=== PATIENT | female | born 1935 | race Caucasian/White ===

== ENCOUNTER 2016-11-09 10:20 | Observation (INO) ==
--- NOTE | 2016-11-09 11:07 | CT Report ---
CT head/brain wo con Indication: Left-sided facial droop, tingling, history of hypertension. Comparison: None. Technique: CT of the brain was performed without administration of intravenous contrast. The CT examination was performed using one or more of the following dose reduction techniques: Automatic exposure control, adjustment of the mA and kV according to patient size, use of acute or iterative reconstruction techniques. Findings: Age-appropriate central and cortical atrophy is present. Periventricular hypoattenuation of white matter is fairly symmetric with exception of right frontal lobe which demonstrates a more focal area of low attenuation extending into the subcortical white matter. The overlying cortex appears somewhat hyperattenuating the significance of this may be artifactual. The basal cisterns are patent. No significant abnormality is demonstrated to involve the posterior fossa or cerebellum. Orbits and globes demonstrate no evidence of significant pathology. The paranasal sinuses are clear. No significant abnormality is demonstrated to involve the mastoid air cells. The calvarium and overlying soft tissues demonstrate no evidence of acute pathology. Impression: 1. Asymmetric frontal hypoattenuation of white matter on the right extending into the subcortical white matter is concerning for early ischemic change. MRI without intravenous contrast administration is recommended for further characterization and exclusion of acute ischemia. Critical test results were called to Dr. Meza, [facility] [place] [facility], at 1103 hours 11/09/2016 . 11/09/2016 10:51 AM PROCEDURE INTERPRETED AT [facility] DEPARTMENT OF RADIOLOGY Final Report Signed by: Dr. Luis Alberto Martinez
[2016-11-09] MEDS ORDERED: BISACODYL 5 MG TABLET PO PRN (13:45)
[2016-11-09] MEDS ORDERED: ACETAMINOPHEN 325 MG TABLET PO PRN (13:45)
[2016-11-09] MEDS ORDERED: ONDANSETRON 4 MG/2 ML VIAL IV PRN (13:45)
[2016-11-09] MEDS ORDERED: DOCUSATE SODIUM 100 MG CAPSULE PO PRN (13:45)
[2016-11-09] MEDS ORDERED: ZALEPLON 5 MG CAPSULE PO PRN (13:45)
--- NOTE | 2016-11-09 13:58 | Cardiology History & Physical ---
History of Present Illness History of present illness: Ms. Oseguera is a 80 year old female Home Medications Medication Instructions Recorded Confirmed Type Allopurinol 100 mg PO DAILY 03/13/15 03/13/15 History Budesonide/Formoterol 80-4.5 2 puff INH BID 03/13/15 03/13/15 History [Symbicort 80-4.5] Carvedilol [Coreg] 25 mg PO BID 03/13/15 03/13/15 History Digoxin Tab [Lanoxin Tab] 0.125 mg PO DAILY@1300 03/13/15 03/13/15 History Diltiazem Cd Cap [Cardizem CD] 1 tablet PO DAILY 03/13/15 03/13/15 History Furosemide Tab [Lasix Tab] 40 mg PO BID DIURETIC 03/13/15 03/13/15 History Glimepiride 4 mg PO BID 03/13/15 03/13/15 History Losartan Potassium 100 mg PO DAILY 03/13/15 03/13/15 History Potassium Chloride [Klor-Con 10] 1 tablet PO BID 03/13/15 03/13/15 History Pregabalin [Lyrica] 50 mg PO BEDTIME 03/13/15 03/13/15 History Warfarin [Coumadin] 0.5 tablet PO DIRECTED 03/13/15 03/13/15 History Warfarin [Coumadin] 7.5 mg PO DAILY@1800 03/13/15 03/13/15 History cloNIDine TAB [Catapres Tab] 0.1 mg PO BID 1 Days 11/07/16 Rx Allergies Allergy/AdvReac Type Severity Reaction Status Date / Time No Known Allergies Allergy Unverified 03/13/15 12:54 Medical,Surgical,& Family Hx - Medical History Cardio: History of: Cardiac Dysrhythmia (AFIB), Hypertension, Cardiovascular Problems (III/ holosystolic murmur) Endocrine: History of: Diabetes Mellitus (IDDM), Dyslipidemia Respiratory: History of: COPD Renal: History of: Renal Failure (CKD) Gastrointestinal: History of: Gastrointestinal Bleed - Surgical History Cardiac Surgeries: Sugical HX of: Cardiac Catheterization Reproductive Surgeries: Surgical HX of;: Hysterectomy - Social History Smoking Status: Former smoker Cardiology Physical Exam - Constitutional Vitals: Intake and Output 11/08/16 11/09/16 11/09/16 23:59 07:59 15:59 Other: Weight 97.976 kg Patient Weight 11/09/16 23:59 Weight 97.976 kg
--- NOTE | 2016-11-09 14:10 | EKG Report ---
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
[2016-11-09 14:15] LABS: Basophils % 0.4 % (0.0-0.8); Eosinophils # 0.2 10*3/uL (0.0-0.87); Eosinophils % 2.2 % (0.00-10.9); Hematocrit 41.5 VOL% (35.7-47.0); Hemoglobin 13.2 GM/DL (12.0-16.0); Immature Granulocytes % 0.4 %; Immature Granulocytes Absolute 0.03 #; Lymphocytes # 1.7 10*3/uL (1.4-4.0); Lymphocytes % 22.7 % (21.3-54.2); Mean Corpuscular HGB Conc 31.8 GM/DL (32-36); Mean Corpuscular Hemoglobin 30 PG (27-34); Mean Corpuscular Volume 93.7 FL (87-102); Mean Platelet Volume 10.6 FL (9.6-12.0); Monocytes # 0.7 10*3/uL (0.11-0.8); Monocytes % 9.3 % (1.7-12.7); Neutrophils # 4.7 10*3/uL (1.4-7.4); Platelet Count 205 T/CUMM (130-400); Red Blood Count 4.43 MC/CUMM (3.8-5.5); Red Cell Distribution Width 15.4 % (9.3-17.3); White Blood Count 7.3 T/CUMM (4-12)
[2016-11-09 14:51] LABS: Albumin 3.6 G/DL (3.4-5.0); Bilirubin,Total 0.4 MG/DL (0.2-1.0); Calcium 8.7 MG/DL (8.5-10.1); Potassium 4.1 MMOL/L (3.5-5.1); Total Protein 7.1 G/DL (6.4-8.3)
--- NOTE | 2016-11-09 16:17 | Event Note ---
Patient was admitted by Dr. Meza from clinic today. Please see the scanned in history and physical in [facility].
--- NOTE | 2016-11-09 16:23 | Event Note ---
Patient gone for MRI
--- NOTE | 2016-11-09 17:07 | Magnetic Resonance Report ---
MR head/brain wo con Indication: Altered mental status. Slurred speech. Facial droop. Comparison: None. Technique: Using 1.5 Anjali magnet, multisequence multiplanar MR imaging of the brain was performed without the administration of intravenous contrast. Findings: There is a central focus of increased signal within the aleksandr measuring 6.5 mm that has corresponding low signal on ADC map and faint increase in T2 as well as FLAIR signal on corresponding axial images. Subacute pontine infarct is suggested. Additionally present, there is a focal area of mixed T1 signal slightly hyperintense to the adjacent cortex within the anterior right frontal cortex as demonstrated on image #15 of the axial sequences. This has increased signal on T2 and increased signal in FLAIR sequences that has heterogeneous appearance. The small focus measures 17 mm in transverse dimension, 10.8 mm in AP dimension, and 16 mm in craniocaudal dimension. No acute intracranial hemorrhage is present. Ventricles appear symmetric with no midline shift. Increased white matter signal is noted within the anterior subcortical white matter of the right frontal lobe extending into the deep white matter. This extends to the margin of the above-described cortical mass. Additional bilateral areas of increased T2/FLAIR signal within the periventricular white matter are present that could reflect microvascular ischemic change. The basal cisterns appear patent. The arterial flow voids appear intact. The posterior fossa as well as cerebellum demonstrate no evidence of acute pathology. The orbits and globes demonstrate no evidence of acute pathology. The paranasal sinuses and mastoid air cells demonstrate no evidence of significant mucoperiosteal thickening. The calvarium as well as the soft tissues overlying the calvarium demonstrate no evidence of acute pathology. Impression: 1. Small focus of restricted diffusion centrally located within the aleksandr is considered compatible with central pontine infarct. Given the corresponding faintly increased T2/FLAIR signal, this likely reflects a subacute infarction. 2. 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 Measurements are as above. Repeat imaging following administration of intravenous contrast is recommended for further characterization. 11/09/2016 4:54 PM PROCEDURE INTERPRETED AT [facility] DEPARTMENT OF RADIOLOGY Final Report Signed by: Dr. Luis Alberto Martinez
--- NOTE | 2016-11-09 18:25 | Event Note ---
Patient's tal[place] afternoon. We will await the patient's evaluation. Neurology is to see the patient. She was going he came by earlier. Await Dr. Hernandez's evaluation. Dr. Moore is seen the patient for history of physical earlier. We' ll monitor the blood pressure make adjustments as needed indicated.
[2016-11-09] MEDS: INSULIN REGULAR 100 UNIT/ML SUBCUT SCH (21:00)
[2016-11-09] MEDS ORDERED: cloNIDine 0.1 MG TABLET PO ONE (22:48)
[2016-11-10] MEDS: INSULIN REGULAR 100 UNIT/ML SUBCUT SCH ×4 (08:31→22:04)
[2016-11-10] MEDS ORDERED: amLODIPine 5 MG TABLET PO SCH (09:00)
[2016-11-10] MEDS ORDERED: amLODIPine 10 MG TABLET PO SCH (09:00)
[2016-11-10] MEDS: PANTOPRAZOLE 40 MG TABLET PO SCH (10:11)
[2016-11-10 13:10] LABS: INR 1.8; PT Patient Result 19.2 SECS
[2016-11-10] MEDS ORDERED: amLODIPine 5 MG TABLET PO ONE (13:10)
--- NOTE | 2016-11-10 14:14 | Cardiology Progress Note ---
Assessment and Plan (1) Labile hypertension Status: Acute Assessment and plan: This is been a recent persistent problem and we need to adjust her medications which we are doing. She has no overt etiology of this. We will check her 24 hour for metanephrines and VMA's. Current Visit: Yes (2) Chronic atrial fibrillation Status: Chronic Assessment and plan: Will monitor heart rates off her rate limiting drugs. This certainly may increase her heart rate may have to adjust these. We'll try to use something different for her heart rates if needed. Current Visit: Yes (3) Type 2 diabetes mellitus Status: Chronic Assessment and plan: Is a chronic issue and we are watching patient with sliding scale. 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 We'll check carotid Dopplers. Current Visit: Yes (5) Carotid artery disease Status: Chronic Assessment and plan: Follow-up on carotid Dopplers. Certainly this may contribute to her stroke event. Current Visit: Yes (6) Tricuspid valve regurgitation Status: Chronic Assessment and plan: Because of her symptomatology will go ahead and check her echocardiogram. Current Visit: Yes (7) Mitral valve regurgitation Status: Chronic Assessment and plan: Plan follow-up with echocardiogram. Current Visit: Yes (8) Pulmonary hypertension Status: Chronic Assessment and plan: Doubt this is contributing to anything but we need to reassess significance of this by echocardiogram. Current Visit: Yes Cardiology - PN: Subj Interval history: The patient feels fairly well today but complains still little tingling numbness left side the face. We await neurology's evaluation and opinion regarding her abnormal CT/MRI. Question is patient's stroke and has so Y best approach is with her present medications. Her blood pressure continues to be an issue. We need to make some adjustments on her medications which were doing. This is been somewhat difficult to control recently. She's been on multiple medications but apparently has some intolerance to some of the medications. We are making some adjustments to see how she responds. We are certainly going to hold medications that cause bradycardia including the beta wilber and clonidine. She has chronic atrial fibrillation we may see that her heart rates increased and so we may have to add back some rate control medications such as digoxin or beta wilber. I discussed our plans for blood pressure with the family. She has normal renal function so do not feel he has some underlying renal process tocolysis. We may need to do a 24 hour urine for metanephrines and VMA. Exam (Progress Note) - Constitutional Vitals: Period Temp Pulse Resp BP Sys/Da Silva Pulse Ox Last 24 Hr 98 F-98.8 F 52-74 14-20 151-197/74-96 93-98 Exam: General appearance: normal weight, no acute distress HEENT exam: normal inspection, atraumatic Neck exam: normal inspection no JVD. No carotid bruit. Trachea is in midline Respiratory/lungs exam: clear to auscultation bilaterally good air movement. Cardiovascular exam: regular rate and rhythm, no murmur or gallop or rub. No precordial lift. Chest wall exam: nontender GI/Abdominal exam: normal bowel sounds, soft, nontender, no abdominal bruits or pulsatile masses. Extremeties/musculoskeletal: normal inspection without edema or cyanosis. Neurological exam: alert, oriented X3, no focal deficits Psychiatric exam: normal affect, normal mood. Cognitive function is grossly normal. Skin exam: normal color, warm Result/EKG - Labs CBC & BMP: 11/09/16 14:04 11/09/16 14:04 Lab Results: I have reviewed the past 24 hour labs Labs: Laboratory Results - last 24 hr 11/09/16 11/09/16 11/09/16 14:04 14:04 20:50 WBC 7.3 RBC 4.43 Hgb 13.2 Hct 41.5 MCV 93.7 MCH 30 MCHC 31.8 L RDW 15.4 Plt Count 205 MPV 10.6 Neut % (Auto) 65.0 Lymph % (Auto) 22.7 [place] % (Auto) 9.3 Eos % (Auto) 2.2 Baso % (Auto) 0.4 Neut # (Auto) 4.7 Lymph # (Auto) 1.7 [place] # (Auto) 0.7 Eos # (Auto) 0.2 Baso # (Auto) 0.0 Immature Gran % 0.4 Nucleated RBC % 0.0 Immature Gran # 0.03 Nucleated RBCs # 0.00 INR PT Patient/Control Mix Sodium 136 Potassium 4.1 Chloride 101 Carbon Dioxide 28 Anion Gap 11.1 BUN 22 H Creatinine 0.80 GFR Calculation 83 BUN/Creatinine Ratio 27.00 H Glucose 207 H POC Glucose 197 H Calculated Osmolality 280.0 Calcium 8.7 Total Bilirubin 0.40 AST 17 ALT 19 Alkaline Phosphatase 103 Total Protein 7.1 Albumin 3.6 Globulin 3.5 Albumin/Globulin Ratio 1.0 L 11/10/16 11/10/16 11/10/16 07:40 12:05 12:56 WBC RBC Hgb Hct MCV MCH MCHC RDW Plt Count MPV Neut % (Auto) Lymph % (Auto) [place] % (Auto) Eos % (Auto) Baso % (Auto) Neut # (Auto) Lymph # (Auto) [place] # (Auto) Eos # (Auto) Baso # (Auto) Immature Gran % Nucleated RBC % Immature Gran # Nucleated RBCs # INR 1.8 PT Patient/Control Mix 19.2 D Sodium Potassium Chloride Carbon Dioxide Anion Gap BUN Creatinine GFR Calculation BUN/Creatinine Ratio Glucose POC Glucose 116 H 185 H Calculated Osmolality Calcium Total Bilirubin AST ALT Alkaline Phosphatase Total Protein Albumin Globulin Albumin/Globulin Ratio - Impressions Impressions: Her telemetry reveals atrial fibrillation with controlled ventricular response at this time. Quality Measures - Stroke Onset of Symptoms Date: 11/07/16 Symptom Onset Unknown: Yes
--- NOTE | 2016-11-10 15:31 | Event Note ---
This is my second visit. Patient gone for ultrasound.
[2016-11-10] MEDS: CHLORTHALIDONE 25 MG TABLET PO SCH (15:35)
--- NOTE | 2016-11-10 15:50 | Ultrasound Report ---
Exam: Carotid ultrasound Date: 11/10/2016 Comparison: 12/25/2009 Technique: Duplex scans of the carotid and vertebral arteries using B-mode/Rmoe scale imaging and Doppler spectral analysis and color flow. Reason: CVA, left facial droop Findings: The right ICA measures 5.5 mm in diameter and the left ICA measures 5.1 mm in diameter. Color-flow documented in the visualized arteries. The peak systolic velocities are as follows: Right CCA: 44.5 cm/s Right ICA: 66.3 cm/s Right ECA: 61.2 cm/s Left CCA: 55.9 cm/s Left ICA: 84.6 cm/s Left ECA: 72.8 cm/s The peak systolic ICA/CCA velocity ratios are as follows: 1.5 on the right and 1.5 on the left. Antegrade flow is present in both vertebral arteries. Impression:[Less than 50% stenosis in both internal carotid arteries with heterogeneous plaque formation. Antegrade flow in both vertebral arteries.] The Society of Radiologists in Ultrasound consensus conference criteria was used. The Ultrasound images were captured and stored. PROCEDURE INTERPRETED AT [facility] DEPARTMENT OF RADIOLOGY Final Report Signed by: Dr. Jeanette Duarte
[2016-11-10 15:54] LABS: Apearance,Urine CLEAR (Clear); Bacteria,Urine Moderate /HPF (Few); Bilirubin,Urine Negative (Negative); Blood, Urine Negative (Negative); Glucose,Urine (UA) 50 mg/dL (Negative); Ketones,Urine Negative (Negative); Nitrite,Urine Negative (Negative); Protein,Urine Negative; RBC,Urine <1 /HPF (0-4); Squamous Epithelial Cell,Urine Occasional /HPF (0-10); Urine Color Straw (Yellow); Urine Specific Gravity 1.003 (1.001-1.035); Urine Urobilinogen < 2.0 EU/DL (0.2-1.0)
[2016-11-10] MEDS: WARFARIN 7.5 MG TABLET PO SCH (18:06)
--- NOTE | 2016-11-10 20:25 | ECHO Report ---
Jeanette Oseguera 11/10/2016 Exam Date: 14:54 Referring Physician: Arabella Dominguez Technologist: JESSY Age: 80 Ht (in): 66 Wt (lb): 215 FExam [facility] Gender: Echo [id number]: pulmonary HTN, TR, MR, CAD, HTN, chIndications:ronic Diabetes, A Fib BP: 186 / 84 HR: 63 sinus/supraventricularRhythm: GoodTechnical Quality: IMPRESSIONS 1. Left ventricle is normal size with concentric left ventricular hypertrophy. Ejection fraction is 55-60%. 2. Right ventricle is mildly increased in size with mild to moderately dilated right atrium. 3. Severely dilated left atrium. 4. Sclerotic mitral valve mitral and calcification and moderate regurgitation. 5. Aortic valve sclerotic structure but tricuspid without Doppler abnormalities. 6. Moderate tricuspid regurgitation. 7. Severely elevated right-sided pressures. MEASUREMENTS (Male / Female) Normal Values 2D ECHO LV Diastolic Diameter PLAX 4.3 cm 4.2 - 5.9 / 3.9 - 5.3 cm LV Systolic Diameter PLAX 2.3 cm LV Fractional Shortening PLAX 46.1 % IVS Diastolic Thickness 1.7 cm 0.6 - 1.0 / 0.6 - 0.9 cm LVPW Diastolic Thickness 1.3 cm 0.6 - 1.0 / 0.6 - 0.9 cm RV Internal Dim ED PLAX 3.3 cm Aortic Root Diameter 2.4 cm LA Systolic Diameter LX 5.4 cm 3.0 - 4.0 / 2.7 - 3.8 cm DOPPLER TR Peak Velocity 406.0 cm/s TR Peak Gradient 65.9 mmHg FINDINGS Left Ventricle Severely increased septal wall thickness. Mildly increased posterior wall thickness. Moderate concentric left ventricular hypertrophy with diastolic dysfunction. Left ventricular ejection fraction is estimated at 55-60 %. Right Ventricle Mildly increased right ventricular size but appears to have normal systolic function Right Atrium Mild to moderately increased right atrial size. Left Atrium Severely increased left atrial diameter. Mitral Valve Mild mitral valve sclerosis with posterior mitral annular calcification. Moderate mitral valve regurgitation. Aortic Valve Mild aortic valve sclerosis. No Doppler abnormalities. Tricuspid Valve Morphologically normal tricuspid valve. Moderate tricuspid valve regurgitation. Tricuspid regurgitation velocities suggest a PAP of 65.9 mmHg + RAP. Pulmonic Valve Morphologically normal pulmonic valve. Trace to mild pulmonary valve regurgitation. Pericardium No pericardial effusion. Aorta Normal size aortic root and proximal ascending aorta. Tello Martinez MD (Electronically Signed) 10 November 2016 Final Date: 20:24
[2016-11-10] MEDS: GLIMEPIRIDE 4 MG TABLET PO SCH (22:05)
[2016-11-10] MEDS: POTASSIUM CHLORIDE 10 MEQ TABLET PO SCH (22:05)
[2016-11-10] MEDS: PREGABALIN 50 MG CAPSULE PO SCH (22:05)
[2016-11-11 04:21] LABS: INR 1.7; PT Patient Result 18.1 SECS
--- NOTE | 2016-11-11 08:49 | Neurology Consult Note ---
History of Present Illness History of present illness: Ms. Oseguera is a 80 year old right-handed white lady who presented to the hospital with steady gait and not feeling well. Patient was found to have high blood pressure. She actually saw Dr. Moore and underwent a CT scan of the head which revealed questionable stroke later on admitted to the hospital for further evaluation. Patient also had some questionable left facial tingling and numbness. MRI read as a questionable pontine infarct. Patient has no lateralizing sign at this point. She reported that when she came to the hospital she has significant high blood pressure. She denies any speech difficulties, swallowing problems, localizing weakness. Patient reported that she had a unsteady gait for a long period of time. This has not changed. MRI of the brain revealed a small vessel disease cortically and subcortically and in the central pontine area. No acute changes seen. Echocardiogram reveals ejection fraction of 55-60%. Carotid Dopplers reveals less than 50% stenosis bilaterally. Home Medications Medication Instructions Recorded Confirmed Type Allopurinol 100 mg PO DAILY 03/13/15 11/09/16 History Budesonide/Formoterol 80-4.5 2 puff INH BID 03/13/15 11/09/16 History [Symbicort 80-4.5] Carvedilol [Coreg] 25 mg PO BID 03/13/15 11/09/16 History Digoxin Tab [Lanoxin Tab] 0.125 mg PO DAILY@1300 03/13/15 11/09/16 History Furosemide Tab [Lasix Tab] 40 mg PO BID DIURETIC 03/13/15 11/09/16 History Glimepiride 4 mg PO BID 03/13/15 11/09/16 History Losartan Potassium 50 mg PO DAILY 03/13/15 11/09/16 History Potassium Chloride [Klor-Con 10] 1 tablet PO BID 03/13/15 11/09/16 History Pregabalin [Lyrica] 50 mg PO BEDTIME 03/13/15 11/09/16 History Warfarin [Coumadin] 0.5 tablet PO SUTUSA 03/13/15 11/09/16 History Warfarin [Coumadin] 7.5 mg PO MOWEFRSA 03/13/15 11/09/16 History cloNIDine TAB [Catapres Tab] 0.1 mg PO BID 1 Days 04/16/17 04/18/17 Rx Albuterol Sulfate [Proair HFA] 2 puffs INH DAILY PRN 11/09/16 11/09/16 History Chlorthalidone 25 mg PO DAILY 11/09/16 11/09/16 History Ergocalciferol [Drisdol] 50,000 unit PO Q7D 11/09/16 11/09/16 History Insulin Glargine,Hum.rec.anlog 16 units SUBCUT BEDTIME 11/09/16 11/09/16 History [Lantus SoloStar] Magnesium Oxide [Magnesium] 1,200 mg PO DAILY 11/09/16 11/09/16 History Multivitamin (Ocuvite) [Ocuvite] 1 tablet PO DAILY 11/09/16 11/09/16 History Potassium Gluconate 500 mg PO DAILY 11/09/16 11/09/16 History amLODIPine [Norvasc] 5 mg PO DAILY 11/09/16 11/09/16 History Allergies Allergy/AdvReac Type Severity Reaction Status Date / Time No Known Allergies Allergy Unverified 03/13/15 12:54 12 point system: reviewed and no additional remarkable complaints except as stated Medical,Surgical,& Family Hx - Medical History Cardio: History of: Cardiac Dysrhythmia (AFIB), Hypertension, Cardiovascular Problems (III/ holosystolic murmur) HEENT: History of: Eye Problem (cataract) Endocrine: History of: Diabetes Mellitus (IDDM), Dyslipidemia Respiratory: History of: COPD Renal: History of: Renal Failure (CKD) Gastrointestinal: History of: Gastrointestinal Bleed Reproductive: History of: Ovarian Cysts - Surgical History Cardiac Surgeries: Sugical HX of: Cardiac Catheterization Abdominal Surgeries: Surgical HX of: Appendectomy, Cholecystectomy Reproductive Surgeries: Surgical HX of;: Hysterectomy Orthopedic Surgeries: Surgical HX of;: Total Knee Replacement (bilateral) - Family History Family History: Reports;: Family Diabetes, Family Heart Disease, Family Hypertension - Social History Smoking Status: Former smoker Frequency of Alcohol Use: None Type of Drug Use: None Exam - Constitutional Vitals: Period Temp Pulse Resp BP Sys/Da Silva Pulse Ox Last 24 Hr 97.6 F-98.8 F 63-89 15-95 136-208/67-106 93-96 Exam: GENERAL: Patient is in no acute distress. NECK: Neck is supple. There is no JVD. No carotid bruits present. No thyroid masses. CVS: First and second heart sounds are normal. There is no S3 present. Regular rate and rhythm. RESPIRATORY: Lungs are clear to auscultation without any rales or rhonchi. ABDOMEN: Soft and non-tender. Bowel sounds are present. There is no hepatosplenomegaly. EXT: There is no palpable edema. Peripheral pulses are present. Skin: No rashes Central Nervous system: General: Alert, awake and Oriented x 3 Speech: Fluent Comprehension: Intact and normal Facial expressions: Normal Cranial Nerves: CN1/Olfactory: Normal CN II/ Optic: Normal, Visual [place] unreliable CN III, and : PRITI & EOMI CN V: Normal & intact CN VII: face is symmetric CNVIII: Normal CN XI/X/XI/XII: Intact and Normal Motor: Bulk and Tone is normal. Strength in the right 4-5/5 Strength in the left 4-5/5 Sensory: Grossly intact for all the modalities of PP, LT and temp sense Reflexes: 1+ and symmetrical Cerebellar function: Normal finger to nose and heel to vides testing. Toes: Equivocal Gait: Able to get up and walk without assistance. Results - Labs CBC & BMP: 11/09/16 14:04 11/09/16 14:04 Assessment and Plan (1) Debility Status: Acute Assessment and plan: No evidence of acute stroke. Symptoms most likely represented accelerated hypertension. Continue Coumadin with target INR between 2 and 3. Add baby aspirin every other day No further recommendations from neuro standpoint Okay to go home when okay with PCP Follow-up with me on as needed basis Thank you for the consult Current Visit: Yes
[2016-11-11] MEDS ORDERED: ASPIRIN EC 81 MG TABLET PO SCH (09:00)
[2016-11-11] MEDS: POTASSIUM CHLORIDE 10 MEQ TABLET PO SCH ×2 (09:41→21:15)
[2016-11-11] MEDS: MAGNESIUM OXIDE 400 MG TABLET PO SCH (09:42)
[2016-11-11] MEDS: CHLORTHALIDONE 25 MG TABLET PO SCH (09:44)
[2016-11-11] MEDS: PANTOPRAZOLE 40 MG TABLET PO SCH (09:45)
[2016-11-11] MEDS: MULTIVITAMIN (OCUVITE) TABLET PO SCH (09:45)
[2016-11-11] MEDS: POTASSIUM GLUCONATE 500 MG TABLET PO SCH (09:45)
[2016-11-11] MEDS: ALLOPURINOL 100 MG TABLET PO SCH (09:46)
[2016-11-11] MEDS: GLIMEPIRIDE 4 MG TABLET PO SCH ×2 (09:48→21:15)
[2016-11-11] MEDS: INSULIN REGULAR 100 UNIT/ML SUBCUT SCH ×4 (09:49→21:15)
--- NOTE | 2016-11-11 10:04 | XRay Report ---
XR chest 2V Indication: Pulmonary hypertension Comparison: 07 November 2016 Findings: The heart and mediastinum are normal in size and configuration. The pulmonary vascularity is increased centrally, similar to previous study. Lung volumes are increased with prominent bronchial markings. No lung infiltrates, effusions, pneumothorax or other abnormality is demonstrated. Impression: Chronic lung changes. No acute process or significant change. PROCEDURE INTERPRETED AT [facility] DEPARTMENT OF RADIOLOGY Final Report Signed by: Dr. Ameya Irene
--- NOTE | 2016-11-11 11:45 | Discharge Summary ---
<Candida Braun - Last Filed: 11/12/16 15:28> Hospital Course - Hospital Course Hospital Course: Investment Analyst: Dr. Luke Martinez PCP: Dr. Coker Ms. Oseguera is a 80 year old female with a past medical history of COPD, pulmonary hypertension, diabetes, restless leg syndrome, TR, MR and chronic A. fib (on chronic anticoagulation with Coumadin, followed by Dr. Coker) . She was directly admitted to [facility] from cardiovascular [place] of the [facility] after seeing Dr. Meza November 09, 2016. At that time, she was complaining of facial numbness and tingling. She reportedly was seen in the ER on Tuesday and was noted to have uncontrolled blood pressure. Medications were then adjusted and patient was discharged home. Head CT was ordered and was noted to be abnormal, concerning for questionable stroke. At that time, patient was directly admitted to [facility] for further evaluation. She then underwent MRI which revealed a revealed a small vessel disease cortically and subcortically and in the central pontine area. It also revealed a probable intra-axial cortical- based neoplasm involving the anterior cortex of the right frontal lobe. Neurology was consulted. Dr. Thompson examined the patient. He felt that there was no evidence of acute stroke and that her symptoms were most likely secondary to accelerated hypertension. He recommends to continue Coumadin with target INR between 2-3 and 81 mg of aspirin every other day. Radiology then recommended a repeat MRI with contrast in order to better evaluate possible brain mass. MRI with contrast revealed 20 x 19 x 18 mm meningioma in the frontal lobe with adjacent cerebral edema. It also revealed an additional 7 x 6 x 5 mm meningioma in the right frontal convexity and moderate microvascular disease. Dr. Martinez discussed this with Dr. Thompson. Dr. Thompson feels that the meningiomas are benign. He recommends follow-up in approximately 1 month. Carotid ultrasound revealed less than 50% stenosis in both internal carotid arteries. Due to patient's history of severe TR, mitral regurgitation and pulmonary hypertension she underwent echocardiogram this admission. This revealed normal sized left ventricle with concentric left ventricular hypertrophy. Ejection fraction estimated at 55-60%. Sclerotic mitral valve with calcification and moderate regurgitation. Moderate tricuspid regurgitation and severely elevated right-sided pressures were noted. Aortic valve sclerosis. 24 hour urine was ordered to check for pheochromocytoma. Results pending. Blood pressure has better controlled after medications were adjusted. Patient was started on Procardia 30 mg p.o. daily and chlorthalidone. She was noted to be bradycardic when she was seen by Dr. Meza. At that time, he discontinued her clonidine. While in the hospital, all medications causing bradycardia, including beta-wilber and digoxin were held. Heart rates today are between 80 and 90 today. At this time, I think it is best that we restart her beta-wilber due to the fact that she has history of chronic atrial fibrillation. We will continue to hold her digoxin and clonidine. She will follow-up with Dr. Martinez in 1 week. At that time, he may consider reinitiating digoxin. She will also be given a follow-up appointment with Dr. Coker on Tuesday for INR check and Coumadin adjustments and with Dr. Thompson in one month. Patient was seen and examined on the telemetry floor. She is doing well today and is without complaints. She tells me that her facial numbness and tingling has not resolved and is without any neuro deficits. INR today is 2.0. She will continue with current Coumadin dosage and follow up with Dr. Coker on Tuesday with INR check and further Coumadin adjustments. Having felt that patient has met maximal medical therapy, she will be discharged home in stable condition. Patient verbalizes understanding of discharge instructions and discharge medications. - Time spent with patient Time with patient DS: Greater than 30 minutes Diagnosis - Discharge Diagnosis (1) Chronic atrial fibrillation Status: Chronic (2) Mitral valve regurgitation Status: Chronic (3) Pulmonary hypertension Status: Chronic (4) Tricuspid valve regurgitation Status: Chronic (5) Hypertension Status: Chronic Specialty Discharge - Follow Up or Referrals Follow up with: Cristino Thompson MD [Physician] - (Patient will follow Dr. Thompson in approximately 1 month for follow-up of brain neoplasm.) Tello Martinez MD [Physician] - 1 Week (Appointment with Dr. Martinez in 1 week with BMP and magnesium. Also to review results of 24-hour urine. Be there at 2:30 p.m. for lab work.) Steven Coker MD [Physician] - (Follow-up appointment with Dr. Coker with INR on Tuesday, November 15, 2016.) Discharge Plan - Discharge Data Disposition: Disch To Home/Self Care Condition at Discharge: Stable Discharge Diet: heart healthy Activity: resume usual activities as tolerated Hygiene: may shower Weight Bearing at Discharge: weight bear as tolerated Driving: not until seen by doctor Contact your physician if you experience:: fever over 101, Difficulty voiding, Redness or swelling, Nausea/Vomiting, Shortness of breath, Bleeding, pain uncontrolled by pain medications - Discharge Medications New NIFEdipine XL TAB [Procardia Xl] 30 mg PO DAILY #30 tablet Carvedilol [Coreg] 25 mg PO BID #60 tablet Continue Glimepiride 4 mg PO BID Pregabalin [Lyrica] 50 mg PO BEDTIME Allopurinol 100 mg PO DAILY Warfarin [Coumadin] 0.5 tablet PO SUTUSA Warfarin [Coumadin] 7.5 mg PO MOWEFRSA Potassium Chloride [Klor-Con 10] 1 tablet PO BID Budesonide/Formoterol 80-4.5 [Symbicort 80-4.5] 2 puff INH BID Ergocalciferol [Drisdol] 50,000 unit PO Q7D Insulin Glargine,Hum.rec.anlog [Lantus SoloStar] 16 units SUBCUT BEDTIME Multivitamin (Ocuvite) [Ocuvite] 1 tablet PO DAILY Albuterol Sulfate [Proair HFA] 2 puffs INH DAILY PRN PRN Reason: Shortness Of Breath Aspirin EC Tab 81 mg PO Q48H #15 tablet Potassium Gluconate 500 mg PO DAILY Chlorthalidone 25 mg PO DAILY #0 Changed Magnesium Oxide [Magnesium] 400 mg PO DAILY #0 Discontinued Losartan Potassium 50 mg PO DAILY Furosemide Tab [Lasix Tab] 40 mg PO BID DIURETIC Digoxin Tab [Lanoxin Tab] 0.125 mg PO DAILY@1300 Carvedilol [Coreg] 25 mg PO BID cloNIDine TAB [Catapres Tab] 0.1 mg PO BID 1 Days amLODIPine [Norvasc] 5 mg PO DAILY - Follow Up or Referral Follow Up: Cristino Thompson MD [Physician] - (Patient will follow Dr. Thompson in approximately 1 month for follow-up of brain neoplasm.) Steven Coker MD [Physician] - (Follow-up appointment with Dr. Coker with INR on Tuesday, November 15, 2016.) Tello Martinez MD [Physician] - 1 Week (Appointment with Dr. Martinez in 1 week with BMP and magnesium. Also to review results of 24-hour urine. Be there at 2:30 p.m. for lab work.) - Forms/Instructions Instructions: Ischemic Stroke (GEN), Hypertension (DC) Exam - Constitutional Vitals: Period Temp Pulse Resp BP Sys/Da Silva Pulse Ox Last 24 Hr 97.4 F-99.2 F 81-109 16-20 138-169/68-95 92-96 Exam: General appearance: normal weight, no acute distress HEENT exam: normal inspection, atraumatic Neck exam: normal inspection no JVD. No carotid bruit. Trachea is in midline Respiratory/lungs exam: clear to auscultation bilaterally good air movement. Cardiovascular exam: regular rate and rhythm, no murmur or gallop or rub. No precordial lift. Chest wall exam: nontender GI/Abdominal exam: normal bowel sounds, soft, nontender, no abdominal bruits or pulsatile masses. Extremeties/musculoskeletal: normal inspection without edema or cyanosis. Neurological exam: alert, oriented X3, no focal deficits Psychiatric exam: normal affect, normal mood. Cognitive function is grossly normal. Skin exam: normal color, warm Discharge Results Procedures and tests throughout hospitalization: Pending Orders 11/10/16 19:20 Metanephrines, Fractionated,24 Routine Vanillylmandelic Acid 24 Hour Routine Labs on day of discharge: Labs from last 24 hours 11/12/16 11/12/16 11/12/16 11:35 07:16 05:27 WBC RBC Hgb Hct MCV MCH MCHC RDW Plt Count MPV Neut % (Auto) Lymph % (Auto) [place] % (Auto) Eos % (Auto) Baso % (Auto) Neut # (Auto) Lymph # (Auto) [place] # (Auto) Eos # (Auto) Baso # (Auto) Immature Gran % Nucleated RBC % Immature Gran # Nucleated RBCs # INR PT Patient/Control Mix Sodium 140 Potassium 3.7 Chloride 101 Carbon Dioxide 31 Anion Gap 11.7 BUN 16 Creatinine 0.80 GFR Calculation 82 BUN/Creatinine Ratio 20.00 Glucose 78 POC Glucose 176 H 106 Calculated Osmolality 278.4 Calcium 8.4 L Magnesium 2.2 11/12/16 11/12/16 11/11/16 05:27 05:27 20:35 WBC 6.7 RBC 4.59 Hgb 13.4 Hct 41.3 MCV 90.0 MCH 29 MCHC 32.4 RDW 15.2 Plt Count 206 MPV 10.8 Neut % (Auto) 55.4 Lymph % (Auto) 29.6 [place] % (Auto) 10.4 Eos % (Auto) 3.2 Baso % (Auto) 0.6 Neut # (Auto) 3.7 Lymph # (Auto) 2.0 [place] # (Auto) 0.7 Eos # (Auto) 0.2 Baso # (Auto) 0.0 Immature Gran % 0.8 Nucleated RBC % 0.0 Immature Gran # 0.05 Nucleated RBCs # 0.00 INR 2.0 PT Patient/Control Mix 22.1 D Sodium Potassium Chloride Carbon Dioxide Anion Gap BUN Creatinine GFR Calculation BUN/Creatinine Ratio Glucose POC Glucose 275 H Calculated Osmolality Calcium Magnesium - Imaging and Cardiology Procedure: Chest x-ray: report reviewed by me, CT: report reviewed by me, MRI: report reviewed by me, Ultrasound: report reviewed by me DS: Provider Date of admission: 11/09/16 13:45 Primary care physician: Dr. Coker Attending physician on admission: Anai Meza DO Consults: 11/09/16 13:56 Consult to Physician [CONS] Routine Comment: cva Consulting Provider: Cristino Thompson Consult to Specialist Group: Neurology Consult Notification Comment: LEFT MESSAGE AT 1425 OF CONSULT 11/09/16 14:09 Consult to Dietitian [CONS] Routine Reason for Dietitian: Other 11/12/16 11:45 Consult to Physician [CONS] Routine Comment: Meningioma with cerebral edema per MRI Consulting Provider: Cristino Thompson Discharging clinician: Candida Braun NP Expected date of discharge: 11/11/16 <Tello Martinez - Last Filed: 11/12/16 16:17> Hospital Course - Hospital Course Hospital Course: I have personally interviewed and examined the patient and chart reviewed. I discussed the case with Candida Braun NP. Agree with the assessment and plan. The patient is really doing well. Her blood pressures are up and down but stable. Her heart rate in course is chronic atrial fibrillation. Her heart rates up a little bit disoriented go back to her home dose of Coreg. We'll continue her chlorthalidone and Procardia for blood pressures. Her MRI with contrast reveals meningioma this is benign. Discussed this with the patient. She will be going home and follow with me in one week. Medications plans follow -up with all been explained to the patient. We will need to follow-up on her 24 urine for metanephrines and VMA. Diagnosis - Discharge Diagnosis (1) Labile hypertension Status: Chronic (2) Chronic atrial fibrillation Status: Chronic (3) Type 2 diabetes mellitus Status: Chronic (4) CVA (cerebral vascular accident) Status: Acute (5) Carotid artery disease Status: Chronic (6) Tricuspid valve regurgitation Status: Chronic (7) Mitral valve regurgitation Status: Chronic (8) Pulmonary hypertension Status: Chronic
--- NOTE | 2016-11-11 15:59 | Cardiology Progress Note ---
<Candida Braun - Last Filed: 11/11/16 15:50> Assessment and Plan (1) Chronic atrial fibrillation Status: Chronic Assessment and plan: She remains in atrial fibrillation with a controlled ventricular response. Heart rates at this time are in the 80s. I think it is best at this time to restart her beta-wilber. We will continue to hold her clonidine and digoxin due to previous episodes of bradycardia. We will monitor her heart rate closely overnight. Current Visit: Yes (2) Mitral valve regurgitation Status: Chronic Assessment and plan: Patient underwent echocardiogram. This revealed moderate mitral valve regurgitation. I will restart patient's beta wilber today. Current Visit: Yes (3) Pulmonary hypertension Status: Chronic Assessment and plan: Echocardiogram revealed severely elevated right-sided pressures. Will continue current plan of care. Further recommendations to follow per Dr. Martinez. Current Visit: Yes (4) Tricuspid valve regurgitation Status: Chronic Assessment and plan: Echocardiogram revealed moderate TR. Will continue current plan of care. Current Visit: Yes (5) Hypertension Status: Chronic Assessment and plan: This is much better controlled after initiation of Procardia and chlorthalidone. I will go ahead and restart patient's beta wilber at this time. We will monitor her overnight. Hopefully, she will be stable for discharge in the morning. 24 hour urine in progress to rule out pheochromocytoma. Current Visit: No Cardiology - PN: Subj Interval history: Pizza Chef: Dr. Luke Martinez PCP: Dr. Coker Ms. Oseguera is a 80 year old female with a past medical history of COPD, pulmonary hypertension, diabetes, restless leg syndrome, TR, MR and chronic A. fib (on chronic anticoagulation with Coumadin, followed by Dr. Coker) . She was directly admitted to [facility] from cardiovascular [place] of the [facility] after seeing Dr. Meza November 09, 2016. At that time, she was complaining of facial numbness and tingling. She reportedly was seen in the ER on Tuesday and was noted to have uncontrolled blood pressure. Medications were then adjusted and patient was discharged home. Head CT was ordered and was noted to be abnormal, concerning for questionable stroke. At that time, patient was directly admitted to [facility] for further evaluation. She then underwent MRI which revealed a revealed a small vessel disease cortically and subcortically and in the central pontine area, without any acute changes seen. Neurology was consulted. Dr. Thompson examined the patient. He felt that there was no evidence of acute stroke and that her symptoms were most likely secondary to accelerated hypertension. He recommends to continue Coumadin with target INR between 2-3 and 81 mg of aspirin every other day. Carotid ultrasound revealed less than 50% stenosis in both internal carotid arteries. Due to patient's history of severe TR, mitral regurgitation and pulmonary hypertension she underwent echocardiogram this admission. This revealed normal sized left ventricle with concentric left ventricular hypertrophy. Ejection fraction estimated at 55-60%. Sclerotic mitral valve with calcification and moderate regurgitation. Moderate tricuspid regurgitation and severely elevated right- sided pressures were noted. Aortic valve sclerosis. 24 hour urine was ordered to check for pheochromocytoma. This will be completed around 7 PM tonight. Results pending. Blood pressure is better controlled after medications were adjusted. Patient was started on Procardia 30 mg p.o. daily and chlorthalidone. Patient is no longer bradycardic. Her current heart rates are ranging 80s. She is doing well today and is without complaints. She tells me that her facial numbness and tingling has not resolved and is without any neuro deficits. INR today is 1.7. We will recheck this in the morning. We will monitor patient for 1 more night to confirm that her heart rate and blood pressure remained controlled. At this time, I think it is best that we restart her beta-wilber due to the fact that she has history of chronic atrial fibrillation. We will continue to hold her digoxin and clonidine. Hopefully, she will be stable for discharge in the morning after her 24 hour urine has been collected. Exam (Progress Note) - Constitutional Vitals: Period Temp Pulse Resp BP Sys/Da Silva Pulse Ox Last 24 Hr 97.6 F-98.8 F 70-89 15-95 136-208/65-106 93-96 Exam: General appearance: normal weight, no acute distress HEENT exam: normal inspection, atraumatic Neck exam: normal inspection no JVD. No carotid bruit. Trachea is in midline Respiratory/lungs exam: clear to auscultation bilaterally good air movement. Cardiovascular exam: regular rate and rhythm, no murmur or gallop or rub. No precordial lift. Chest wall exam: nontender GI/Abdominal exam: normal bowel sounds, soft, nontender, no abdominal bruits or pulsatile masses. Extremeties/musculoskeletal: normal inspection without edema or cyanosis. Neurological exam: alert, oriented X3, no focal deficits Psychiatric exam: normal affect, normal mood. Cognitive function is grossly normal. Skin exam: normal color, warm Result/EKG - Labs CBC & BMP: 11/09/16 14:04 11/09/16 14:04 Lab Results: I have reviewed the past 24 hour labs Labs: Laboratory Results - last 24 hr 11/10/16 11/10/16 11/11/16 19:38 Unknown 03:19 INR 1.7 PT Patient/Control Mix 18.1 POC Glucose 212 H Urine Color Straw Urine Appearance Clear Urine pH 6.0 Ur Specific [place] 1.003 Urine Protein Negative Urine Glucose (UA) 50 Urine Ketones Negative Urine Blood Negative Urine Nitrate Negative Urine Bilirubin Negative Urine Urobilinogen < 2.0 H Urine Leukocytes Negative Urine RBC <1 Ur Squamous Epith Cells Occasional Urine Bacteria Moderate Ur Culture Indicated? Not indicated 11/11/16 11/11/16 11/11/16 03:21 07:52 11:55 INR PT Patient/Control Mix POC Glucose 70 L 163 H 161 H Urine Color Urine Appearance Urine pH Ur Specific [place] Urine Protein Urine Glucose (UA) Urine Ketones Urine Blood Urine Nitrate Urine Bilirubin Urine Urobilinogen Urine Leukocytes Urine RBC Ur Squamous Epith Cells Urine Bacteria Ur Culture Indicated? Quality Measures - Stroke Onset of Symptoms Date: 11/07/16 Symptom Onset Unknown: Yes Specialty Discharge - Follow Up or Referrals Follow up with: Tello Martinez MD [Physician] - 11/24/16 2:50 pm (Appointment with Dr. Martinez in 1-2 weeks with BMP and magnesium. Also to review results of 24-hour urine. Be there at 2:30 p.m. for lab work.) Steven Coker MD [Physician] - (Follow-up appointment with Dr. Coker with INR on Tuesday, November 15, 2016.) <Tello Martinez - Last Filed: 11/11/16 18:36> Assessment and Plan (1) Labile hypertension Status: Chronic Current Visit: Yes (2) Chronic atrial fibrillation Status: Chronic Current Visit: Yes (3) Type 2 diabetes mellitus Status: Chronic Current Visit: Yes Qualifiers: Diabetes mellitus complication status: with neurologic complications Diabetes mellitus complication detail: with autonomic neuropathy Diabetes mellitus fdc insulin use: with fdc use Qualified Code(s): E11.43 - Type 2 diabetes mellitus with diabetic autonomic (poly)neuropathy; Z79.4 - group home (current) use of insulin (4) CVA (cerebral vascular accident) Status: Acute Current Visit: Yes (5) Carotid artery disease Status: Chronic Current Visit: Yes (6) Tricuspid valve regurgitation Status: Chronic Current Visit: Yes (7) Mitral valve regurgitation Status: Chronic Current Visit: Yes (8) Pulmonary hypertension Status: Chronic Current Visit: Yes Cardiology - PN: Subj Interval history: Patient personally examined and interviewed and chart reviewed. Discussed case with Candida Braun DIET CLERK. I agree with her assessment. The patient's blood pressures been stable but will monitor her another night especially off and with medication changes. Also her MRI had a questionable area in the frontal lobe of a mass. Dr. Hernandez did not address this. We will do a MRI of the brain tomorrow with contrast as recommended by radiology. After this is done in 24 hour urine is complete we will discharge the patient is stable. I discussed this with the patient's family. Exam (Progress Note) - Constitutional Vitals: Period Temp Pulse Resp BP Sys/Da Silva Pulse Ox Last 24 Hr 97.6 F-98.8 F 76-89 15-95 136-151/65-81 93-94 Result/EKG - Labs CBC & BMP: 11/09/16 14:04 11/09/16 14:04 Labs: Laboratory Results - last 24 hr 11/10/16 11/11/16 11/11/16 19:38 03:19 03:21 INR 1.7 PT Patient/Control Mix 18.1 POC Glucose 212 H 70 L 11/11/16 11/11/16 11/11/16 07:52 11:55 15:56 INR PT Patient/Control Mix POC Glucose 163 H 161 H 173 H
[2016-11-11] MEDS: WARFARIN 7.5 MG TABLET PO SCH (17:02)
[2016-11-11] MEDS ORDERED: CARVEDILOL 25 MG TABLET PO SCH (21:00)
[2016-11-11] MEDS: CARVEDILOL 12.5 MG TABLET PO SCH (21:15)
[2016-11-11] MEDS: PREGABALIN 50 MG CAPSULE PO SCH (21:15)
[2016-11-12 06:14] LABS: Basophils % 0.6 % (0.0-0.8); Eosinophils # 0.2 10*3/uL (0.0-0.87); Eosinophils % 3.2 % (0.00-10.9); Hematocrit 41.3 VOL% (35.7-47.0); Hemoglobin 13.4 GM/DL (12.0-16.0); Immature Granulocytes % 0.8 %; Immature Granulocytes Absolute 0.05 #; Lymphocytes % 29.6 % (21.3-54.2); Mean Corpuscular HGB Conc 32.4 GM/DL (32-36); Mean Corpuscular Hemoglobin 29 PG (27-34); Mean Platelet Volume 10.8 FL (9.6-12.0); Monocytes # 0.7 10*3/uL (0.11-0.8); Monocytes % 10.4 % (1.7-12.7); Neutrophils # 3.7 10*3/uL (1.4-7.4); Neutrophils % 55.4 % (38.7-73.9); Platelet Count 206 T/CUMM (130-400); Red Blood Count 4.59 MC/CUMM (3.8-5.5); Red Cell Distribution Width 15.2 % (9.3-17.3); White Blood Count 6.7 T/CUMM (4-12)
[2016-11-12 06:24] LABS: PT Patient Result 22.1 SECS
[2016-11-12 07:14] LABS: Calcium 8.4 MG/DL (8.5-10.1); Magnesium 2.2 MG/DL (1.8-2.4); Osmolality,Calculated 278.4 MOS/KG (273-304); Potassium 3.7 MMOL/L (3.5-5.1)
[2016-11-12] MEDS: INSULIN REGULAR 100 UNIT/ML SUBCUT SCH ×2 (09:11→12:25)
--- NOTE | 2016-11-12 11:13 | Magnetic Resonance Report ---
Exam: MR head/brain w and wo con Date: 11/12/2016 4:00 AM Comparison: 11/09/2016 Indication: Alteration of consciousness, slurred speech, facial droop, abnormal MRI Technique:[Multiple acquisitions were obtained including sagittal T1 before and after the injection of 20 cc of Dotarem, coronal T1 with contrast, and axial ADC, diffusion, FLAIR, T2, GRE, and T1 scans before and after injection of contrast. Scans were obtained on an open 1.2 Anjali magnet.] Findings: The ventricle remain normal in size with no midline displacement. The pituitary has a normal appearance and the cerebellar tonsils are normal in their location. Previous exam demonstrated small central pontine infarction with no abnormal enhancement in this location. Homogeneously enhancing extra-axial mass in the right frontal lobe measuring 20 x 19 x 18 mm. Evidence of a dural tail with surrounding edema. Additional 7 x 6 x 5 mm homogeneously enhancing extra axial mass in the right frontal convexity. Persistent atrophy and FLAIR/T2 hyperintensities. No acute findings in the paranasal sinuses, orbits, Robinson of [place], or venous sinuses. Progressive fluid in the mastoid air cells bilaterally. Impression: 20 x 19 x 18 mm meningioma in the right frontal lobe with adjacent cerebral edema. Additional 7 x 6 x 5 mm meningioma in the right frontal convexity. Previous exam demonstrated small central pontine infarction with no abnormal enhancement in this location. Persistent atrophy and moderate microvascular disease. T2 hyperintensities can also be associated with demyelinating disease, vasculitis, migraines, etc. Progressive minimal fluid in the mastoid air cells bilaterally. PROCEDURE INTERPRETED AT [facility] DEPARTMENT OF RADIOLOGY Final Report Signed by: Dr. Jeanette Duarte
[2016-11-12] MEDS: MAGNESIUM OXIDE 400 MG TABLET PO SCH (11:21)
[2016-11-12] MEDS: GLIMEPIRIDE 4 MG TABLET PO SCH (11:21)
[2016-11-12] MEDS: ALLOPURINOL 100 MG TABLET PO SCH (11:21)
[2016-11-12] MEDS: CHLORTHALIDONE 25 MG TABLET PO SCH (11:21)
[2016-11-12] MEDS: POTASSIUM CHLORIDE 10 MEQ TABLET PO SCH (11:21)
[2016-11-12] MEDS: PANTOPRAZOLE 40 MG TABLET PO SCH (11:21)
[2016-11-12] MEDS: POTASSIUM GLUCONATE 500 MG TABLET PO SCH (11:21)
[2016-11-12] MEDS: MULTIVITAMIN (OCUVITE) TABLET PO SCH (11:22)
[2016-11-12] MEDS: CARVEDILOL 12.5 MG TABLET PO SCH (11:22)
[2016-11-12 15:19] VITALS: BP 140/69
[2016-11-15] MEDS ORDERED: WARFARIN 7.5 MG TABLET PO SCH (18:00)
[2016-11-16 08:16] LABS: Urine Volume 3450 mL
[2016-11-16] MEDS ORDERED: ERGOCALCIFEROL 50,000 UNIT CAPSULE PO SCH (09:00)
[2016-11-16 15:46] LABS: Normetanephrine, U 252 mcg/24 h; Total Metanephrines, U 349 mcg/24 h; Urine Volume 3450 mL
== END 2016-11-12 16:48 | disposition home or self-care (01) ==
LOC: N.TELES 10:20 → N.CT 10:20 → N.TELES 13:08
PROVIDERS: ADMIT Internal Medicine Cardiovascular Disease; ATTEND Internal Medicine Cardiovascular Disease

== ENCOUNTER 2017-02-28 12:27 | Inpatient (IN) ==
[2017-02-28] MEDS ORDERED: PANTOPRAZOLE 40 MG VIAL IV STA (14:19)
[2017-02-28] MEDS ORDERED: ONDANSETRON 4 MG/2 ML VIAL IV STA (14:19)
[2017-02-28] MEDS ORDERED: SODIUM CHLORIDE 0.9% 500 ML IV STA (14:19)
--- NOTE | 2017-02-28 14:24 | Emergency Department Note ---
Arrival - Arrival Chief Complaint: Non-Specific Stated Complaint: dehydrated/sent by Dr Coker ED Nursing Triage Note: C/O Having nausea since february 21, states she feels like she is dehydrated, denies having increase temp at home., denies having pain., Mode of Arrival: Wheelchair Time Seen by Provider: 02/28/17 13:51 - History of Present Illness HPI Narrative: 81-year-old female sent from clinic for further evaluation of weakness dehydration and dizziness. She describes nausea without vomiting and decreased appetite for at least 2 weeks. She describes 3 or 4 months of issues with fluid retention, fluctuating 30 pounds or more depending upon what diuretics she is taking and how much. She also notes that her primary care was referring her to Dr. Aburto for a scope for positive occult blood test in her stool. She denies taking any kind of antacids her stomach medicines. She denies any significant pain at this time including abdominal pain. She denies any trouble breathing today, she says she does get short of breath when the fluid retention is worse but not recently. She notes a history of COPD and CHF and sees Dr. Martinez for her heart. Dr. Coker is her primary care. Allergies/Adverse Reactions: Allergies Allergy/AdvReac Type Severity Reaction Status Date / Time diphenhydramine Allergy HIVES Verified 02/28/17 12:46 [From Benjustinol] Home Medications: Home Medications Medication Instructions Recorded Confirmed Type Allopurinol 100 mg PO DAILY 03/13/15 11/09/16 History Budesonide/Formoterol 80-4.5 2 puff INH BID 03/13/15 11/09/16 History [Symbicort 80-4.5] Glimepiride 4 mg PO BID 03/13/15 11/09/16 History Potassium Chloride [Klor-Con 10] 1 tablet PO BID 03/13/15 11/09/16 History Pregabalin [Lyrica] 50 mg PO BEDTIME 03/13/15 11/09/16 History Warfarin [Coumadin] 0.5 tablet PO SUTUSA 03/13/15 11/09/16 History Warfarin [Coumadin] 7.5 mg PO MOWEFRSA 03/13/15 11/09/16 History Albuterol Sulfate [Proair HFA] 2 puffs INH DAILY PRN 11/09/16 11/09/16 History Ergocalciferol [Drisdol] 50,000 unit PO Q7D 11/09/16 11/09/16 History Insulin Glargine,Hum.rec.anlog 16 units SUBCUT BEDTIME 11/09/16 11/09/16 History [Lantus SoloStar] Multivitamin (Ocuvite) [Ocuvite] 1 tablet PO DAILY 11/09/16 11/09/16 History Potassium Gluconate 500 mg PO DAILY 11/09/16 11/09/16 History Aspirin EC Tab 81 mg PO Q48H #15 tablet 11/11/16 Rx NIFEdipine XL TAB [Procardia Xl] 30 mg PO DAILY #30 tablet 11/11/16 Rx Carvedilol [Coreg] 25 mg PO BID #60 tablet 11/12/16 Rx Chlorthalidone 25 mg PO DAILY #0 11/12/16 11/09/16 Rx Magnesium Oxide [Magnesium] 400 mg PO DAILY #0 11/12/16 11/09/16 Rx Review of System - Review of System 12 point system: reviewed and no additional remarkable complaints except as stated Medical,Surgical,& Family Hx - Medical History Cardio: History of: Cardiac Dysrhythmia (AFIB), Hypertension, Cardiovascular Problems (III/ holosystolic murmur) HEENT: History of: Eye Problem (cataract) Endocrine: History of: Diabetes Mellitus (IDDM), Dyslipidemia Respiratory: History of: COPD Renal: History of: Renal Failure (CKD) Gastrointestinal: History of: Gastrointestinal Bleed Reproductive: History of: Ovarian Cysts - Surgical History Cardiac Surgeries: Sugical HX of: Cardiac Catheterization Abdominal Surgeries: Surgical HX of: Appendectomy, Cholecystectomy Reproductive Surgeries: Surgical HX of;: Hysterectomy Orthopedic Surgeries: Surgical HX of;: Total Knee Replacement (bilateral) - Family History Family History: Reports;: Family Diabetes, Family Heart Disease, Family Hypertension - Social History Smoking Status: Former smoker Frequency of Alcohol Use: None Type of Drug Use: None Exam Physical Examination: Elderly female, awake and alert and oriented 3, good historian, no acute distress. Vital signs as documented. Lungs are clear bilaterally. Cardiovascular regular rate and rhythm. Abdomen soft nontender nondistended without rigidity or rebound. Skin exam unremarkable. Trace bilateral lower extremity edema noted. Vital Signs: Vital Signs Temperature 98.0 F 08/07/17 12:42 Pulse Rate 74 02/28/17 14:40 Respiratory Rate 18 02/28/17 14:40 Blood Pressure 170/98 02/28/17 14:40 O2 Sat by Pulse Oximetry 97 02/28/17 12:42 Course Course Narrative: Medical decision making: Discussed patient's situation with Dr. Coker and her primary care provider who would agree to admit her for rehydration and to recheck electrolytes. Results - Labs CBC & BMP: 02/28/17 14:26 02/28/17 14:26 Lab Results: I have reviewed the patients labs Labs: UA NEG Disposition Clinical Impression: Hyponatremia, Dehydration Case discussed with: patient Disposition: Still a Patient Condition: Stable Time of Disposition: 15:29
[2017-02-28] MEDS ORDERED: PANTOPRAZOLE 40 MG VIAL IV ONE (14:35)
[2017-02-28] MEDS ORDERED: ONDANSETRON 4 MG/2 ML VIAL ONE (14:35)
[2017-02-28 14:42] LABS: Basophils % 0.5 % (0.0-0.8); Eosinophils # 0.1 10*3/uL (0.0-0.87); Eosinophils % 1.3 % (0.00-10.9); Hematocrit 40.5 VOL% (35.7-47.0); Hemoglobin 14.2 GM/DL (12.0-16.0); Immature Granulocytes % 0.9 %; Immature Granulocytes Absolute 0.07 #; Lymphocytes # 1.6 10*3/uL (1.4-4.0); Lymphocytes % 20.1 % (21.3-54.2); Mean Corpuscular HGB Conc 35.1 GM/DL (32-36); Mean Corpuscular Hemoglobin 30 PG (27-34); Mean Corpuscular Volume 84.2 FL (87-102); Mean Platelet Volume 10.1 FL (9.6-12.0); Monocytes # 0.8 10*3/uL (0.11-0.8); Monocytes % 9.6 % (1.7-12.7); Neutrophils # 5.3 10*3/uL (1.4-7.4); Neutrophils % 67.6 % (38.7-73.9); Platelet Count 215 T/CUMM (130-400); Red Blood Count 4.81 MC/CUMM (3.8-5.5); Red Cell Distribution Width 13.5 % (9.3-17.3); White Blood Count 7.8 T/CUMM (4-12)
[2017-02-28 14:49] LABS: Apearance,Urine CLEAR (Clear); Bacteria,Urine Moderate /HPF (Few); Bilirubin,Urine Negative (Negative); Blood, Urine Negative (Negative); Glucose,Urine (UA) Negative (Negative); Ketones,Urine Negative (Negative); Mucus,Urine Occasional /LPF (Occasional); Nitrite,Urine Negative (Negative); Protein,Urine Negative; RBC,Urine <1 /HPF (0-4); Squamous Epithelial Cell,Urine Occasional /HPF (0-10); Urine Color Yellow (Yellow); Urine Specific Gravity 1.006 (1.001-1.035); Urine Urobilinogen < 2.0 EU/DL (0.2-1.0); WBC,Urine <1 /HPF (0-6)
[2017-02-28 15:04] LABS: Calcium 9.3 MG/DL (8.5-10.1); Magnesium 2.5 MG/DL (1.8-2.4); Osmolality,Calculated 249.1 MOS/KG (273-304); Potassium 3.4 MMOL/L (3.5-5.1)
[2017-02-28] MEDS ORDERED: ONDANSETRON 4 MG/2 ML VIAL IV PRN (15:30)
[2017-02-28] MEDS ORDERED: ACETAMINOPHEN 325 MG TABLET PO PRN (15:30)
[2017-02-28] MEDS ORDERED: ORPHENADRINE 60 MG/2 ML VIAL IV STA (15:33)
--- NOTE | 2017-02-28 16:02 | Internal Med History&Physical ---
Assessment and Plan (1) Dehydration Status: Acute Assessment and plan: 81-year-old female admitted to acute care * Dehydration. Patient has been on diuretics because of recurrent episodes of fluid overload. She appears to be slightly dry. Will hold her diuretics and hydrate her gently. * Hyponatremia. She has been drinking a lot of fluids and has been taking diuretics. Will hold diuretics and hopefully sodium will come up slowly. Her nausea is probably related to hyponatremia. * Diabetes. Will start her on sliding scale. She will continue her medication * Congestive heart failure. She had echo done earlier this year. Her ejection fraction was normal. * Hypertension. Blood pressure is stable. * Discussed with patient and her Current Visit: Yes (2) Hyponatremia Status: Acute Current Visit: Yes (3) Chronic atrial fibrillation Status: Chronic Current Visit: No (4) Labile hypertension Status: Chronic Current Visit: No (5) Pulmonary hypertension Status: Chronic Current Visit: No (6) Type 2 diabetes mellitus Status: Chronic Current Visit: No Qualifiers: Diabetes mellitus complication status: with neurologic complications Diabetes mellitus complication detail: with autonomic neuropathy Diabetes mellitus longterm insulin use: with longterm use Qualified Code(s): E11.43 - Type 2 diabetes mellitus with diabetic autonomic (poly)neuropathy; 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 Oseguera is a 81 year old female with history of multiple medical problems including COPD, pulmonary hypertension, diabetes, congestive heart failure, restless leg syndrome, chronic A. fib on chronic anticoagulation, recurrent episodes of congestive heart failure recently went to the emergency room this morning with weakness and dizziness. She has not been feeling well. She gets quite lightheaded when she gets up. She has not fallen but feels like she may lose her balance. She has lost 5 pounds since 21 February. She has been having a lot of problems with fluid overload recently. She responds quite dramatically to Zaroxolyn. She also had positive Hemoccult stool. She has been in process of evaluation. Denies any chest pain or shortness of breath. She has been extremely nauseated over last few days and has no appetite. She denies any vomiting. Patient lives at home with her . She is a former smoker. Home Medications Medication Instructions Recorded Confirmed Type Allopurinol 100 mg PO DAILY 03/13/15 11/09/16 History Budesonide/Formoterol 80-4.5 2 puff INH BID 03/13/15 11/09/16 History [Symbicort 80-4.5] Glimepiride 4 mg PO BID 03/13/15 11/09/16 History Potassium Chloride [Klor-Con 10] 1 tablet PO BID 03/13/15 11/09/16 History Pregabalin [Lyrica] 50 mg PO BEDTIME 03/13/15 11/09/16 History Warfarin [Coumadin] 0.5 tablet PO SUTUSA 03/13/15 11/09/16 History Warfarin [Coumadin] 7.5 mg PO MOWEFRSA 03/13/15 11/09/16 History Albuterol Sulfate [Proair HFA] 2 puffs INH DAILY PRN 11/09/16 11/09/16 History Ergocalciferol [Drisdol] 50,000 unit PO Q7D 11/09/16 11/09/16 History Insulin Glargine,Hum.rec.anlog 16 units SUBCUT BEDTIME 11/09/16 11/09/16 History [Lantus SoloStar] Multivitamin (Ocuvite) [Ocuvite] 1 tablet PO DAILY 11/09/16 11/09/16 History Potassium Gluconate 500 mg PO DAILY 11/09/16 11/09/16 History Aspirin EC Tab 81 mg PO Q48H #15 tablet 11/11/16 Rx NIFEdipine XL TAB [Procardia Xl] 30 mg PO DAILY #30 tablet 11/11/16 Rx Carvedilol [Coreg] 25 mg PO BID #60 tablet 11/12/16 Rx Chlorthalidone 25 mg PO DAILY #0 11/12/16 11/09/16 Rx Magnesium Oxide [Magnesium] 400 mg PO DAILY #0 11/12/16 11/09/16 Rx Allergies Allergy/AdvReac Type Severity Reaction Status Date / Time diphenhydramine Allergy HIVES Verified 02/28/17 12:46 [From Jonatan] Medical,Surgical,& Family Hx - Medical History Cardio: History of: Cardiac Dysrhythmia (AFIB), CHF (Congestive heart failure with preserved ejection fraction), Hypertension, Cardiovascular Problems (III/ holosystolic murmur) HEENT: History of: Eye Problem (cataract) Endocrine: History of: Diabetes Mellitus (IDDM), Dyslipidemia Respiratory: History of: COPD Renal: History of: Renal Failure (CKD) Gastrointestinal: History of: Gastrointestinal Bleed Reproductive: History of: Ovarian Cysts - Surgical History Cardiac Surgeries: Sugical HX of: Cardiac Catheterization Abdominal Surgeries: Surgical HX of: Appendectomy, Cholecystectomy Reproductive Surgeries: Surgical HX of;: Hysterectomy Orthopedic Surgeries: Surgical HX of;: Total Knee Replacement (bilateral) - Family History Family History: Reports;: Family Diabetes, Family Heart Disease, Family Hypertension - Social History Smoking Status: Former smoker Frequency of Alcohol Use: None Type of Drug Use: None Marital Status: Lives With:: Spouse Functional capacity: uses cane/walker 12 point system: reviewed and no additional remarkable complaints except as stated (As mentioned in HPI) Exam - Constitutional Vitals: Period Temp Pulse Resp BP Sys/Da Silva Pulse Ox Last 24 Hr 98.0 F 74-100 16-18 129-170/74-99 97 Exam: Examination: GENERAL: NAD. HEENT: PERRLA. EOMI. Mucous membranes are moist. NECK: Neck is supple. No JVD. No carotid bruit. No thyromegaly. CVS: Regular rate and rhythm. S1 and S2 are normal. RESPIRATORY: Lungs are clear. No rales or rhonchi. ABDOMEN: Soft and nontender. Bowel sounds are present. No hepatosplenomegaly. EXT: No edema. Peripheral pulses are present. 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 Cranial nerves II through XII are grossly intact. Motor strength is 3-4/5 SKIN: Warm and dry. MSK: No obvious deformity. Results - Labs CBC & BMP: 02/28/17 14:26 02/28/17 14:26 Lab Results: I have reviewed the past 24 hour labs
[2017-02-28] MEDS ORDERED: ORPHENADRINE 60 MG/2 ML VIAL ONE (16:34)
[2017-02-28 17:31] LABS: INR 1.8
[2017-02-28] MEDS: SODIUM CHLORIDE 0.9% 1,000 ML IV SCH (18:01)
[2017-02-28] MEDS ORDERED: ALBUTEROL 2.5 MG/3 ML NEB RESP TX PRN (20:39)
[2017-02-28] MEDS ORDERED: WARFARIN 7.5 MG TABLET PO SCH (21:00)
[2017-02-28] MEDS: FAMOTIDINE 20 MG TABLET PO SCH (22:32)
[2017-02-28] MEDS: CARVEDILOL 25 MG TABLET PO SCH (22:32)
[2017-02-28] MEDS: DOCUSATE SODIUM 100 MG CAPSULE PO SCH (22:33)
[2017-02-28] MEDS: GLIMEPIRIDE 4 MG TABLET PO SCH (22:34)
[2017-02-28] MEDS: POTASSIUM CHLORIDE 10 MEQ TABLET PO SCH (22:34)
[2017-03-01] MEDS: SODIUM CHLORIDE 0.9% 1,000 ML IV SCH ×3 (02:01→23:52)
[2017-03-01 06:44] LABS: INR 1.7; PT Patient Result 18.8 SECS
[2017-03-01 07:06] LABS: Albumin 2.9 G/DL (3.4-5.0); Bilirubin,Total 0.9 MG/DL (0.2-1.0); Calcium 8.1 MG/DL (8.5-10.1); Osmolality,Calculated 262.8 MOS/KG (273-304); Potassium 3.4 MMOL/L (3.5-5.1); Total Protein 6.2 G/DL (6.4-8.3)
--- NOTE | 2017-03-01 08:20 | Internal Med Progress Note ---
Assessment and Plan (1) Dehydration Status: Acute Assessment and plan: 81-year-old female admitted to acute care * Dehydration. Much better. Will decrease IV fluids to 75 cc an hour * Hyponatremia. Sodium is up to 130 and much better. Her weakness has improved. Will get PT and OT to evaluate * Atrial fibrillation. Continue Coumadin. Ventricular rate is controlled * Diabetes. Will start her on sliding scale. She will continue her medication * Congestive heart failure. Compensated. Will watch her weight * Hypertension. Blood pressure is stable. 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 Oseguera is feeling much better this morning. Her weakness has improved. She denies any shortness of breath. She is still dizzy on getting up but much better than yesterday. She denies any nausea or vomiting. Exam (Progress Note) - Constitutional Vitals: Period Temp Pulse Resp BP Sys/Da Silva Pulse Ox Last 24 Hr 96.7 F-98.0 F 67-102 16-20 129-170/74-99 95-98 Exam: Examination: GENERAL: NAD. HEENT: Mucous membranes are moist. NECK: Neck is supple. CVS: Regular rate and rhythm. S1 and S2 are normal. RESPIRATORY: Lungs are clear. ABDOMEN: Soft and nontender. EXT: No edema. Peripheral pulses are present. 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 Motor strength is 3-4/5 SKIN: Warm and dry. MSK: No obvious deformity. Results - Labs CBC & BMP: 02/28/17 14:26 03/01/17 05:28 Lab Results: I have reviewed the past 24 hour labs
[2017-03-01] MEDS: BUDESONIDE/FORMOTEROL 80-4.5 INHALER 6.9 GM INH SCH ×2 (10:31→20:52)
[2017-03-01] MEDS: MULTIVITAMIN (OCUVITE) TABLET PO SCH (10:32)
[2017-03-01] MEDS: DOCUSATE SODIUM 100 MG CAPSULE PO SCH ×2 (10:32→20:51)
[2017-03-01] MEDS: FAMOTIDINE 20 MG TABLET PO SCH ×2 (10:32→20:51)
[2017-03-01] MEDS: POTASSIUM CHLORIDE 10 MEQ TABLET PO SCH ×2 (10:32→20:51)
[2017-03-01] MEDS: ALLOPURINOL 100 MG TABLET PO SCH (10:32)
[2017-03-01] MEDS: GLIMEPIRIDE 4 MG TABLET PO SCH ×2 (10:32→20:51)
[2017-03-01] MEDS: MAGNESIUM OXIDE 400 MG TABLET PO SCH (10:32)
[2017-03-01] MEDS: OMEGA 3 ACID ETHYL ESTERS 1 GM CAPSULE PO SCH (10:32)
[2017-03-01] MEDS: GABAPENTIN 100 MG CAPSULE PO SCH (10:32)
[2017-03-01] MEDS: CARVEDILOL 25 MG TABLET PO SCH ×2 (10:32→20:52)
--- NOTE | 2017-03-01 11:52 | Physician Query Form ---
CLICK EDIT DOCUMENT TO SELECT QUERY ANSWER --> OK --> SIGN Juani Stevens RN Clinical Hvac Installation Technician W) [phone] (f) [phone] [email or web address] PROVIDERS: Make your selection(s) from the choices in EACH section by typing an "x" and enter comments in the comment section. Please use your independent medical judgment in providing your response. This request does not imply that any particular answer is desired or expected. CLINICAL INDICATORS: (Providers should not edit this section) Based on documentation of "CHF", Echo done 11/10/16 showed EF 55-60% with diastolic dysfunction. Pt. treated with Lasix as home medication. Please provide further specificity regarding CHF. TYPE: ( x) Systolic (HFrEF - heart failure with reduced systolic function/EF) ( ) Diastolic (HFpEF - heart failure with preserved systolic function/EF) ( ) Combined Systolic/Diastolic ( ) Other, please specify: ( ) Clinically unable to determine ( ) Past Medical History of Systolic CHF ( ) Past Medical History of Diastolic CHF ( ) Clinically unable to determine COMMENTS: PLEASE ALSO DOCUMENT RESPONSE IN PROGRESS NOTES AND/OR DISCHARGE SUMMARY Use of terms such as suspected, likely, or probable (associated with a specific diagnosis that is being evaluated, monitored, or treated as if it exists) are acceptable and can be restated in the discharge summary if not ruled out. MTDD
[2017-03-02 06:21] LABS: Basophils % 0.5 % (0.0-0.8); Eosinophils # 0.2 10*3/uL (0.0-0.87); Eosinophils % 2.9 % (0.00-10.9); Hematocrit 36.7 VOL% (35.7-47.0); Hemoglobin 12.7 GM/DL (12.0-16.0); Immature Granulocytes % 0.8 %; Immature Granulocytes Absolute 0.05 #; Lymphocytes # 1.7 10*3/uL (1.4-4.0); Lymphocytes % 29.3 % (21.3-54.2); Mean Corpuscular HGB Conc 34.6 GM/DL (32-36); Mean Corpuscular Hemoglobin 30 PG (27-34); Mean Corpuscular Volume 86.6 FL (87-102); Mean Platelet Volume 10.2 FL (9.6-12.0); Monocytes # 0.7 10*3/uL (0.11-0.8); Monocytes % 11.4 % (1.7-12.7); Neutrophils # 3.3 10*3/uL (1.4-7.4); Neutrophils % 55.1 % (38.7-73.9); Platelet Count 211 T/CUMM (130-400); Red Blood Count 4.24 MC/CUMM (3.8-5.5); Red Cell Distribution Width 14.2 % (9.3-17.3); White Blood Count 5.9 T/CUMM (4-12)
[2017-03-02 06:32] LABS: INR 1.7; PT Patient Result 18.7 SECS
[2017-03-02 06:50] LABS: Calcium 8.5 MG/DL (8.5-10.1); Osmolality,Calculated 271.8 MOS/KG (273-304); Potassium 3.9 MMOL/L (3.5-5.1)
[2017-03-02 07:59] VITALS: BP 153/84
[2017-03-02] MEDS: GABAPENTIN 100 MG CAPSULE PO SCH (08:22)
[2017-03-02] MEDS: MAGNESIUM OXIDE 400 MG TABLET PO SCH (08:22)
[2017-03-02] MEDS: MULTIVITAMIN (OCUVITE) TABLET PO SCH (08:22)
[2017-03-02] MEDS: CARVEDILOL 25 MG TABLET PO SCH (08:22)
[2017-03-02] MEDS: DOCUSATE SODIUM 100 MG CAPSULE PO SCH (08:22)
[2017-03-02] MEDS: ALLOPURINOL 100 MG TABLET PO SCH (08:22)
[2017-03-02] MEDS: POTASSIUM CHLORIDE 10 MEQ TABLET PO SCH (08:22)
[2017-03-02] MEDS: GLIMEPIRIDE 4 MG TABLET PO SCH (08:22)
[2017-03-02] MEDS: FAMOTIDINE 20 MG TABLET PO SCH (08:22)
[2017-03-02] MEDS: OMEGA 3 ACID ETHYL ESTERS 1 GM CAPSULE PO SCH (08:25)
[2017-03-02] MEDS: BUDESONIDE/FORMOTEROL 80-4.5 INHALER 6.9 GM INH SCH (08:27)
--- NOTE | 2017-03-02 08:49 | Discharge Summary ---
Hospital Course - Hospital Course Hospital Course: Patient is 81-year-old female with history of multiple medical problems including COPD, pulmonary hypertension, diabetes, congestive heart failure, restless leg syndrome, chronic A. fib on chronic anticoagulation and recurrent episodes of congestive heart failure who was admitted with an increased weakness and dizziness. She was found to be severely hyponatremic and dehydrated. Patient was started on IV fluids and gradually improved over last 48 hours. Her sodium has increased to 137. She is feeling much better and is ambulating without any problems. She has gained about 6 pounds since she has come to the hospital. Will restart her Lasix at 40 mg twice daily but decrease Zaroxolyn to 2.5 mg half tablet every other day. Her nifedipine has been stopped. Her blood sugars are slightly low at this morning. She will be continued on insulin and glimepiride. She will be seen in the office within the next 10 days. Will reevaluate her fluid status at that time. Diagnosis - Discharge Diagnosis (1) Dehydration Status: Acute (2) Hyponatremia Status: Acute (3) Chronic atrial fibrillation Status: Chronic (4) Labile hypertension Status: Chronic (5) Pulmonary hypertension Status: Chronic (6) Type 2 diabetes mellitus Status: Chronic Discharge Plan - Discharge Data Disposition: Disch To Home/Self Care Condition at Discharge: Stable Discharge Diet: diabetic diet Activity: resume usual activities as tolerated - Discharge Medications Continue Glimepiride 4 mg PO BID Allopurinol 100 mg PO DAILY Warfarin [Coumadin] 7.5 mg PO MOWEFRSA Potassium Chloride [Klor-Con 10] 1 tablet PO BID Budesonide/Formoterol 80-4.5 [Symbicort 80-4.5] 2 puff INH BID Multivitamin (Ocuvite) [Ocuvite] 1 tablet PO DAILY Albuterol Sulfate [Proair HFA] 2 puffs INH DAILY PRN PRN Reason: Shortness Of Breath Aspirin EC Tab 81 mg PO Q48H #15 tablet Magnesium Oxide [Magnesium] 400 mg PO DAILY #0 Carvedilol [Coreg] 25 mg PO BID #60 tablet Furosemide 40 mg PO BID [place]-3S/Dha/Epa/Fish Oil [Fish Oil 1,200 mg Softgel] 1 each PO DAILY Insulin Glargine [Lantus] 16 units SUBCUT BEDTIME Changed metOLazone [Metolazone] 2.5 mg PO Q48H #0 Discontinued Gabapentin Cap/Tab [Neurontin Cap/Tab] 100 mg PO DAILY - Follow Up or Referral - Forms/Instructions Additional Discharge Instructions: Appointment on 10 March with TCM. Check CBC and a BMP and a PT/INR. Zaroxolyn dose has been decreased to 2.5 mg half tablet every other day half an hour before Lasix in the morning. Bring all medicines to the office visit Exam - Constitutional Vitals: Period Temp Pulse Resp BP Sys/Da Silva Pulse Ox Last 24 Hr 96.9 F-98.8 F 72-88 17-20 130-190/65-98 95-98 Exam: Examination: GENERAL: NAD. HEENT: PERRLA. EOMI. NECK: Neck is supple. CVS: Regular rate and rhythm. S1 and S2 are normal. RESPIRATORY: Lungs are clear. ABDOMEN: Soft and nontender. EXT: No edema. 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 Discharge Results Procedures and tests throughout hospitalization: Pending Orders 03/03/17 04:00 Basic Metabolic Panel IN AM Prothrombin Time INR IN AM 03/04/17 04:00 Prothrombin Time INR IN AM 03/05/17 04:00 Prothrombin Time INR IN AM Labs on day of discharge: Labs from last 24 hours 03/02/17 03/02/17 03/02/17 06:55 05:45 05:45 WBC 5.9 RBC 4.24 Hgb 12.7 Hct 36.7 MCV 86.6 L MCH 30 MCHC 34.6 RDW 14.2 Plt Count 211 MPV 10.2 Neut % (Auto) 55.1 Lymph % (Auto) 29.3 [place] % (Auto) 11.4 Eos % (Auto) 2.9 Baso % (Auto) 0.5 Neut # (Auto) 3.3 Lymph # (Auto) 1.7 [place] # (Auto) 0.7 Eos # (Auto) 0.2 Baso # (Auto) 0.0 Immature Gran % 0.8 Nucleated RBC % 0.0 Immature Gran # 0.05 Nucleated RBCs # 0.00 Immature Plt Fraction 0.0 INR PT Patient/Control Mix Sodium 137 Potassium 3.9 Chloride 99 Carbon Dioxide 33 H Anion Gap 8.9 BUN 15 Creatinine 0.80 GFR Calculation 81 BUN/Creatinine Ratio 18.00 Glucose 63 L POC Glucose 68 L Calculated Osmolality 271.8 L Calcium 8.5 03/02/17 03/01/17 03/01/17 05:45 20:20 15:02 WBC RBC Hgb Hct MCV MCH MCHC RDW Plt Count MPV Neut % (Auto) Lymph % (Auto) [place] % (Auto) Eos % (Auto) Baso % (Auto) Neut # (Auto) Lymph # (Auto) [place] # (Auto) Eos # (Auto) Baso # (Auto) Immature Gran % Nucleated RBC % Immature Gran # Nucleated RBCs # Immature Plt Fraction INR 1.7 PT Patient/Control Mix 18.7 Sodium Potassium Chloride Carbon Dioxide Anion Gap BUN Creatinine GFR Calculation BUN/Creatinine Ratio Glucose POC Glucose 252 H 253 H Calculated Osmolality Calcium 03/01/17 11:48 WBC RBC Hgb Hct MCV MCH MCHC RDW Plt Count MPV Neut % (Auto) Lymph % (Auto) [place] % (Auto) Eos % (Auto) Baso % (Auto) Neut # (Auto) Lymph # (Auto) [place] # (Auto) Eos # (Auto) Baso # (Auto) Immature Gran % Nucleated RBC % Immature Gran # Nucleated RBCs # Immature Plt Fraction INR PT Patient/Control Mix Sodium Potassium Chloride Carbon Dioxide Anion Gap BUN Creatinine GFR Calculation BUN/Creatinine Ratio Glucose POC Glucose 131 H Calculated Osmolality Calcium DS: Provider Date of admission: 02/28/17 17:49 Primary care physician: . No PCP Attending physician on admission: Steven Coker MD Consults: 02/28/17 15:30 Consult to Case Mgmt/Social Srvs [CONS] Routine Reason for Case Mgmt/Social Srvs: Discharge Planning 02/28/17 18:16 Consult to Dietitian [CONS] Routine Reason for Dietitian: Dietary Consult Consult to Pastoral Services [CONS] Routine Comment: Pastoral Screen: Request Field Examiner Visit 03/01/17 08:16 Consult to Occupational Therapy [CONS] Routine Reason for Occupational Therapy: Evaluate and Treat Consult to Physical Therapy [CONS] Routine Reason for Physical Therapy: Evaluate and Treat Discharging clinician: Steven Coker MD
== END 2017-03-02 10:38 | disposition home or self-care (01) | DRG 641 ==
LOC: N.ED 12:27 → N.2E 17:20
PROVIDERS: ADMIT Internal Medicine; ATTEND Internal Medicine

== ENCOUNTER 2017-06-26 21:02 | Inpatient (IN) ==
[2017-06-26] MEDS ORDERED: FUROSEMIDE 40 MG/4 ML VIAL IV STA (22:44)
[2017-06-26] MEDS ORDERED: ALBUTEROL/IPRATROPIUM 3 ML NEB RESP TX STA (22:44)
[2017-06-26] MEDS ORDERED: VANCOMYCIN INJ 1,000 MG in SODIUM CHLORIDE 0.9% 250 ML IV STA (22:44)
[2017-06-26 23:02] LABS: Basophils % 0.2 % (0.0-0.8); Eosinophils % 0.2 % (0.00-10.9); Hematocrit 25.3 VOL% (35.7-47.0); Hemoglobin 8.3 GM/DL (12.0-16.0); Immature Granulocytes % 0.6 %; Immature Granulocytes Absolute 0.03 #; Lymphocytes # 0.7 10*3/uL (1.4-4.0); Lymphocytes % 15.4 % (21.3-54.2); Mean Corpuscular HGB Conc 32.8 GM/DL (32-36); Mean Corpuscular Hemoglobin 28 PG (27-34); Mean Corpuscular Volume 86.3 FL (87-102); Mean Platelet Volume 10.5 FL (9.6-12.0); Monocytes # 0.7 10*3/uL (0.11-0.8); Monocytes % 15.4 % (1.7-12.7); Neutrophils # 3.2 10*3/uL (1.4-7.4); Neutrophils % 68.2 % (38.7-73.9); Platelet Count 208 T/CUMM (130-400); Red Blood Count 2.93 MC/CUMM (3.8-5.5); Red Cell Distribution Width 14.7 % (9.3-17.3); White Blood Count 4.6 T/CUMM (4-12)
[2017-06-26 23:39] LABS: INR 3.2
[2017-06-26] MEDS ORDERED: VANCOMYCIN 1,000 MG VIAL ONE (23:39)
[2017-06-26] MEDS ORDERED: FUROSEMIDE 40 MG/4 ML VIAL ONE (23:39)
[2017-06-26 23:40] LABS: PT Patient Result 32.5 SECS; Partial Thromboplastin Time 48.3 SECS (0-40)
[2017-06-26 23:49] LABS: Alanine Aminotransferase 18 U/L (13-56); Alkaline Phosphatase 70 U/L (45-117); Aspartate Amino Transferase 26 U/L (0-37); Blood Urea Nitrogen 35 MG/DL (7-18); Calcium 7.8 MG/DL (8.5-10.1); Glucose 186 MG/DL (74-106); Osmolality,Calculated 280.2 MOS/KG (273-304); Potassium 3.2 MMOL/L (3.5-5.1); Sodium 134 MMOL/L (136-145); Total Protein 6.5 G/DL (6.4-8.3); Troponin I Only < 0.015 NG/ML (0.00-0.045)
[2017-06-26] MEDS ORDERED: POTASSIUM BICARB EFFERVESCENT 25 MEQ TABLET PO ONE (23:58)
[2017-06-27] MEDS ORDERED: ONDANSETRON 4 MG/2 ML VIAL IV PRN (00:38)
[2017-06-27] MEDS ORDERED: DEXTROSE 50% 25 GM/50 ML VIAL IV PRN (00:38)
[2017-06-27] MEDS ORDERED: GLUCAGON 1 MG VIAL IM PRN (00:38)
[2017-06-27] MEDS ORDERED: VANCOMYCIN INJ 1,250 MG in SODIUM CHLORIDE 0.45% 250 ML IV SCH (02:30)
[2017-06-27] MEDS: INSULIN REGULAR 100 UNIT/ML SUBCUT SCH ×4 (08:33→21:13)
[2017-06-27] MEDS ORDERED: ALBUTEROL 2.5 MG/3 ML NEB RESP TX PRN (08:34)
[2017-06-27] MEDS ORDERED: metOLazone 2.5 MG TABLET PO SCH (09:00)
[2017-06-27] MEDS ORDERED: LEVOFLOXACIN 500 MG TABLET PO SCH (09:00)
[2017-06-27 09:31] LABS: Basophils % 0.2 % (0.0-0.8); Eosinophils % 0.2 % (0.00-10.9); Hematocrit 24.8 VOL% (35.7-47.0); Immature Granulocytes % 0.7 %; Immature Granulocytes Absolute 0.03 #; Lymphocytes # 0.9 10*3/uL (1.4-4.0); Lymphocytes % 21.3 % (21.3-54.2); Mean Corpuscular HGB Conc 32.3 GM/DL (32-36); Mean Corpuscular Hemoglobin 28 PG (27-34); Mean Platelet Volume 10.5 FL (9.6-12.0); Monocytes # 0.6 10*3/uL (0.11-0.8); Monocytes % 13.8 % (1.7-12.7); Neutrophils # 2.7 10*3/uL (1.4-7.4); Neutrophils % 63.8 % (38.7-73.9); Platelet Count 198 T/CUMM (130-400); Red Blood Count 2.85 MC/CUMM (3.8-5.5); Red Cell Distribution Width 14.8 % (9.3-17.3); White Blood Count 4.3 T/CUMM (4-12)
[2017-06-27 09:41] LABS: PT Patient Result 30.5 SECS
[2017-06-27] MEDS: CARVEDILOL 25 MG TABLET PO SCH ×2 (09:49→21:11)
[2017-06-27] MEDS: MAGNESIUM OXIDE 400 MG TABLET PO SCH (09:49)
[2017-06-27] MEDS: GLIMEPIRIDE 4 MG TABLET PO SCH ×2 (09:49→17:31)
[2017-06-27] MEDS: OMEGA 3 ACID ETHYL ESTERS 1 GM CAPSULE PO SCH (09:49)
[2017-06-27] MEDS: ASPIRIN EC 81 MG TABLET PO SCH (09:49)
[2017-06-27] MEDS: MULTIVITAMIN (OCUVITE) TABLET PO SCH (09:49)
[2017-06-27] MEDS: POTASSIUM CHLORIDE 10 MEQ TABLET PO SCH ×4 (09:50→21:12)
[2017-06-27] MEDS: FUROSEMIDE 40 MG/4 ML VIAL IV SCH ×2 (09:50→17:30)
[2017-06-27] MEDS: LEVOFLOXACIN INJ 500 MG in PREMIX 1 EACH IV SCH (09:54)
[2017-06-27] MEDS: BUDESONIDE/FORMOTEROL 80-4.5 INHALER 6.9 GM INH SCH ×2 (10:01→21:13)
[2017-06-27 10:27] LABS: Calcium 7.5 MG/DL (8.5-10.1); Osmolality,Calculated 283.8 MOS/KG (273-304); Potassium 3.2 MMOL/L (3.5-5.1)
[2017-06-27] MEDS: ALBUTEROL/IPRATROPIUM 3 ML NEB RESP TX PRN (11:17)
[2017-06-27] MEDS ORDERED: SKIN HEALING OINT (AQUAPHOR) 50 GM TUBE TOP PRN (13:04)
[2017-06-27] MEDS ORDERED: CHLORHEXIDINE 4% SOLN 118 ML BOTTLE TOP ONE (13:04)
[2017-06-27] MEDS ORDERED: WARFARIN 5 MG TABLET PO SCH (18:00)
[2017-06-27] MEDS ORDERED: INSULIN GLARGINE 100 UNIT/ML SUBCUT SCH (21:00)
[2017-06-27] MEDS: ALLOPURINOL 100 MG TABLET PO SCH (21:12)
[2017-06-27] MEDS: GABAPENTIN 300 MG CAPSULE PO SCH (21:12)
[2017-06-27] MEDS: INSULIN GLARGINE 100 UNIT/ML SUBCUT SCH (21:13)
[2017-06-27] MEDS: VANCOMYCIN INJ 1,250 MG in SODIUM CHLORIDE 0.45% 250 ML IV SCH (22:27)
[2017-06-28 04:53] LABS: Basophils % 0.2 % (0.0-0.8); Eosinophils % 0.7 % (0.00-10.9); Hematocrit 23.5 VOL% (35.7-47.0); Hemoglobin 7.5 GM/DL (12.0-16.0); Immature Granulocytes % 0.2 %; Immature Granulocytes Absolute 0.01 #; Lymphocytes % 25.1 % (21.3-54.2); Mean Corpuscular HGB Conc 31.9 GM/DL (32-36); Mean Corpuscular Hemoglobin 28 PG (27-34); Mean Corpuscular Volume 86.1 FL (87-102); Mean Platelet Volume 10.5 FL (9.6-12.0); Monocytes # 0.7 10*3/uL (0.11-0.8); Monocytes % 17.2 % (1.7-12.7); Neutrophils # 2.3 10*3/uL (1.4-7.4); Neutrophils % 56.6 % (38.7-73.9); Platelet Count 177 T/CUMM (130-400); Red Blood Count 2.73 MC/CUMM (3.8-5.5); Red Cell Distribution Width 14.9 % (9.3-17.3); White Blood Count 4.1 T/CUMM (4-12)
[2017-06-28 05:18] LABS: Giant Platelets Few; Hypochromasia 1+; Lymphocytes 28 % (20-55); Ovalocytes Slight; Platelet Estimate Normal; Segmented Neutrophils 62 % (50-85); Total Cells Counted 100
[2017-06-28 05:24] LABS: INR 2.9
[2017-06-28 05:26] LABS: PT Patient Result 29.2 SECS
[2017-06-28 05:43] LABS: Calcium 7.9 MG/DL (8.5-10.1); Osmolality,Calculated 279.7 MOS/KG (273-304); Potassium 3.1 MMOL/L (3.5-5.1)
[2017-06-28] MEDS: ALBUTEROL/IPRATROPIUM 3 ML NEB RESP TX PRN (07:59)
[2017-06-28] MEDS ORDERED: SODIUM CHLORIDE 0.9% 1,000 ML IV PRN (08:52)
[2017-06-28] MEDS: GLIMEPIRIDE 4 MG TABLET PO SCH ×2 (09:42→16:27)
[2017-06-28] MEDS: INSULIN REGULAR 100 UNIT/ML SUBCUT SCH ×4 (09:42→21:14)
[2017-06-28] MEDS: MAGNESIUM OXIDE 400 MG TABLET PO SCH (09:43)
[2017-06-28] MEDS: MULTIVITAMIN (OCUVITE) TABLET PO SCH (09:43)
[2017-06-28] MEDS: POTASSIUM CHLORIDE 20 MEQ TABLET PO SCH ×2 (09:43→21:04)
[2017-06-28] MEDS: CARVEDILOL 25 MG TABLET PO SCH ×2 (09:43→21:04)
[2017-06-28] MEDS: metOLazone 2.5 MG TABLET PO SCH (09:43)
[2017-06-28] MEDS: BACITRACIN OINT 0.9 GM PACK TOP SCH (09:43)
[2017-06-28] MEDS: FUROSEMIDE 40 MG/4 ML VIAL IV SCH ×3 (09:44→18:06)
[2017-06-28] MEDS: BUDESONIDE/FORMOTEROL 80-4.5 INHALER 6.9 GM INH SCH ×2 (09:47→21:04)
[2017-06-28] MEDS: BENZONATATE 100 MG CAPSULE PO PRN (09:47)
[2017-06-28] MEDS: LEVOFLOXACIN INJ 500 MG in PREMIX 1 EACH IV SCH (09:49)
[2017-06-28] MEDS: OMEGA 3 ACID ETHYL ESTERS 1 GM CAPSULE PO SCH (09:54)
[2017-06-28] MEDS ORDERED: PHYTONADIONE 10 MG/1 ML AMP SUBCUT ONE (13:40)
[2017-06-28 20:06] LABS: Hemoglobin 10.1 GM/DL (12.0-16.0)
[2017-06-28] MEDS: ALLOPURINOL 100 MG TABLET PO SCH (21:04)
[2017-06-28] MEDS: GABAPENTIN 300 MG CAPSULE PO SCH (21:04)
[2017-06-28] MEDS: ACETAMINOPHEN 325 MG TABLET PO PRN (21:08)
[2017-06-28] MEDS: INSULIN GLARGINE 100 UNIT/ML SUBCUT SCH (21:14)
[2017-06-28] MEDS: VANCOMYCIN INJ 1,250 MG in SODIUM CHLORIDE 0.45% 250 ML IV SCH (22:52)
[2017-06-29 06:18] LABS: Basophils % 0.4 % (0.0-0.8); Eosinophils # 0.1 10*3/uL (0.0-0.87); Eosinophils % 1.9 % (0.00-10.9); Hematocrit 31.3 VOL% (35.7-47.0); Hemoglobin 10.1 GM/DL (12.0-16.0); Immature Granulocytes % 0.6 %; Immature Granulocytes Absolute 0.03 #; Lymphocytes # 1.4 10*3/uL (1.4-4.0); Lymphocytes % 28.5 % (21.3-54.2); Mean Corpuscular HGB Conc 32.3 GM/DL (32-36); Mean Corpuscular Hemoglobin 28 PG (27-34); Mean Corpuscular Volume 85.8 FL (87-102); Mean Platelet Volume 10.6 FL (9.6-12.0); Monocytes # 0.7 10*3/uL (0.11-0.8); Monocytes % 14.7 % (1.7-12.7); Neutrophils # 2.6 10*3/uL (1.4-7.4); Neutrophils % 53.9 % (38.7-73.9); Platelet Count 197 T/CUMM (130-400); Red Blood Count 3.65 MC/CUMM (3.8-5.5); Red Cell Distribution Width 14.6 % (9.3-17.3); White Blood Count 4.8 T/CUMM (4-12)
[2017-06-29 06:30] LABS: PT Patient Result 20.8 SECS
[2017-06-29 06:37] LABS: Calcium 7.9 MG/DL (8.5-10.1); Osmolality,Calculated 273.2 MOS/KG (273-304); Potassium 3.3 MMOL/L (3.5-5.1)
[2017-06-29 06:47] LABS: Band Neutrophils 1 % (0-10); Eosinophils 1 % (0-10); Lymphocytes 28 % (20-55); Nucleated Red Blood Cells 1 (0-5); Segmented Neutrophils 59 % (50-85); Total Cells Counted 100
[2017-06-29 06:48] LABS: Hypochromasia 2+; Microcytosis Slight; Ovalocytes Slight; Platelet Estimate Adequate
[2017-06-29] MEDS ORDERED: ceFAZolin 2,000 MG in PREMIX 1 EACH IV ONE (07:19)
[2017-06-29] MEDS: OMEGA 3 ACID ETHYL ESTERS 1 GM CAPSULE PO SCH (10:22)
[2017-06-29] MEDS: GLIMEPIRIDE 4 MG TABLET PO SCH ×2 (10:22→16:23)
[2017-06-29] MEDS: POTASSIUM CHLORIDE 20 MEQ TABLET PO SCH ×2 (10:23→22:26)
[2017-06-29] MEDS: CARVEDILOL 25 MG TABLET PO SCH ×2 (10:23→22:27)
[2017-06-29] MEDS: MULTIVITAMIN (OCUVITE) TABLET PO SCH (10:23)
[2017-06-29] MEDS: metOLazone 2.5 MG TABLET PO SCH (10:23)
[2017-06-29] MEDS: BACITRACIN OINT 0.9 GM PACK TOP SCH (10:23)
[2017-06-29] MEDS: MAGNESIUM OXIDE 400 MG TABLET PO SCH (10:23)
[2017-06-29] MEDS: ASPIRIN EC 81 MG TABLET PO SCH (10:23)
[2017-06-29] MEDS: FUROSEMIDE 40 MG/4 ML VIAL IV SCH ×2 (10:24→16:42)
[2017-06-29] MEDS: INSULIN REGULAR 100 UNIT/ML SUBCUT SCH ×4 (10:25→22:30)
[2017-06-29] MEDS: BUDESONIDE/FORMOTEROL 80-4.5 INHALER 6.9 GM INH SCH ×2 (10:25→22:26)
[2017-06-29] MEDS: LEVOFLOXACIN INJ 500 MG in PREMIX 1 EACH IV SCH (11:20)
[2017-06-29] MEDS: ALLOPURINOL 100 MG TABLET PO SCH (22:26)
[2017-06-29] MEDS: GABAPENTIN 300 MG CAPSULE PO SCH (22:27)
[2017-06-29] MEDS: INSULIN GLARGINE 100 UNIT/ML SUBCUT SCH (22:31)
[2017-06-29] MEDS: VANCOMYCIN INJ 1,250 MG in SODIUM CHLORIDE 0.45% 250 ML IV SCH (22:48)
[2017-06-30 07:02] LABS: Basophils % 0.2 % (0.0-0.8); Eosinophils # 0.1 10*3/uL (0.0-0.87); Eosinophils % 2.5 % (0.00-10.9); Hematocrit 31.7 VOL% (35.7-47.0); Hemoglobin 10.4 GM/DL (12.0-16.0); Immature Granulocytes % 0.7 %; Immature Granulocytes Absolute 0.03 #; Lymphocytes # 1.1 10*3/uL (1.4-4.0); Lymphocytes % 25.2 % (21.3-54.2); Mean Corpuscular HGB Conc 32.8 GM/DL (32-36); Mean Corpuscular Hemoglobin 28 PG (27-34); Mean Corpuscular Volume 85.2 FL (87-102); Mean Platelet Volume 10.2 FL (9.6-12.0); Monocytes # 0.5 10*3/uL (0.11-0.8); Monocytes % 12.1 % (1.7-12.7); Neutrophils # 2.6 10*3/uL (1.4-7.4); Neutrophils % 59.3 % (38.7-73.9); Platelet Count 195 T/CUMM (130-400); Red Blood Count 3.72 MC/CUMM (3.8-5.5); Red Cell Distribution Width 14.5 % (9.3-17.3); White Blood Count 4.4 T/CUMM (4-12)
[2017-06-30 07:03] LABS: INR 1.4; PT Patient Result 14.4 SECS
[2017-06-30] MEDS ORDERED: ceFAZolin 2,000 MG in PREMIX 1 EACH IV ONE (07:17)
[2017-06-30 07:31] LABS: Calcium 8.2 MG/DL (8.5-10.1); Osmolality,Calculated 270.4 MOS/KG (273-304); Potassium 3.1 MMOL/L (3.5-5.1)
[2017-06-30] MEDS: ALBUTEROL/IPRATROPIUM 3 ML NEB RESP TX PRN ×2 (07:53→14:02)
[2017-06-30] MEDS ORDERED: POTASSIUM CHLORIDE RIDER 10 MEQ in PREMIX 1 EACH IV PRN (08:07)
[2017-06-30] MEDS ORDERED: LACTATED RINGERS 1,000 ML IV SCH (08:30)
[2017-06-30] MEDS ORDERED: GLUCAGON 1 MG VIAL IM PRN (11:22)
[2017-06-30] MEDS ORDERED: DEXTROSE 50% 25 GM/50 ML VIAL IV PRN (11:22)
[2017-06-30] MEDS ORDERED: fentaNYL 100 MCG/2 ML VIAL ONE (11:52)
[2017-06-30] MEDS ORDERED: SEVOFLURANE 1 UNIT/15 MINUTE INH ONE (11:52)
[2017-06-30] MEDS ORDERED: PROPOFOL 200 MG/20 ML VIAL IV ONE (11:52)
[2017-06-30] MEDS ORDERED: ACETAMINOPHEN 1,000 MG/100 ML VIAL IV ONE (11:53)
[2017-06-30] MEDS ORDERED: MIDAZOLAM 2 MG/2 ML VIAL ONE (11:53)
[2017-06-30] MEDS ORDERED: ONDANSETRON 4 MG/2 ML VIAL ONE (11:53)
[2017-06-30] MEDS: CARVEDILOL 25 MG TABLET PO SCH ×2 (14:09→21:24)
[2017-06-30] MEDS: GLIMEPIRIDE 4 MG TABLET PO SCH ×2 (14:09→17:52)
[2017-06-30] MEDS: POTASSIUM CHLORIDE 20 MEQ TABLET PO SCH ×2 (14:09→21:24)
[2017-06-30] MEDS: OMEGA 3 ACID ETHYL ESTERS 1 GM CAPSULE PO SCH (14:09)
[2017-06-30] MEDS: INSULIN REGULAR 100 UNIT/ML SUBCUT SCH ×3 (14:09→21:23)
[2017-06-30] MEDS: MULTIVITAMIN (OCUVITE) TABLET PO SCH (14:10)
[2017-06-30] MEDS: BUDESONIDE/FORMOTEROL 80-4.5 INHALER 6.9 GM INH SCH ×2 (14:10→21:25)
[2017-06-30] MEDS: MAGNESIUM OXIDE 400 MG TABLET PO SCH (14:10)
[2017-06-30] MEDS: metOLazone 2.5 MG TABLET PO SCH (14:45)
[2017-06-30] MEDS: FUROSEMIDE 40 MG/4 ML VIAL IV SCH ×2 (15:15→21:26)
[2017-06-30] MEDS: LEVOFLOXACIN INJ 500 MG in PREMIX 1 EACH IV SCH (17:31)
[2017-06-30] MEDS: BACITRACIN OINT 0.9 GM PACK TOP SCH (17:49)
[2017-06-30] MEDS: POTASSIUM CHLORIDE 20 MEQ TABLET PO PRN ×2 (19:15→23:43)
[2017-06-30] MEDS: GABAPENTIN 300 MG CAPSULE PO SCH (21:24)
[2017-06-30] MEDS: INSULIN GLARGINE 100 UNIT/ML SUBCUT SCH (21:25)
[2017-06-30] MEDS: ALLOPURINOL 100 MG TABLET PO SCH (21:25)
[2017-06-30] MEDS: VANCOMYCIN INJ 1,250 MG in SODIUM CHLORIDE 0.45% 250 ML IV SCH (21:34)
[2017-06-30] MEDS: ACETAMINOPHEN 325 MG TABLET PO PRN (23:43)
[2017-07-01] MEDS: POTASSIUM CHLORIDE 20 MEQ TABLET PO PRN ×2 (02:57→07:05)
[2017-07-01 06:02] LABS: Basophils % 0.3 % (0.0-0.8); Eosinophils # 0.2 10*3/uL (0.0-0.87); Eosinophils % 2.6 % (0.00-10.9); Hematocrit 28.8 VOL% (35.7-47.0); Hemoglobin 9.4 GM/DL (12.0-16.0); Immature Granulocytes % 0.7 %; Immature Granulocytes Absolute 0.04 #; Lymphocytes % 16.9 % (21.3-54.2); Mean Corpuscular HGB Conc 32.6 GM/DL (32-36); Mean Corpuscular Hemoglobin 28 PG (27-34); Mean Corpuscular Volume 85.7 FL (87-102); Mean Platelet Volume 10.4 FL (9.6-12.0); Monocytes # 0.6 10*3/uL (0.11-0.8); Monocytes % 9.7 % (1.7-12.7); Neutrophils # 4.1 10*3/uL (1.4-7.4); Neutrophils % 69.8 % (38.7-73.9); Platelet Count 200 T/CUMM (130-400); Red Blood Count 3.36 MC/CUMM (3.8-5.5); Red Cell Distribution Width 14.5 % (9.3-17.3); White Blood Count 5.9 T/CUMM (4-12)
[2017-07-01 06:14] LABS: INR 1.2; PT Patient Result 12.8 SECS
[2017-07-01 06:32] LABS: Albumin 2.4 G/DL (3.4-5.0); Bilirubin,Total 0.6 MG/DL (0.2-1.0); Calcium 7.6 MG/DL (8.5-10.1); Osmolality,Calculated 267.9 MOS/KG (273-304); Potassium 3.9 MMOL/L (3.5-5.1); Total Protein 5.8 G/DL (6.4-8.3)
[2017-07-01] MEDS: INSULIN REGULAR 100 UNIT/ML SUBCUT SCH ×4 (09:55→21:36)
[2017-07-01] MEDS: FUROSEMIDE 40 MG/4 ML VIAL IV SCH ×2 (09:58→16:06)
[2017-07-01] MEDS: LEVOFLOXACIN INJ 500 MG in PREMIX 1 EACH IV SCH (10:02)
[2017-07-01] MEDS: MULTIVITAMIN (OCUVITE) TABLET PO SCH (10:03)
[2017-07-01] MEDS: metOLazone 2.5 MG TABLET PO SCH (10:03)
[2017-07-01] MEDS: MAGNESIUM OXIDE 400 MG TABLET PO SCH (10:03)
[2017-07-01] MEDS: OMEGA 3 ACID ETHYL ESTERS 1 GM CAPSULE PO SCH (10:04)
[2017-07-01] MEDS: POTASSIUM CHLORIDE 20 MEQ TABLET PO SCH ×2 (10:04→21:39)
[2017-07-01] MEDS: GLIMEPIRIDE 4 MG TABLET PO SCH ×2 (10:04→16:55)
[2017-07-01] MEDS: CARVEDILOL 25 MG TABLET PO SCH ×2 (10:04→21:40)
[2017-07-01] MEDS: ASPIRIN EC 81 MG TABLET PO SCH (10:04)
[2017-07-01] MEDS: BUDESONIDE/FORMOTEROL 80-4.5 INHALER 6.9 GM INH SCH ×2 (10:05→21:42)
[2017-07-01] MEDS: BACITRACIN OINT 0.9 GM PACK TOP SCH (10:05)
[2017-07-01] MEDS: traMADol 50 MG TABLET PO PRN ×2 (13:27→21:40)
[2017-07-01] MEDS: FUROSEMIDE 40 MG TABLET PO SCH (16:55)
[2017-07-01] MEDS: INSULIN GLARGINE 100 UNIT/ML SUBCUT SCH (21:39)
[2017-07-01] MEDS: GABAPENTIN 300 MG CAPSULE PO SCH (21:40)
[2017-07-01] MEDS: ALLOPURINOL 100 MG TABLET PO SCH (21:40)
[2017-07-01] MEDS: VANCOMYCIN INJ 1,250 MG in SODIUM CHLORIDE 0.45% 250 ML IV SCH (21:41)
[2017-07-02 04:33] LABS: Basophils % 0.3 % (0.0-0.8); Eosinophils # 0.3 10*3/uL (0.0-0.87); Eosinophils % 4.6 % (0.00-10.9); Hematocrit 31.2 VOL% (35.7-47.0); Hemoglobin 10.1 GM/DL (12.0-16.0); Immature Granulocytes % 1.3 %; Immature Granulocytes Absolute 0.08 #; Lymphocytes # 1.7 10*3/uL (1.4-4.0); Mean Corpuscular HGB Conc 32.4 GM/DL (32-36); Mean Corpuscular Hemoglobin 28 PG (27-34); Mean Platelet Volume 10.1 FL (9.6-12.0); Monocytes # 0.6 10*3/uL (0.11-0.8); Monocytes % 9.1 % (1.7-12.7); Neutrophils # 3.4 10*3/uL (1.4-7.4); Neutrophils % 56.7 % (38.7-73.9); Platelet Count 218 T/CUMM (130-400); Red Blood Count 3.67 MC/CUMM (3.8-5.5); Red Cell Distribution Width 14.4 % (9.3-17.3); White Blood Count 6.1 T/CUMM (4-12)
[2017-07-02 04:52] LABS: INR 1.1
[2017-07-02 05:19] LABS: Osmolality,Calculated 269.5 MOS/KG (273-304); Potassium 3.4 MMOL/L (3.5-5.1)
[2017-07-02] MEDS: POTASSIUM CHLORIDE 20 MEQ TABLET PO PRN ×3 (06:23→15:22)
[2017-07-02 07:38] LABS: Hypochromasia 1+; Lymphocytes 13 % (20-55); Segmented Neutrophils 77 % (50-85); Total Cells Counted 100
[2017-07-02 07:39] LABS: Platelet Estimate Adequate
[2017-07-02] MEDS: INSULIN REGULAR 100 UNIT/ML SUBCUT SCH ×4 (07:56→21:40)
[2017-07-02] MEDS: MULTIVITAMIN (OCUVITE) TABLET PO SCH (08:42)
[2017-07-02] MEDS: GLIMEPIRIDE 4 MG TABLET PO SCH ×2 (08:43→17:03)
[2017-07-02] MEDS: CARVEDILOL 25 MG TABLET PO SCH ×2 (08:43→21:22)
[2017-07-02] MEDS: OMEGA 3 ACID ETHYL ESTERS 1 GM CAPSULE PO SCH (08:43)
[2017-07-02] MEDS: MAGNESIUM OXIDE 400 MG TABLET PO SCH (08:43)
[2017-07-02] MEDS: POTASSIUM CHLORIDE 20 MEQ TABLET PO SCH ×2 (08:43→21:22)
[2017-07-02] MEDS: FUROSEMIDE 40 MG TABLET PO SCH ×2 (08:43→15:21)
[2017-07-02] MEDS: metOLazone 2.5 MG TABLET PO SCH (08:43)
[2017-07-02] MEDS: LEVOFLOXACIN INJ 500 MG in PREMIX 1 EACH IV SCH (08:46)
[2017-07-02] MEDS: BUDESONIDE/FORMOTEROL 80-4.5 INHALER 6.9 GM INH SCH ×2 (08:46→21:23)
[2017-07-02] MEDS: MAGNESIUM HYDROXIDE SUSP 30 ML UDCUP PO PRN ×2 (11:57→18:36)
[2017-07-02] MEDS: BACITRACIN OINT 0.9 GM PACK TOP SCH (14:29)
[2017-07-02] MEDS: BENZONATATE 100 MG CAPSULE PO PRN (15:22)
[2017-07-02] MEDS: WARFARIN 5 MG TABLET PO SCH (17:03)
[2017-07-02] MEDS: ALLOPURINOL 100 MG TABLET PO SCH (21:22)
[2017-07-02] MEDS: INSULIN GLARGINE 100 UNIT/ML SUBCUT SCH (21:22)
[2017-07-02] MEDS: GABAPENTIN 300 MG CAPSULE PO SCH (21:22)
[2017-07-02] MEDS: traMADol 50 MG TABLET PO PRN (21:23)
[2017-07-02] MEDS: VANCOMYCIN INJ 1,250 MG in SODIUM CHLORIDE 0.45% 250 ML IV SCH (21:24)
[2017-07-03] MEDS: BENZONATATE 100 MG CAPSULE PO PRN ×3 (01:53→21:25)
[2017-07-03 06:05] LABS: INR 1.1; PT Patient Result 11.5 SECS
[2017-07-03 06:18] LABS: Basophils % 0.5 % (0.0-0.8); Eosinophils # 0.3 10*3/uL (0.0-0.87); Eosinophils % 4.4 % (0.00-10.9); Hematocrit 29.9 VOL% (35.7-47.0); Hemoglobin 9.7 GM/DL (12.0-16.0); Immature Granulocytes % 1.3 %; Immature Granulocytes Absolute 0.08 #; Lymphocytes # 1.5 10*3/uL (1.4-4.0); Lymphocytes % 24.7 % (21.3-54.2); Mean Corpuscular HGB Conc 32.4 GM/DL (32-36); Mean Corpuscular Hemoglobin 28 PG (27-34); Mean Corpuscular Volume 84.7 FL (87-102); Mean Platelet Volume 10.2 FL (9.6-12.0); Monocytes # 0.6 10*3/uL (0.11-0.8); Monocytes % 9.7 % (1.7-12.7); Neutrophils # 3.7 10*3/uL (1.4-7.4); Neutrophils % 59.4 % (38.7-73.9); Platelet Count 249 T/CUMM (130-400); Red Blood Count 3.53 MC/CUMM (3.8-5.5); Red Cell Distribution Width 14.5 % (9.3-17.3); White Blood Count 6.2 T/CUMM (4-12)
[2017-07-03 06:19] LABS: Calcium 8.4 MG/DL (8.5-10.1); Osmolality,Calculated 263.7 MOS/KG (273-304); Potassium 3.7 MMOL/L (3.5-5.1)
[2017-07-03] MEDS: INSULIN REGULAR 100 UNIT/ML SUBCUT SCH ×4 (08:10→21:26)
[2017-07-03] MEDS: MULTIVITAMIN (OCUVITE) TABLET PO SCH (09:03)
[2017-07-03] MEDS: FUROSEMIDE 40 MG TABLET PO SCH ×2 (09:03→15:21)
[2017-07-03] MEDS: ASPIRIN EC 81 MG TABLET PO SCH (09:04)
[2017-07-03] MEDS: CARVEDILOL 25 MG TABLET PO SCH ×2 (09:04→21:25)
[2017-07-03] MEDS: MAGNESIUM OXIDE 400 MG TABLET PO SCH (09:04)
[2017-07-03] MEDS: OMEGA 3 ACID ETHYL ESTERS 1 GM CAPSULE PO SCH (09:04)
[2017-07-03] MEDS: metOLazone 2.5 MG TABLET PO SCH (09:04)
[2017-07-03] MEDS: POTASSIUM CHLORIDE 20 MEQ TABLET PO SCH ×2 (09:06→21:25)
[2017-07-03] MEDS: BUDESONIDE/FORMOTEROL 80-4.5 INHALER 6.9 GM INH SCH ×2 (09:07→21:26)
[2017-07-03] MEDS: LEVOFLOXACIN INJ 500 MG in PREMIX 1 EACH IV SCH (09:08)
[2017-07-03] MEDS: GLIMEPIRIDE 4 MG TABLET PO SCH ×2 (09:09→17:14)
[2017-07-03] MEDS: BACITRACIN OINT 0.9 GM PACK TOP SCH (13:05)
[2017-07-03] MEDS: traMADol 50 MG TABLET PO PRN (15:20)
[2017-07-03] MEDS: WARFARIN 5 MG TABLET PO SCH (17:14)
[2017-07-03] MEDS: WARFARIN 5 MG TABLET PO ONE ×2 (17:16→17:23)
[2017-07-03] MEDS: GABAPENTIN 300 MG CAPSULE PO SCH (21:24)
[2017-07-03] MEDS: INSULIN GLARGINE 100 UNIT/ML SUBCUT SCH (21:24)
[2017-07-03] MEDS: ALLOPURINOL 100 MG TABLET PO SCH (21:25)
[2017-07-04 05:38] LABS: Basophils % 0.4 % (0.0-0.8); Eosinophils # 0.3 10*3/uL (0.0-0.87); Eosinophils % 3.9 % (0.00-10.9); Hematocrit 30.6 VOL% (35.7-47.0); Immature Granulocytes Absolute 0.14 #; Lymphocytes # 1.5 10*3/uL (1.4-4.0); Lymphocytes % 22.3 % (21.3-54.2); Mean Corpuscular HGB Conc 32.7 GM/DL (32-36); Mean Corpuscular Hemoglobin 28 PG (27-34); Mean Corpuscular Volume 85.2 FL (87-102); Mean Platelet Volume 10.2 FL (9.6-12.0); Monocytes # 0.7 10*3/uL (0.11-0.8); Monocytes % 10.5 % (1.7-12.7); Neutrophils # 4.2 10*3/uL (1.4-7.4); Neutrophils % 60.9 % (38.7-73.9); Platelet Count 250 T/CUMM (130-400); Red Blood Count 3.59 MC/CUMM (3.8-5.5); Red Cell Distribution Width 14.6 % (9.3-17.3); White Blood Count 6.9 T/CUMM (4-12)
[2017-07-04 05:47] LABS: INR 1.1; PT Patient Result 11.4 SECS
[2017-07-04 06:13] LABS: Calcium 8.3 MG/DL (8.5-10.1); Magnesium 2.6 MG/DL (1.8-2.4); Osmolality,Calculated 275.2 MOS/KG (273-304); Potassium 3.2 MMOL/L (3.5-5.1)
[2017-07-04] MEDS: POTASSIUM CHLORIDE 20 MEQ TABLET PO PRN (06:18)
[2017-07-04 07:00] LABS: Calcium 8.5 MG/DL (8.5-10.1); Osmolality,Calculated 273.4 MOS/KG (273-304); Potassium 3.2 MMOL/L (3.5-5.1)
[2017-07-04] MEDS: methylPREDNISolone SOD SUC 40 MG/1 ML VIAL IV SCH ×2 (10:20→18:07)
[2017-07-04] MEDS: OMEGA 3 ACID ETHYL ESTERS 1 GM CAPSULE PO SCH (10:20)
[2017-07-04] MEDS: MULTIVITAMIN (OCUVITE) TABLET PO SCH (10:21)
[2017-07-04] MEDS: MAGNESIUM OXIDE 400 MG TABLET PO SCH (10:21)
[2017-07-04] MEDS: FUROSEMIDE 40 MG TABLET PO SCH ×2 (10:21→18:08)
[2017-07-04] MEDS: BACITRACIN OINT 0.9 GM PACK TOP SCH (10:21)
[2017-07-04] MEDS: metOLazone 2.5 MG TABLET PO SCH (10:21)
[2017-07-04] MEDS: POTASSIUM CHLORIDE 20 MEQ TABLET PO SCH ×4 (10:21→21:56)
[2017-07-04] MEDS: INSULIN REGULAR 100 UNIT/ML SUBCUT SCH ×4 (10:22→21:56)
[2017-07-04] MEDS: CARVEDILOL 25 MG TABLET PO SCH ×2 (10:22→21:55)
[2017-07-04] MEDS: GLIMEPIRIDE 4 MG TABLET PO SCH ×2 (10:22→18:08)
[2017-07-04] MEDS: LEVOFLOXACIN INJ 500 MG in PREMIX 1 EACH IV SCH (10:22)
[2017-07-04] MEDS: BUDESONIDE/FORMOTEROL 80-4.5 INHALER 6.9 GM INH SCH ×2 (10:22→21:56)
[2017-07-04] MEDS: ALBUTEROL/IPRATROPIUM 3 ML NEB RESP TX SCH ×2 (13:24→21:18)
[2017-07-04] MEDS ORDERED: WARFARIN 7.5 MG TABLET PO SCH (18:00)
[2017-07-04] MEDS: GABAPENTIN 300 MG CAPSULE PO SCH (21:55)
[2017-07-04] MEDS: INSULIN GLARGINE 100 UNIT/ML SUBCUT SCH (21:55)
[2017-07-04] MEDS: ALLOPURINOL 100 MG TABLET PO SCH (21:55)
[2017-07-04] MEDS: ACETAMINOPHEN 325 MG TABLET PO PRN (22:06)
[2017-07-05] MEDS: ALBUTEROL/IPRATROPIUM 3 ML NEB RESP TX SCH ×2 (02:23→08:57)
[2017-07-05] MEDS: methylPREDNISolone SOD SUC 40 MG/1 ML VIAL IV SCH (02:45)
[2017-07-05 04:47] LABS: Basophils % 0.2 % (0.0-0.8); Hematocrit 30.2 VOL% (35.7-47.0); Hemoglobin 10.1 GM/DL (12.0-16.0); Immature Granulocytes % 1.1 %; Immature Granulocytes Absolute 0.07 #; Lymphocytes # 0.9 10*3/uL (1.4-4.0); Lymphocytes % 14.8 % (21.3-54.2); Mean Corpuscular HGB Conc 33.4 GM/DL (32-36); Mean Corpuscular Hemoglobin 28 PG (27-34); Mean Corpuscular Volume 83.9 FL (87-102); Mean Platelet Volume 10.1 FL (9.6-12.0); Monocytes # 0.2 10*3/uL (0.11-0.8); Neutrophils % 80.9 % (38.7-73.9); Platelet Count 273 T/CUMM (130-400); Red Cell Distribution Width 14.5 % (9.3-17.3); White Blood Count 6.2 T/CUMM (4-12)
[2017-07-05 04:50] LABS: INR 1.2; PT Patient Result 12.3 SECS
[2017-07-05 05:15] LABS: Calcium 8.4 MG/DL (8.5-10.1); Osmolality,Calculated 279.5 MOS/KG (273-304); Potassium 3.7 MMOL/L (3.5-5.1)
[2017-07-05] MEDS: LEVOFLOXACIN INJ 500 MG in PREMIX 1 EACH IV SCH (10:05)
[2017-07-05] MEDS: GLIMEPIRIDE 4 MG TABLET PO SCH (10:06)
[2017-07-05] MEDS: FUROSEMIDE 40 MG TABLET PO SCH (10:06)
[2017-07-05] MEDS: BACITRACIN OINT 0.9 GM PACK TOP SCH (10:06)
[2017-07-05] MEDS: CARVEDILOL 25 MG TABLET PO SCH (10:06)
[2017-07-05] MEDS: metOLazone 2.5 MG TABLET PO SCH (10:07)
[2017-07-05] MEDS: MAGNESIUM OXIDE 400 MG TABLET PO SCH (10:07)
[2017-07-05] MEDS: OMEGA 3 ACID ETHYL ESTERS 1 GM CAPSULE PO SCH (10:07)
[2017-07-05] MEDS: POTASSIUM CHLORIDE 20 MEQ TABLET PO SCH (10:07)
[2017-07-05] MEDS: ASPIRIN EC 81 MG TABLET PO SCH (10:07)
[2017-07-05] MEDS: MULTIVITAMIN (OCUVITE) TABLET PO SCH (10:07)
[2017-07-05] MEDS: INSULIN REGULAR 100 UNIT/ML SUBCUT SCH (10:07)
[2017-07-05] MEDS: BUDESONIDE/FORMOTEROL 80-4.5 INHALER 6.9 GM INH SCH (10:08)
[2017-07-05 11:59] VITALS: BP 129/65
== END 2017-07-05 13:12 | disposition home health service (06) | DRG 602 ==
LOC: N.ED 21:02 → N.EDINP 06-27 00:37 → N.TELES 06-27 00:52
PROVIDERS: ADMIT Internal Medicine; ATTEND Internal Medicine

== ENCOUNTER 2017-10-17 13:08 | Inpatient (IN) ==
[2017-10-17] MEDS ORDERED: DEXTROSE 50% 25 GM/50 ML VIAL IV PRN (13:15)
[2017-10-17] MEDS ORDERED: ACETAMINOPHEN 325 MG TABLET PO PRN (13:15)
[2017-10-17] MEDS ORDERED: ONDANSETRON 4 MG/2 ML VIAL IV PRN (13:15)
[2017-10-17] MEDS ORDERED: GLUCAGON 1 MG VIAL IM PRN (13:15)
[2017-10-17] MEDS ORDERED: ALBUTEROL/IPRATROPIUM 3 ML NEB RESP TX PRN (13:18)
[2017-10-17] MEDS: BENZONATATE 100 MG CAPSULE PO SCH ×2 (15:34→20:11)
[2017-10-17] MEDS: methylPREDNISolone SOD SUC 40 MG/1 ML VIAL IV SCH ×3 (15:34→21:07)
[2017-10-17] MEDS: LEVOFLOXACIN INJ 500 MG in PREMIX 1 EACH IV SCH (15:35)
[2017-10-17] MEDS: ALBUTEROL/IPRATROPIUM 3 ML NEB RESP TX SCH (19:14)
[2017-10-17] MEDS ORDERED: SKIN HEALING OINT (AQUAPHOR) 50 GM TUBE TOP PRN (19:18)
[2017-10-17] MEDS ORDERED: ALBUTEROL 2.5 MG/3 ML NEB RESP TX PRN (19:18)
[2017-10-17] MEDS ORDERED: metOLazone 2.5 MG TABLET PO SCH (19:30)
[2017-10-17] MEDS: DOCUSATE SODIUM 100 MG CAPSULE PO SCH (20:10)
[2017-10-17] MEDS: POTASSIUM CHLORIDE 20 MEQ TABLET PO SCH (20:10)
[2017-10-17] MEDS: FUROSEMIDE 40 MG TABLET PO SCH (20:11)
[2017-10-17] MEDS: CARVEDILOL 12.5 MG TABLET PO SCH (20:11)
[2017-10-17] MEDS: GLIMEPIRIDE 4 MG TABLET PO SCH (20:17)
[2017-10-17] MEDS: BUDESONIDE/FORMOTEROL 80-4.5 INHALER 6.9 GM INH SCH (20:17)
[2017-10-17] MEDS: GABAPENTIN 300 MG CAPSULE PO SCH (20:17)
[2017-10-17 20:44] LABS: Apearance,Urine CLEAR (Clear); Bilirubin,Urine Negative (Negative); Blood, Urine Negative (Negative); Glucose,Urine (UA) Negative (Negative); Hyaline Casts,Urine 4 /LPF (0-3); Ketones,Urine Negative (Negative); Nitrite,Urine Negative (Negative); Protein,Urine 100 MG/DL; Squamous Epithelial Cell,Urine Occasional /HPF (0-10); Urine Color Yellow (Yellow); Urine Specific Gravity 1.012 (1.001-1.035); Urine Urobilinogen < 2.0 EU/DL (0.2-1.0)
[2017-10-17] MEDS: traMADol 50 MG TABLET PO SCH (23:00)
[2017-10-18] MEDS: ALBUTEROL/IPRATROPIUM 3 ML NEB RESP TX SCH ×4 (00:38→19:56)
[2017-10-18] MEDS: cloNIDine 0.1 MG TABLET PO PRN ×3 (03:52→22:43)
[2017-10-18] MEDS: traMADol 50 MG TABLET PO SCH ×4 (05:06→23:44)
[2017-10-18] MEDS: methylPREDNISolone SOD SUC 40 MG/1 ML VIAL IV SCH ×3 (05:06→21:40)
[2017-10-18 05:47] LABS: Basophils % 0.6 % (0.0-0.8); Hemoglobin 11.5 GM/DL (12.0-16.0); Immature Granulocytes % 0.6 %; Immature Granulocytes Absolute 0.01 #; Lymphocytes # 0.5 10*3/uL (1.4-4.0); Lymphocytes % 25.7 % (21.3-54.2); Mean Corpuscular HGB Conc 32.9 GM/DL (32-36); Mean Corpuscular Hemoglobin 29 PG (27-34); Mean Corpuscular Volume 88.6 FL (87-102); Mean Platelet Volume 10.4 FL (9.6-12.0); Monocytes # 0.1 10*3/uL (0.11-0.8); Monocytes % 5.1 % (1.7-12.7); Neutrophils # 1.2 10*3/uL (1.4-7.4); Platelet Count 118 T/CUMM (130-400); Red Blood Count 3.95 MC/CUMM (3.8-5.5); Red Cell Distribution Width 16.6 % (9.3-17.3); White Blood Count 1.8 T/CUMM (4-12)
[2017-10-18 06:10] LABS: INR 2.9
[2017-10-18 06:12] LABS: PT Patient Result 29.3 SECS
[2017-10-18 06:15] LABS: Calcium 8.3 MG/DL (8.5-10.1); Osmolality,Calculated 284.8 MOS/KG (273-304); Potassium 3.6 MMOL/L (3.5-5.1)
[2017-10-18 06:18] LABS: Hypochromasia 2+; Microcytosis 2+
[2017-10-18] MEDS: POTASSIUM CHLORIDE 20 MEQ TABLET PO SCH ×2 (08:50→20:36)
[2017-10-18] MEDS: DOCUSATE SODIUM 100 MG CAPSULE PO SCH ×2 (08:51→20:37)
[2017-10-18] MEDS: BENZONATATE 100 MG CAPSULE PO SCH ×3 (08:51→20:37)
[2017-10-18] MEDS: PANTOPRAZOLE 40 MG TABLET PO SCH (08:51)
[2017-10-18] MEDS: ALLOPURINOL 100 MG TABLET PO SCH (08:51)
[2017-10-18] MEDS: MULTIVITAMIN (OCUVITE) TABLET PO SCH (08:51)
[2017-10-18] MEDS: OMEGA 3 ACID ETHYL ESTERS 1 GM CAPSULE PO SCH (08:51)
[2017-10-18] MEDS: FUROSEMIDE 40 MG TABLET PO SCH ×2 (08:51→20:36)
[2017-10-18] MEDS: CARVEDILOL 12.5 MG TABLET PO SCH ×2 (08:51→16:29)
[2017-10-18] MEDS: GLIMEPIRIDE 4 MG TABLET PO SCH ×2 (08:51→20:36)
[2017-10-18] MEDS: BUDESONIDE/FORMOTEROL 80-4.5 INHALER 6.9 GM INH SCH ×2 (08:53→20:45)
[2017-10-18] MEDS ORDERED: INSULIN GLARGINE 100 UNIT/ML SUBCUT SCH (09:00)
[2017-10-18] MEDS ORDERED: metOLazone 2.5 MG TABLET PO ONE (10:00)
[2017-10-18] MEDS: LEVOFLOXACIN INJ 500 MG in PREMIX 1 EACH IV SCH (15:02)
[2017-10-18] MEDS ORDERED: WARFARIN 2.5 MG TABLET PO ONE (18:00)
[2017-10-18] MEDS: GABAPENTIN 300 MG CAPSULE PO SCH (20:36)
[2017-10-18] MEDS: INSULIN GLARGINE 100 UNIT/ML SUBCUT SCH (20:37)
[2017-10-19] MEDS: ALBUTEROL/IPRATROPIUM 3 ML NEB RESP TX SCH ×4 (00:20→19:21)
[2017-10-19] MEDS: cloNIDine 0.1 MG TABLET PO PRN ×2 (04:58→17:03)
[2017-10-19] MEDS: methylPREDNISolone SOD SUC 40 MG/1 ML VIAL IV SCH ×3 (05:58→22:10)
[2017-10-19] MEDS: traMADol 50 MG TABLET PO SCH ×3 (05:58→17:04)
[2017-10-19 06:34] LABS: INR 2.5
[2017-10-19 06:40] LABS: PT Patient Result 25.7 SECS
[2017-10-19] MEDS ORDERED: hydroCHLOROthiazide 25 MG TABLET PO PRN (08:26)
[2017-10-19] MEDS: OMEGA 3 ACID ETHYL ESTERS 1 GM CAPSULE PO SCH (08:49)
[2017-10-19] MEDS: ALLOPURINOL 100 MG TABLET PO SCH (08:49)
[2017-10-19] MEDS: MULTIVITAMIN (OCUVITE) TABLET PO SCH (08:49)
[2017-10-19] MEDS: POTASSIUM CHLORIDE 20 MEQ TABLET PO SCH ×2 (08:49→22:09)
[2017-10-19] MEDS: FUROSEMIDE 40 MG TABLET PO SCH ×2 (08:49→22:10)
[2017-10-19] MEDS: CARVEDILOL 12.5 MG TABLET PO SCH ×2 (08:50→17:03)
[2017-10-19] MEDS: GLIMEPIRIDE 4 MG TABLET PO SCH ×2 (08:50→22:09)
[2017-10-19] MEDS: BENZONATATE 100 MG CAPSULE PO SCH ×4 (08:50→22:10)
[2017-10-19] MEDS: PANTOPRAZOLE 40 MG TABLET PO SCH (08:50)
[2017-10-19] MEDS: BUDESONIDE/FORMOTEROL 80-4.5 INHALER 6.9 GM INH SCH ×2 (08:50→22:10)
[2017-10-19] MEDS: DOCUSATE SODIUM 100 MG CAPSULE PO SCH ×2 (08:50→22:09)
[2017-10-19 08:58] LABS: Calcium 8.8 MG/DL (8.5-10.1); Osmolality,Calculated 276.7 MOS/KG (273-304); Potassium 4.1 MMOL/L (3.5-5.1)
[2017-10-19] MEDS: LEVOFLOXACIN INJ 500 MG in PREMIX 1 EACH IV SCH (13:35)
[2017-10-19] MEDS: INSULIN GLARGINE 100 UNIT/ML SUBCUT SCH (22:09)
[2017-10-19] MEDS: GABAPENTIN 300 MG CAPSULE PO SCH (22:10)
[2017-10-20] MEDS: ALBUTEROL/IPRATROPIUM 3 ML NEB RESP TX SCH ×4 (00:41→18:58)
[2017-10-20] MEDS: traMADol 50 MG TABLET PO SCH ×5 (00:56→22:52)
[2017-10-20 06:05] LABS: Hematocrit 34.9 VOL% (35.7-47.0); Hemoglobin 11.7 GM/DL (12.0-16.0); Immature Granulocytes % 0.6 %; Immature Granulocytes Absolute 0.03 #; Lymphocytes # 0.5 10*3/uL (1.4-4.0); Lymphocytes % 11.2 % (21.3-54.2); Mean Corpuscular HGB Conc 33.5 GM/DL (32-36); Mean Corpuscular Hemoglobin 29 PG (27-34); Mean Corpuscular Volume 85.3 FL (87-102); Mean Platelet Volume 11.8 FL (9.6-12.0); Monocytes # 0.2 10*3/uL (0.11-0.8); Monocytes % 3.5 % (1.7-12.7); Neutrophils # 4.1 10*3/uL (1.4-7.4); Neutrophils % 84.7 % (38.7-73.9); Platelet Count 154 T/CUMM (130-400); Red Blood Count 4.09 MC/CUMM (3.8-5.5); Red Cell Distribution Width 15.9 % (9.3-17.3); White Blood Count 4.8 T/CUMM (4-12)
[2017-10-20 06:15] LABS: INR 2.5
[2017-10-20 06:24] LABS: Hypochromasia 1+
[2017-10-20 06:25] LABS: Microcytosis 1+
[2017-10-20 06:26] LABS: Ovalocytes Few; Platelet Estimate Adequate
[2017-10-20 06:37] LABS: Calcium 8.6 MG/DL (8.5-10.1); Osmolality,Calculated 267.9 MOS/KG (273-304); Potassium 3.1 MMOL/L (3.5-5.1)
[2017-10-20] MEDS: PANTOPRAZOLE 40 MG TABLET PO SCH (08:20)
[2017-10-20] MEDS: CARVEDILOL 12.5 MG TABLET PO SCH ×2 (08:20→17:12)
[2017-10-20] MEDS: methylPREDNISolone SOD SUC 40 MG/1 ML VIAL IV SCH ×3 (08:20→22:52)
[2017-10-20] MEDS: DOCUSATE SODIUM 100 MG CAPSULE PO SCH ×2 (08:21→21:52)
[2017-10-20] MEDS: GLIMEPIRIDE 4 MG TABLET PO SCH ×2 (08:21→21:52)
[2017-10-20] MEDS: MULTIVITAMIN (OCUVITE) TABLET PO SCH (08:21)
[2017-10-20] MEDS: BENZONATATE 100 MG CAPSULE PO SCH ×3 (08:21→21:51)
[2017-10-20] MEDS: SPIRONOLACTONE 25 MG TABLET PO SCH (08:21)
[2017-10-20] MEDS: POTASSIUM CHLORIDE 20 MEQ TABLET PO SCH ×3 (08:21→21:52)
[2017-10-20] MEDS: BUDESONIDE/FORMOTEROL 80-4.5 INHALER 6.9 GM INH SCH ×2 (08:22→21:53)
[2017-10-20] MEDS: ALLOPURINOL 100 MG TABLET PO SCH (08:22)
[2017-10-20] MEDS: OMEGA 3 ACID ETHYL ESTERS 1 GM CAPSULE PO SCH (08:22)
[2017-10-20] MEDS: cloNIDine 0.1 MG TABLET PO PRN ×2 (12:48→21:52)
[2017-10-20] MEDS: FUROSEMIDE 40 MG TABLET PO SCH (13:35)
[2017-10-20] MEDS: LEVOFLOXACIN INJ 500 MG in PREMIX 1 EACH IV SCH (13:35)
[2017-10-20] MEDS ORDERED: WARFARIN 7.5 MG TABLET PO SCH (18:00)
[2017-10-20] MEDS: INSULIN GLARGINE 100 UNIT/ML SUBCUT SCH (21:52)
[2017-10-20] MEDS: GABAPENTIN 300 MG CAPSULE PO SCH (21:52)
[2017-10-21] MEDS: ALBUTEROL/IPRATROPIUM 3 ML NEB RESP TX SCH ×2 (00:54→08:00)
[2017-10-21] MEDS: traMADol 50 MG TABLET PO SCH ×3 (01:41→11:19)
[2017-10-21] MEDS: FUROSEMIDE 40 MG TABLET PO SCH (06:01)
[2017-10-21 06:43] LABS: Hematocrit 34.5 VOL% (35.7-47.0); Hemoglobin 11.5 GM/DL (12.0-16.0); Immature Granulocytes % 0.7 %; Immature Granulocytes Absolute 0.03 #; Lymphocytes # 0.6 10*3/uL (1.4-4.0); Mean Corpuscular HGB Conc 33.3 GM/DL (32-36); Mean Corpuscular Hemoglobin 29 PG (27-34); Mean Corpuscular Volume 86.9 FL (87-102); Mean Platelet Volume 10.7 FL (9.6-12.0); Monocytes # 0.2 10*3/uL (0.11-0.8); Monocytes % 4.2 % (1.7-12.7); Neutrophils # 3.7 10*3/uL (1.4-7.4); Neutrophils % 81.1 % (38.7-73.9); Platelet Count 136 T/CUMM (130-400); Red Blood Count 3.97 MC/CUMM (3.8-5.5); Red Cell Distribution Width 15.7 % (9.3-17.3); White Blood Count 4.5 T/CUMM (4-12)
[2017-10-21 06:56] LABS: INR 2.2
[2017-10-21 06:58] LABS: PT Patient Result 22.9 SECS
[2017-10-21 07:07] LABS: Calcium 8.4 MG/DL (8.5-10.1); Osmolality,Calculated 269.7 MOS/KG (273-304); Potassium 3.4 MMOL/L (3.5-5.1)
[2017-10-21 07:09] LABS: Giant Platelets Few; Hypochromasia 1+; Lymphocytes 13 % (20-55); Microcytosis 1+; Ovalocytes Slight; Platelet Estimate Normal; Segmented Neutrophils 83 % (50-85); Total Cells Counted 100
[2017-10-21] MEDS: SPIRONOLACTONE 25 MG TABLET PO SCH (11:08)
[2017-10-21] MEDS: POTASSIUM CHLORIDE 20 MEQ TABLET PO SCH ×2 (11:08→11:10)
[2017-10-21] MEDS: BENZONATATE 100 MG CAPSULE PO SCH (11:09)
[2017-10-21] MEDS: MULTIVITAMIN (OCUVITE) TABLET PO SCH (11:09)
[2017-10-21] MEDS: ALLOPURINOL 100 MG TABLET PO SCH (11:09)
[2017-10-21] MEDS: GLIMEPIRIDE 4 MG TABLET PO SCH (11:09)
[2017-10-21] MEDS: DOCUSATE SODIUM 100 MG CAPSULE PO SCH (11:09)
[2017-10-21] MEDS: CARVEDILOL 12.5 MG TABLET PO SCH (11:09)
[2017-10-21] MEDS: OMEGA 3 ACID ETHYL ESTERS 1 GM CAPSULE PO SCH (11:10)
[2017-10-21] MEDS: PANTOPRAZOLE 40 MG TABLET PO SCH (11:10)
[2017-10-21] MEDS: BUDESONIDE/FORMOTEROL 80-4.5 INHALER 6.9 GM INH SCH (11:12)
[2017-10-21 12:53] VITALS: BP 149/118
[2017-10-22] MEDS ORDERED: predniSONE 10 MG TABLET PO SCH (09:00)
[2017-10-25 09:16] LABS: INR 1.3; PT Patient Result 13.9 SECS
== END 2017-10-21 13:28 | disposition home health service (06) | DRG 191 ==
LOC: N.5E 13:27
PROVIDERS: ADMIT Internal Medicine; ATTEND Internal Medicine

== ENCOUNTER 2017-11-23 05:31 | Inpatient (IN) ==
[2017-11-22 11:37] LABS: Basophils % 0.5 % (0.0-0.8); Eosinophils # 0.1 10*3/uL (0.0-0.87); Eosinophils % 2.4 % (0.00-10.9); Hematocrit 39.1 VOL% (35.7-47.0); Hemoglobin 12.8 GM/DL (12.0-16.0); Immature Granulocytes % 0.7 %; Immature Granulocytes Absolute 0.04 #; Lymphocytes # 1.4 10*3/uL (1.4-4.0); Lymphocytes % 23.6 % (21.3-54.2); Mean Corpuscular HGB Conc 32.7 GM/DL (32-36); Mean Corpuscular Hemoglobin 29 PG (27-34); Mean Corpuscular Volume 88.3 FL (87-102); Mean Platelet Volume 10.2 FL (9.6-12.0); Monocytes # 0.6 10*3/uL (0.11-0.8); Monocytes % 9.7 % (1.7-12.7); Neutrophils # 3.7 10*3/uL (1.4-7.4); Neutrophils % 63.1 % (38.7-73.9); Platelet Count 205 T/CUMM (130-400); Red Blood Count 4.43 MC/CUMM (3.8-5.5); Red Cell Distribution Width 16.9 % (9.3-17.3); White Blood Count 5.9 T/CUMM (4-12)
[2017-11-22 11:47] LABS: INR 1.5; PT Patient Result 15.8 SECS; Partial Thromboplastin Time 34.2 SECS (0-40)
[2017-11-22 11:48] LABS: Albumin 3.4 G/DL (3.4-5.0); Bilirubin,Total 0.6 MG/DL (0.2-1.0); Osmolality,Calculated 275.4 MOS/KG (273-304); Potassium 4.3 MMOL/L (3.5-5.1); Total Protein 7.1 G/DL (6.4-8.3)
[2017-11-23] MEDS ORDERED: ceFAZolin 2,000 MG in PREMIX 1 EACH IV ONE (06:00)
[2017-11-23] MEDS ORDERED: LACTATED RINGERS 1,000 ML IV SCH (06:00)
[2017-11-23 06:39] LABS: INR 1.2; PT Patient Result 12.9 SECS; Partial Thromboplastin Time 31.9 SECS (0-40)
[2017-11-23] MEDS ORDERED: FAMOTIDINE 20 MG TABLET PO ONE (07:56)
[2017-11-23] MEDS ORDERED: ALBUTEROL 2.5 MG/3 ML NEB RESP TX ONE (07:56)
[2017-11-23] MEDS ORDERED: DIAZEPAM 2 MG TABLET PO ONE (07:56)
[2017-11-23] MEDS ORDERED: BUPIVACAINE 0.5% /EPI 10 ML VIAL ONE (09:48)
[2017-11-23] MEDS ORDERED: LIDOCAINE 1% 50 ML VIAL ONE (09:48)
[2017-11-23] MEDS ORDERED: LIDOCAINE 1%/EPI INJ 20 ML VIAL ONE (09:48)
[2017-11-23] MEDS ORDERED: ISOSULFAN BLUE 5 ML VIAL SUBCUT ONE (09:48)
[2017-11-23] MEDS ORDERED: BUPIVACAINE 0.5% 50 ML VIAL ONE (09:48)
[2017-11-23] MEDS ORDERED: TISSUE ADHESIVE 1 EACH APPLICATOR TOP ONE (11:47)
[2017-11-23] MEDS ORDERED: HYDROmorphone 2 MG/1 ML VIAL IV PRN (12:23)
[2017-11-23] MEDS ORDERED: ACETAMINOPHEN 325 MG TABLET PO PRN (12:23)
[2017-11-23] MEDS ORDERED: ONDANSETRON 4 MG/2 ML VIAL IV PRN (12:23)
[2017-11-23] MEDS ORDERED: fentaNYL 100 MCG/2 ML VIAL ONE (13:05)
[2017-11-23] MEDS ORDERED: ALBUTEROL 2.5 MG/3 ML NEB RESP TX PRN (13:24)
[2017-11-23] MEDS: FERROUS SULFATE 325 MG TABLET PO SCH ×2 (15:01→20:48)
[2017-11-23] MEDS: DEXTROSE 5% NACL 0.45% 1,000 ML IV SCH (15:12)
[2017-11-23 16:56] LABS: Hemoglobin 11.6 GM/DL (12.0-16.0)
[2017-11-23] MEDS: ceFAZolin 2,000 MG in PREMIX 1 EACH IV SCH (18:38)
[2017-11-23] MEDS: BUDESONIDE/FORMOTEROL 80-4.5 INHALER 6.9 GM INH SCH (20:46)
[2017-11-23] MEDS: FUROSEMIDE 40 MG TABLET PO SCH (20:48)
[2017-11-23] MEDS: CARVEDILOL 12.5 MG TABLET PO SCH (20:48)
[2017-11-23] MEDS: DOCUSATE SODIUM 100 MG CAPSULE PO SCH (20:48)
[2017-11-23] MEDS: GLIMEPIRIDE 4 MG TABLET PO SCH (20:48)
[2017-11-23] MEDS ORDERED: GABAPENTIN 300 MG CAPSULE PO SCH (21:00)
[2017-11-24] MEDS: ceFAZolin 2,000 MG in PREMIX 1 EACH IV SCH (02:29)
[2017-11-24 06:08] LABS: Basophils % 0.4 % (0.0-0.8); Eosinophils # 0.1 10*3/uL (0.0-0.87); Eosinophils % 2.2 % (0.00-10.9); Hemoglobin 11.7 GM/DL (12.0-16.0); Immature Granulocytes % 0.6 %; Immature Granulocytes Absolute 0.03 #; Lymphocytes # 1.5 10*3/uL (1.4-4.0); Lymphocytes % 31.6 % (21.3-54.2); Mean Corpuscular HGB Conc 33.4 GM/DL (32-36); Mean Corpuscular Hemoglobin 30 PG (27-34); Mean Corpuscular Volume 88.4 FL (87-102); Monocytes # 0.6 10*3/uL (0.11-0.8); Monocytes % 12.7 % (1.7-12.7); Neutrophils # 2.4 10*3/uL (1.4-7.4); Neutrophils % 52.5 % (38.7-73.9); Platelet Count 170 T/CUMM (130-400); Red Blood Count 3.96 MC/CUMM (3.8-5.5); Red Cell Distribution Width 16.8 % (9.3-17.3); White Blood Count 4.7 T/CUMM (4-12)
[2017-11-24 06:31] LABS: Osmolality,Calculated 279.7 MOS/KG (273-304); Potassium 3.7 MMOL/L (3.5-5.1)
[2017-11-24] MEDS: GLIMEPIRIDE 4 MG TABLET PO SCH (08:27)
[2017-11-24] MEDS: DOCUSATE SODIUM 100 MG CAPSULE PO SCH (08:27)
[2017-11-24] MEDS: CARVEDILOL 12.5 MG TABLET PO SCH (08:27)
[2017-11-24] MEDS: FERROUS SULFATE 325 MG TABLET PO SCH (08:27)
[2017-11-24] MEDS: FUROSEMIDE 40 MG TABLET PO SCH (08:27)
[2017-11-24] MEDS ORDERED: OMEGA 3 ACID ETHYL ESTERS 1 GM CAPSULE PO SCH (09:00)
[2017-11-24] MEDS ORDERED: MULTIVITAMIN (OCUVITE) TABLET PO SCH (09:00)
[2017-11-24] MEDS ORDERED: INSULIN GLARGINE 100 UNIT/ML SUBCUT SCH (09:00)
[2017-11-24] MEDS ORDERED: ALLOPURINOL 100 MG TABLET PO SCH (09:00)
[2017-11-24] MEDS ORDERED: PANTOPRAZOLE 40 MG TABLET PO SCH (09:00)
[2017-11-24] MEDS ORDERED: SPIRONOLACTONE 25 MG TABLET PO SCH (09:00)
[2017-11-24] MEDS ORDERED: MAGNESIUM OXIDE 400 MG TABLET PO SCH (09:00)
[2017-11-24] MEDS: DEXTROSE 5% NACL 0.45% 1,000 ML IV SCH (09:41)
[2017-11-24] MEDS: BUDESONIDE/FORMOTEROL 80-4.5 INHALER 6.9 GM INH SCH (09:43)
[2017-11-24 12:01] VITALS: BP 119/59
[2017-11-25] MEDS ORDERED: metOLazone 2.5 MG TABLET PO SCH (09:00)
== END 2017-11-24 12:58 | disposition home health service (06) | DRG 581 ==
LOC: N.OR 05:31 → N.SDSINP 05:32 → N.4E 12:23
PROVIDERS: ADMIT Specialist; ATTEND Specialist

== ENCOUNTER 2018-01-04 20:45 | Inpatient (IN) ==
[2018-01-04] MEDS ORDERED: ALBUTEROL/IPRATROPIUM 3 ML NEB RESP TX STA (21:47)
[2018-01-04] MEDS ORDERED: ONDANSETRON 4 MG/2 ML VIAL IV STA (21:47)
[2018-01-04] MEDS ORDERED: FUROSEMIDE 100 MG/10 ML VIAL IV STA (21:47)
[2018-01-04] MEDS ORDERED: MORPHINE 4 MG/1 ML VIAL IV STA (21:47)
[2018-01-04] MEDS ORDERED: DILTIAZEM 50 MG/10 ML VIAL IV STA (21:53)
[2018-01-04] MEDS ORDERED: VANCOMYCIN INJ 1,000 MG in SODIUM CHLORIDE 0.9% 250 ML IV STA (21:55)
[2018-01-04] MEDS ORDERED: DILTIAZEM 25 MG/5 ML VIAL IV STA (22:38)
[2018-01-04 22:44] LABS: Basophils % 0.2 % (0.0-0.8); Eosinophils # 0.2 10*3/uL (0.0-0.87); Eosinophils % 1.2 % (0.00-10.9); Hematocrit 22.6 VOL% (35.7-47.0); Hemoglobin 7.2 GM/DL (12.0-16.0); Immature Granulocytes % 0.8 %; Immature Granulocytes Absolute 0.11 #; Lymphocytes # 1.4 10*3/uL (1.4-4.0); Lymphocytes % 10.6 % (21.3-54.2); Mean Corpuscular HGB Conc 31.9 GM/DL (32-36); Mean Corpuscular Hemoglobin 30 PG (27-34); Mean Corpuscular Volume 93.4 FL (87-102); Mean Platelet Volume 10.6 FL (9.6-12.0); Monocytes % 7.6 % (1.7-12.7); Neutrophils # 10.6 10*3/uL (1.4-7.4); Neutrophils % 79.6 % (38.7-73.9); Platelet Count 285 T/CUMM (130-400); Red Blood Count 2.42 MC/CUMM (3.8-5.5); Red Cell Distribution Width 16.3 % (9.3-17.3); White Blood Count 13.3 T/CUMM (4-12)
[2018-01-04 23:01] LABS: INR 3.4
[2018-01-04 23:15] LABS: Alanine Aminotransferase 17 U/L (13-56); Albumin 2.7 G/DL (3.4-5.0); Alkaline Phosphatase 79 U/L (45-117); Aspartate Amino Transferase 18 U/L (0-37); Blood Urea Nitrogen 39 MG/DL (7-18); Calcium 8.6 MG/DL (8.5-10.1); Glucose 136 MG/DL (74-106); Osmolality,Calculated 283.8 MOS/KG (273-304); Potassium 3.6 MMOL/L (3.5-5.1); Sodium 137 MMOL/L (136-145); Total Protein 8.1 G/DL (6.4-8.3); Troponin I Only < 0.015 NG/ML (0.00-0.045)
[2018-01-05] MEDS ORDERED: GLUCAGON 1 MG VIAL IM PRN (01:23)
[2018-01-05] MEDS ORDERED: DEXTROSE 50% 25 GM/50 ML VIAL IV PRN (01:23)
[2018-01-05] MEDS ORDERED: CEFTAROLINE 600 MG in SODIUM CHLORIDE 0.9% 100 ML IV SCH (01:23)
[2018-01-05] MEDS ORDERED: ACETAMINOPHEN 325 MG TABLET PO PRN ×2 (01:23)
[2018-01-05] MEDS ORDERED: ALBUTEROL 2.5 MG/3 ML NEB RESP TX PRN (01:23)
[2018-01-05] MEDS ORDERED: ONDANSETRON 4 MG/2 ML VIAL IV PRN (01:23)
[2018-01-05] MEDS ORDERED: ALBUTEROL/IPRATROPIUM 3 ML NEB RESP TX PRN (01:23)
[2018-01-05] MEDS: SODIUM CHLORIDE 0.9% 1,000 ML IV SCH (02:25)
[2018-01-05 06:10] LABS: Basophils % 0.3 % (0.0-0.8); Eosinophils # 0.1 10*3/uL (0.0-0.87); Eosinophils % 1.5 % (0.00-10.9); Hemoglobin 9.9 GM/DL (12.0-16.0); Immature Granulocytes % 0.6 %; Immature Granulocytes Absolute 0.04 #; Lymphocytes # 1.1 10*3/uL (1.4-4.0); Lymphocytes % 16.9 % (21.3-54.2); Mean Corpuscular Hemoglobin 30 PG (27-34); Mean Corpuscular Volume 91.2 FL (87-102); Mean Platelet Volume 11.2 FL (9.6-12.0); Monocytes # 0.6 10*3/uL (0.11-0.8); Monocytes % 8.8 % (1.7-12.7); Neutrophils # 4.7 10*3/uL (1.4-7.4); Neutrophils % 71.9 % (38.7-73.9); Platelet Count 190 T/CUMM (130-400); Red Blood Count 3.29 MC/CUMM (3.8-5.5); Red Cell Distribution Width 16.4 % (9.3-17.3); White Blood Count 6.5 T/CUMM (4-12)
[2018-01-05 06:47] LABS: Albumin 2.3 G/DL (3.4-5.0); Calcium 8.7 MG/DL (8.5-10.1); Osmolality,Calculated 285.5 MOS/KG (273-304); Risk Ratio 2.8; Total Protein 7.4 G/DL (6.4-8.3); VLDL CHOLESTEROL 12.4 MG/DL
[2018-01-05] MEDS: INSULIN REGULAR 100 UNIT/ML SUBCUT SCH ×4 (07:40→20:56)
[2018-01-05] MEDS ORDERED: FLUCONAZOLE 200 MG TABLET PO ONE (08:42)
[2018-01-05] MEDS ORDERED: DOCUSATE SODIUM 100 MG CAPSULE PO SCH (09:00)
[2018-01-05] MEDS: FUROSEMIDE 20 MG/2 ML VIAL IV SCH ×2 (09:27→16:43)
[2018-01-05] MEDS: PANTOPRAZOLE 40 MG VIAL IV SCH (09:33)
[2018-01-05] MEDS ORDERED: VANCOMYCIN INJ 1,250 MG in SODIUM CHLORIDE 0.9% 250 ML IV SCH (10:00)
[2018-01-05] MEDS: OMEGA 3 ACID ETHYL ESTERS 1 GM CAPSULE PO SCH (10:22)
[2018-01-05] MEDS: CARVEDILOL 12.5 MG TABLET PO SCH ×2 (10:22→20:55)
[2018-01-05] MEDS: MULTIVITAMIN (OCUVITE) TABLET PO SCH (10:22)
[2018-01-05] MEDS: GLIMEPIRIDE 4 MG TABLET PO SCH ×2 (10:22→20:55)
[2018-01-05] MEDS: ALLOPURINOL 100 MG TABLET PO SCH (10:22)
[2018-01-05] MEDS: BUDESONIDE/FORMOTEROL 80-4.5 INHALER 6.9 GM INH SCH ×2 (10:22→20:55)
[2018-01-05] MEDS: MAGNESIUM OXIDE 400 MG TABLET PO SCH (10:23)
[2018-01-05 10:57] LABS: INR 3.4
[2018-01-05 10:59] LABS: PT Patient Result 34.7 SECS
[2018-01-05] MEDS: NYSTATIN POWDER 15 GM BOTTLE TOP SCH (11:01)
[2018-01-05] MEDS: INSULIN GLARGINE 100 UNIT/ML SUBCUT SCH (11:30)
[2018-01-05] MEDS: DOCUSATE SODIUM 100 MG CAPSULE PO SCH (20:54)
[2018-01-05] MEDS: GABAPENTIN 300 MG CAPSULE PO SCH (20:55)
[2018-01-05] MEDS: VANCOMYCIN INJ 1,250 MG in SODIUM CHLORIDE 0.9% 250 ML IV SCH (21:03)
[2018-01-06 06:26] LABS: Basophils % 0.5 % (0.0-0.8); Eosinophils # 0.1 10*3/uL (0.0-0.87); Hematocrit 31.8 VOL% (35.7-47.0); Hemoglobin 10.6 GM/DL (12.0-16.0); Immature Granulocytes % 0.7 %; Immature Granulocytes Absolute 0.04 #; Lymphocytes # 0.9 10*3/uL (1.4-4.0); Lymphocytes % 14.6 % (21.3-54.2); Mean Corpuscular HGB Conc 33.3 GM/DL (32-36); Mean Corpuscular Hemoglobin 30 PG (27-34); Mean Corpuscular Volume 91.1 FL (87-102); Mean Platelet Volume 10.6 FL (9.6-12.0); Monocytes # 0.5 10*3/uL (0.11-0.8); Monocytes % 8.3 % (1.7-12.7); Neutrophils # 4.5 10*3/uL (1.4-7.4); Neutrophils % 74.9 % (38.7-73.9); Platelet Count 233 T/CUMM (130-400); Red Blood Count 3.49 MC/CUMM (3.8-5.5); Red Cell Distribution Width 16.6 % (9.3-17.3)
[2018-01-06 06:39] LABS: INR 3.4
[2018-01-06 06:43] LABS: PT Patient Result 34.3 SECS
[2018-01-06 07:06] LABS: Calcium 8.5 MG/DL (8.5-10.1); Osmolality,Calculated 286.3 MOS/KG (273-304); Potassium 3.2 MMOL/L (3.5-5.1)
[2018-01-06] MEDS: INSULIN REGULAR 100 UNIT/ML SUBCUT SCH ×4 (07:15→21:02)
[2018-01-06] MEDS: SODIUM CHLORIDE 0.9% 1,000 ML IV SCH (08:16)
[2018-01-06] MEDS: CARVEDILOL 12.5 MG TABLET PO SCH ×2 (09:49→21:05)
[2018-01-06] MEDS: BUDESONIDE/FORMOTEROL 80-4.5 INHALER 6.9 GM INH SCH ×2 (09:51→21:05)
[2018-01-06] MEDS: PANTOPRAZOLE 40 MG VIAL IV SCH (09:51)
[2018-01-06] MEDS: FUROSEMIDE 20 MG/2 ML VIAL IV SCH ×2 (09:53→18:09)
[2018-01-06] MEDS: GLIMEPIRIDE 4 MG TABLET PO SCH ×2 (10:07→21:04)
[2018-01-06] MEDS: DOCUSATE SODIUM 100 MG CAPSULE PO SCH ×2 (10:07→21:05)
[2018-01-06] MEDS: INSULIN GLARGINE 100 UNIT/ML SUBCUT SCH (10:08)
[2018-01-06] MEDS: OMEGA 3 ACID ETHYL ESTERS 1 GM CAPSULE PO SCH (10:08)
[2018-01-06] MEDS: NYSTATIN POWDER 15 GM BOTTLE TOP SCH (10:08)
[2018-01-06] MEDS: FLUCONAZOLE 100 MG TABLET PO SCH (10:08)
[2018-01-06] MEDS: MAGNESIUM OXIDE 400 MG TABLET PO SCH (10:08)
[2018-01-06] MEDS: MULTIVITAMIN (OCUVITE) TABLET PO SCH (10:09)
[2018-01-06] MEDS: ALLOPURINOL 100 MG TABLET PO SCH (10:09)
[2018-01-06] MEDS: metOLazone 2.5 MG TABLET PO SCH (10:09)
[2018-01-06] MEDS ORDERED: LIDOCAINE 1% 20 ML VIAL ONE (10:26)
[2018-01-06] MEDS ORDERED: MICROFIBRILLAR COLLAGEN POWDER 1 GM CAN TOP ONE (10:58)
[2018-01-06] MEDS ORDERED: MIDAZOLAM 2 MG/2 ML VIAL ONE (11:50)
[2018-01-06] MEDS ORDERED: KETAMINE 500 MG/10 ML VIAL ONE (11:51)
[2018-01-06] MEDS: GABAPENTIN 300 MG CAPSULE PO SCH (21:04)
[2018-01-06] MEDS: VANCOMYCIN INJ 1,250 MG in SODIUM CHLORIDE 0.9% 250 ML IV SCH (22:19)
[2018-01-07] MEDS: SODIUM CHLORIDE 0.9% 1,000 ML IV SCH ×2 (07:10→23:30)
[2018-01-07 07:15] LABS: Basophils % 0.6 % (0.0-0.8); Eosinophils # 0.1 10*3/uL (0.0-0.87); Eosinophils % 2.1 % (0.00-10.9); Hematocrit 29.9 VOL% (35.7-47.0); Hemoglobin 9.8 GM/DL (12.0-16.0); Immature Granulocytes % 0.8 %; Immature Granulocytes Absolute 0.04 #; Lymphocytes % 18.3 % (21.3-54.2); Mean Corpuscular HGB Conc 32.8 GM/DL (32-36); Mean Corpuscular Hemoglobin 30 PG (27-34); Mean Corpuscular Volume 91.7 FL (87-102); Mean Platelet Volume 10.3 FL (9.6-12.0); Monocytes # 0.6 10*3/uL (0.11-0.8); Monocytes % 10.6 % (1.7-12.7); Neutrophils # 3.6 10*3/uL (1.4-7.4); Neutrophils % 67.6 % (38.7-73.9); Platelet Count 195 T/CUMM (130-400); Red Blood Count 3.26 MC/CUMM (3.8-5.5); Red Cell Distribution Width 16.4 % (9.3-17.3); White Blood Count 5.3 T/CUMM (4-12)
[2018-01-07] MEDS: INSULIN REGULAR 100 UNIT/ML SUBCUT SCH (07:30)
[2018-01-07 07:33] LABS: INR 3.4
[2018-01-07 07:38] LABS: Osmolality,Calculated 279.7 MOS/KG (273-304); Potassium 3.1 MMOL/L (3.5-5.1)
[2018-01-07 07:41] LABS: PT Patient Result 33.9 SECS
[2018-01-07] MEDS: NYSTATIN POWDER 15 GM BOTTLE TOP SCH (09:30)
[2018-01-07] MEDS: INSULIN GLARGINE 100 UNIT/ML SUBCUT SCH (09:31)
[2018-01-07] MEDS: PANTOPRAZOLE 40 MG VIAL IV SCH (09:32)
[2018-01-07] MEDS: FUROSEMIDE 20 MG/2 ML VIAL IV SCH (09:34)
[2018-01-07] MEDS: GLIMEPIRIDE 4 MG TABLET PO SCH ×2 (09:37→21:28)
[2018-01-07] MEDS: ALLOPURINOL 100 MG TABLET PO SCH (09:37)
[2018-01-07] MEDS: CARVEDILOL 12.5 MG TABLET PO SCH ×2 (09:38→21:51)
[2018-01-07] MEDS: OMEGA 3 ACID ETHYL ESTERS 1 GM CAPSULE PO SCH (09:38)
[2018-01-07] MEDS: MULTIVITAMIN (OCUVITE) TABLET PO SCH (09:39)
[2018-01-07] MEDS: DOCUSATE SODIUM 100 MG CAPSULE PO SCH ×2 (09:39→21:42)
[2018-01-07] MEDS: FLUCONAZOLE 100 MG TABLET PO SCH (09:39)
[2018-01-07] MEDS: MAGNESIUM OXIDE 400 MG TABLET PO SCH (09:40)
[2018-01-07] MEDS: BUDESONIDE/FORMOTEROL 80-4.5 INHALER 6.9 GM INH SCH ×2 (09:41→23:36)
[2018-01-07] MEDS: POTASSIUM CHLORIDE 8 MEQ CAPSULE PO SCH ×2 (09:44→21:42)
[2018-01-07] MEDS: INSULIN LISPRO 100 UNIT/ML SUBCUT SCH ×3 (11:55→21:28)
[2018-01-07] MEDS: FUROSEMIDE 40 MG TABLET PO SCH ×2 (21:42)
[2018-01-07] MEDS: GABAPENTIN 300 MG CAPSULE PO SCH (21:42)
[2018-01-07] MEDS: VANCOMYCIN INJ 1,250 MG in SODIUM CHLORIDE 0.9% 250 ML IV SCH (23:41)
[2018-01-07] MEDS: MORPHINE 4 MG/1 ML VIAL IV PRN (23:55)
[2018-01-08 05:07] LABS: Basophils % 0.4 % (0.0-0.8); Eosinophils # 0.1 10*3/uL (0.0-0.87); Eosinophils % 2.2 % (0.00-10.9); Hematocrit 29.1 VOL% (35.7-47.0); Hemoglobin 9.2 GM/DL (12.0-16.0); Immature Granulocytes % 0.7 %; Immature Granulocytes Absolute 0.04 #; Lymphocytes # 1.1 10*3/uL (1.4-4.0); Lymphocytes % 19.5 % (21.3-54.2); Mean Corpuscular HGB Conc 31.6 GM/DL (32-36); Mean Corpuscular Hemoglobin 30 PG (27-34); Mean Corpuscular Volume 95.1 FL (87-102); Mean Platelet Volume 10.5 FL (9.6-12.0); Monocytes # 0.6 10*3/uL (0.11-0.8); Monocytes % 10.2 % (1.7-12.7); Neutrophils # 3.7 10*3/uL (1.4-7.4); Platelet Count 168 T/CUMM (130-400); Red Blood Count 3.06 MC/CUMM (3.8-5.5); Red Cell Distribution Width 16.5 % (9.3-17.3); White Blood Count 5.5 T/CUMM (4-12)
[2018-01-08 05:34] LABS: Osmolality,Calculated 283.5 MOS/KG (273-304); Potassium 3.1 MMOL/L (3.5-5.1)
[2018-01-08 05:54] LABS: INR 2.6
[2018-01-08 06:04] LABS: PT Patient Result 26.6 SECS
[2018-01-08] MEDS: MORPHINE 4 MG/1 ML VIAL IV PRN (06:54)
[2018-01-08] MEDS: INSULIN LISPRO 100 UNIT/ML SUBCUT SCH ×4 (07:30→21:53)
[2018-01-08] MEDS: ALLOPURINOL 100 MG TABLET PO SCH (09:19)
[2018-01-08] MEDS: POTASSIUM CHLORIDE 8 MEQ CAPSULE PO SCH ×2 (09:20→22:35)
[2018-01-08] MEDS: CARVEDILOL 12.5 MG TABLET PO SCH ×2 (09:20→21:53)
[2018-01-08] MEDS: FLUCONAZOLE 100 MG TABLET PO SCH (09:21)
[2018-01-08] MEDS: MAGNESIUM OXIDE 400 MG TABLET PO SCH (09:21)
[2018-01-08] MEDS: MULTIVITAMIN (OCUVITE) TABLET PO SCH (09:21)
[2018-01-08] MEDS: PANTOPRAZOLE 40 MG TABLET PO SCH (09:22)
[2018-01-08] MEDS: OMEGA 3 ACID ETHYL ESTERS 1 GM CAPSULE PO SCH (09:22)
[2018-01-08] MEDS: FUROSEMIDE 40 MG TABLET PO SCH ×2 (09:22→21:55)
[2018-01-08] MEDS: DOCUSATE SODIUM 100 MG CAPSULE PO SCH ×2 (09:23→22:35)
[2018-01-08] MEDS: NYSTATIN POWDER 15 GM BOTTLE TOP SCH (09:23)
[2018-01-08] MEDS: GLIMEPIRIDE 4 MG TABLET PO SCH ×2 (09:23→22:35)
[2018-01-08] MEDS: INSULIN GLARGINE 100 UNIT/ML SUBCUT SCH (09:23)
[2018-01-08] MEDS: BUDESONIDE/FORMOTEROL 80-4.5 INHALER 6.9 GM INH SCH ×2 (09:26→22:36)
[2018-01-08] MEDS ORDERED: traMADol 50 MG TABLET PO PRN (10:12)
[2018-01-08] MEDS ORDERED: POTASSIUM CHLORIDE 8 MEQ CAPSULE PO ONE (10:14)
[2018-01-08] MEDS: CLINDAMYCIN 300 MG CAPSULE PO SCH ×2 (14:15→22:35)
[2018-01-08] MEDS ORDERED: WARFARIN 7.5 MG TABLET PO SCH (18:00)
[2018-01-08] MEDS: GABAPENTIN 300 MG CAPSULE PO SCH (22:36)
[2018-01-08] MEDS: VANCOMYCIN INJ 1,250 MG in SODIUM CHLORIDE 0.9% 250 ML IV SCH (22:50)
[2018-01-09 05:33] LABS: Basophils % 0.4 % (0.0-0.8); Eosinophils # 0.1 10*3/uL (0.0-0.87); Eosinophils % 2.8 % (0.00-10.9); Hematocrit 28.7 VOL% (35.7-47.0); Immature Granulocytes % 0.4 %; Immature Granulocytes Absolute 0.02 #; Lymphocytes # 1.1 10*3/uL (1.4-4.0); Lymphocytes % 23.5 % (21.3-54.2); Mean Corpuscular HGB Conc 31.4 GM/DL (32-36); Mean Corpuscular Hemoglobin 30 PG (27-34); Mean Corpuscular Volume 94.7 FL (87-102); Mean Platelet Volume 10.6 FL (9.6-12.0); Monocytes # 0.5 10*3/uL (0.11-0.8); Monocytes % 10.2 % (1.7-12.7); Neutrophils % 62.7 % (38.7-73.9); Platelet Count 169 T/CUMM (130-400); Red Blood Count 3.03 MC/CUMM (3.8-5.5); Red Cell Distribution Width 16.3 % (9.3-17.3); White Blood Count 4.7 T/CUMM (4-12)
[2018-01-09 05:46] LABS: INR 2.4
[2018-01-09 05:50] LABS: Calcium 7.8 MG/DL (8.5-10.1); Osmolality,Calculated 275.7 MOS/KG (273-304); Potassium 3.8 MMOL/L (3.5-5.1)
[2018-01-09 05:55] LABS: PT Patient Result 24.2 SECS
[2018-01-09] MEDS: CLINDAMYCIN 300 MG CAPSULE PO SCH ×2 (06:27→13:25)
[2018-01-09] MEDS: INSULIN LISPRO 100 UNIT/ML SUBCUT SCH ×2 (08:35→10:58)
[2018-01-09] MEDS: NYSTATIN POWDER 15 GM BOTTLE TOP SCH (09:01)
[2018-01-09] MEDS: INSULIN GLARGINE 100 UNIT/ML SUBCUT SCH (09:02)
[2018-01-09] MEDS: ALLOPURINOL 100 MG TABLET PO SCH (09:31)
[2018-01-09] MEDS: MAGNESIUM OXIDE 400 MG TABLET PO SCH (09:31)
[2018-01-09] MEDS: PANTOPRAZOLE 40 MG TABLET PO SCH (09:32)
[2018-01-09] MEDS: POTASSIUM CHLORIDE 8 MEQ CAPSULE PO SCH (09:32)
[2018-01-09] MEDS: metOLazone 2.5 MG TABLET PO SCH (09:32)
[2018-01-09] MEDS: GLIMEPIRIDE 4 MG TABLET PO SCH (09:32)
[2018-01-09] MEDS: CARVEDILOL 12.5 MG TABLET PO SCH (09:33)
[2018-01-09] MEDS: FUROSEMIDE 40 MG TABLET PO SCH (09:33)
[2018-01-09] MEDS: DOCUSATE SODIUM 100 MG CAPSULE PO SCH (09:33)
[2018-01-09] MEDS: OMEGA 3 ACID ETHYL ESTERS 1 GM CAPSULE PO SCH (09:33)
[2018-01-09] MEDS: MULTIVITAMIN (OCUVITE) TABLET PO SCH (09:33)
[2018-01-09] MEDS: BUDESONIDE/FORMOTEROL 80-4.5 INHALER 6.9 GM INH SCH (09:42)
[2018-01-09 11:18] VITALS: BP 139/81
== END 2018-01-09 14:52 | disposition home health service (06) | DRG 255 ==
LOC: N.ED 20:45 → N.EDINP 23:33 → N.3E 01-05 01:07
PROVIDERS: ADMIT Internal Medicine; ATTEND Internal Medicine

== ENCOUNTER 2018-01-17 19:25 | Observation (INO) ==
[2018-01-17 21:35] LABS: Basophils % 0.7 % (0.0-0.8); Eosinophils # 0.2 10*3/uL (0.0-0.87); Eosinophils % 2.8 % (0.00-10.9); Hematocrit 32.7 VOL% (35.7-47.0); Hemoglobin 10.5 GM/DL (12.0-16.0); Immature Granulocytes % 0.7 %; Immature Granulocytes Absolute 0.04 #; Lymphocytes # 1.3 10*3/uL (1.4-4.0); Lymphocytes % 23.6 % (21.3-54.2); Mean Corpuscular HGB Conc 32.1 GM/DL (32-36); Mean Corpuscular Hemoglobin 30 PG (27-34); Mean Corpuscular Volume 93.7 FL (87-102); Mean Platelet Volume 10.4 FL (9.6-12.0); Monocytes # 0.6 10*3/uL (0.11-0.8); Monocytes % 10.6 % (1.7-12.7); Neutrophils # 3.3 10*3/uL (1.4-7.4); Neutrophils % 61.6 % (38.7-73.9); Platelet Count 237 T/CUMM (130-400); Red Blood Count 3.49 MC/CUMM (3.8-5.5); Red Cell Distribution Width 16.9 % (9.3-17.3); White Blood Count 5.4 T/CUMM (4-12)
[2018-01-17 21:48] LABS: PT Patient Result 58.9 SECS
[2018-01-18 05:51] LABS: Basophils % 0.4 % (0.0-0.8); Eosinophils # 0.2 10*3/uL (0.0-0.87); Eosinophils % 2.9 % (0.00-10.9); Hematocrit 30.4 VOL% (35.7-47.0); Hemoglobin 9.8 GM/DL (12.0-16.0); Immature Granulocytes % 0.6 %; Immature Granulocytes Absolute 0.03 #; Lymphocytes # 1.1 10*3/uL (1.4-4.0); Lymphocytes % 20.4 % (21.3-54.2); Mean Corpuscular HGB Conc 32.2 GM/DL (32-36); Mean Corpuscular Hemoglobin 30 PG (27-34); Mean Corpuscular Volume 92.1 FL (87-102); Mean Platelet Volume 10.7 FL (9.6-12.0); Monocytes # 0.5 10*3/uL (0.11-0.8); Monocytes % 9.8 % (1.7-12.7); Neutrophils # 3.4 10*3/uL (1.4-7.4); Neutrophils % 65.9 % (38.7-73.9); Platelet Count 231 T/CUMM (130-400); Red Cell Distribution Width 16.9 % (9.3-17.3); White Blood Count 5.2 T/CUMM (4-12)
[2018-01-18 06:12] LABS: Albumin 2.6 G/DL (3.4-5.0); Bilirubin,Total 0.9 MG/DL (0.2-1.0); Calcium 8.2 MG/DL (8.5-10.1); Osmolality,Calculated 287.4 MOS/KG (273-304); Potassium 3.6 MMOL/L (3.5-5.1); Total Protein 7.5 G/DL (6.4-8.3)
[2018-01-18 16:19] LABS: PT Patient Result 39.8 SECS
[2018-01-18 23:47] LABS: Hematocrit 29.1 VOL% (35.7-47.0); Hemoglobin 9.3 GM/DL (12.0-16.0)
[2018-01-19 00:04] LABS: INR 3.5
[2018-01-19 00:08] LABS: PT Patient Result 35.5 SECS
[2018-01-19 05:29] LABS: Hematocrit 28.7 VOL% (35.7-47.0)
[2018-01-19 08:14] LABS: PT Patient Result 30.5 SECS
[2018-01-19 11:05] VITALS: BP 142/79
== END 2018-01-19 14:30 | disposition home or self-care (01) ==
LOC: N.EDINP 19:25 → N.ED 19:25 → N.3E 23:40
PROVIDERS: ADMIT Internal Medicine; ATTEND Internal Medicine

== ENCOUNTER 2018-01-19 22:19 | Inpatient (IN) ==
[2018-01-19] MEDS ORDERED: DILTIAZEM 50 MG/10 ML VIAL IV STA (23:08)
[2018-01-19 23:32] LABS: Basophils % 0.4 % (0.0-0.8); Eosinophils # 0.1 10*3/uL (0.0-0.87); Eosinophils % 0.5 % (0.00-10.9); Hematocrit 30.2 VOL% (35.7-47.0); Hemoglobin 9.5 GM/DL (12.0-16.0); Immature Granulocytes % 0.5 %; Immature Granulocytes Absolute 0.06 #; Lymphocytes # 1.3 10*3/uL (1.4-4.0); Lymphocytes % 12.2 % (21.3-54.2); Mean Corpuscular HGB Conc 31.5 GM/DL (32-36); Mean Corpuscular Hemoglobin 30 PG (27-34); Monocytes # 0.9 10*3/uL (0.11-0.8); Monocytes % 8.4 % (1.7-12.7); Neutrophils # 8.5 10*3/uL (1.4-7.4); Platelet Count 235 T/CUMM (130-400); Red Blood Count 3.18 MC/CUMM (3.8-5.5); Red Cell Distribution Width 16.5 % (9.3-17.3); White Blood Count 10.9 T/CUMM (4-12)
[2018-01-19 23:51] LABS: Albumin 2.5 G/DL (3.4-5.0); Bilirubin,Total 0.6 MG/DL (0.2-1.0); Calcium 8.5 MG/DL (8.5-10.1); Osmolality,Calculated 279.8 MOS/KG (273-304); Potassium 3.9 MMOL/L (3.5-5.1); Total Protein 7.7 G/DL (6.4-8.3)
[2018-01-20 00:11] LABS: Troponin I Only < 0.015 NG/ML (0.00-0.045)
[2018-01-20] MEDS: DILTIAZEM INJ 100 MG in SODIUM CHLORIDE 0.9% 100 ML IV SCH ×2 (00:13→18:19)
[2018-01-20 02:15] LABS: Apearance,Urine CLEAR (Clear); Bilirubin,Urine Negative (Negative); Blood, Urine Negative (Negative); Glucose,Urine (UA) Negative (Negative); Ketones,Urine Negative (Negative); Mucus,Urine Occasional /LPF (Occasional); Nitrite,Urine Negative (Negative); Protein,Urine Negative; RBC,Urine 1 /HPF (0-4); Squamous Epithelial Cell,Urine Occasional /HPF (0-10); Urine Color Yellow (Yellow); Urine Specific Gravity 1.012 (1.001-1.035); Urine Urobilinogen < 2.0 EU/DL (0.2-1.0); WBC,Urine <1 /HPF (0-6)
[2018-01-20] MEDS ORDERED: GLUCAGON 1 MG VIAL IM PRN ×2 (02:49→05:05)
[2018-01-20] MEDS ORDERED: DEXTROSE 50% 25 GM/50 ML VIAL IV PRN ×2 (02:49→05:05)
[2018-01-20] MEDS ORDERED: INSULIN GLARGINE 100 UNIT/ML SUBCUT PRN (04:00)
[2018-01-20] MEDS ORDERED: SODIUM CHLORIDE 0.9% 1,000 ML IV SCH (04:47)
[2018-01-20] MEDS: CLINDAMYCIN 300 MG CAPSULE PO SCH ×3 (05:09→21:40)
[2018-01-20] MEDS: SODIUM CHLORIDE 0.9% 75 ML IV SCH ×2 (05:40→05:41)
[2018-01-20] MEDS: ACETAMINOPHEN 325 MG TABLET PO PRN (07:54)
[2018-01-20] MEDS ORDERED: PANTOPRAZOLE 40 MG VIAL IV PRN (09:00)
[2018-01-20] MEDS ORDERED: CARVEDILOL 12.5 MG TABLET PO SCH (09:00)
[2018-01-20] MEDS ORDERED: ALBUTEROL/IPRATROPIUM 3 ML NEB RESP TX ONE (11:40)
[2018-01-20] MEDS ORDERED: LIDOCAINE 1% 20 ML VIAL ONE (11:47)
[2018-01-20] MEDS ORDERED: DIAZEPAM 5 MG TABLET ONE (12:09)
[2018-01-20] MEDS ORDERED: DIAZEPAM 5 MG TABLET PO ONE (12:14)
[2018-01-20] MEDS: INSULIN LISPRO 100 UNIT/ML SUBCUT SCH ×3 (12:27→21:40)
[2018-01-20] MEDS ORDERED: MICROFIBRILLAR COLLAGEN POWDER 1 GM CAN TOP ONE (12:48)
[2018-01-20] MEDS ORDERED: fentaNYL 100 MCG/2 ML VIAL ONE (13:23)
[2018-01-20] MEDS ORDERED: MIDAZOLAM 2 MG/2 ML VIAL ONE (13:23)
[2018-01-20] MEDS ORDERED: METOPROLOL TARTRATE 5 MG/5 ML VIAL IV ONE (13:23)
[2018-01-20] MEDS ORDERED: hydrALAZINE 20 MG/1 ML VIAL IV PRN (15:30)
[2018-01-20] MEDS: metOLazone 2.5 MG TABLET PO SCH (15:56)
[2018-01-20] MEDS: POTASSIUM CHLORIDE 8 MEQ CAPSULE PO SCH ×2 (15:57→21:39)
[2018-01-20] MEDS: MULTIVITAMIN (OCUVITE) TABLET PO SCH (15:57)
[2018-01-20] MEDS: DOCUSATE SODIUM 100 MG CAPSULE PO SCH ×2 (15:57→21:38)
[2018-01-20] MEDS: GLIMEPIRIDE 4 MG TABLET PO SCH ×2 (15:57→21:38)
[2018-01-20] MEDS: ALLOPURINOL 100 MG TABLET PO SCH (15:57)
[2018-01-20] MEDS: BUDESONIDE/FORMOTEROL 80-4.5 INHALER 6.9 GM INH SCH ×2 (15:58→21:40)
[2018-01-20] MEDS: FUROSEMIDE 40 MG TABLET PO SCH ×2 (15:58→21:39)
[2018-01-20] MEDS: PANTOPRAZOLE 40 MG TABLET PO SCH (15:58)
[2018-01-20] MEDS: ONDANSETRON 4 MG/2 ML VIAL IV PRN (19:08)
[2018-01-20] MEDS: GABAPENTIN 300 MG CAPSULE PO SCH (21:39)
[2018-01-20] MEDS: CARVEDILOL 25 MG TABLET PO SCH (21:39)
[2018-01-20] MEDS: MAGNESIUM OXIDE 400 MG TABLET PO SCH (21:39)
[2018-01-20] MEDS: ALBUTEROL 2.5 MG/3 ML NEB RESP TX PRN (23:50)
[2018-01-21] MEDS: DILTIAZEM INJ 100 MG in SODIUM CHLORIDE 0.9% 100 ML IV SCH ×2 (00:05→22:45)
[2018-01-21] MEDS: ONDANSETRON 4 MG/2 ML VIAL IV PRN ×2 (01:08→17:22)
[2018-01-21 01:14] LABS: Basophils % 0.2 % (0.0-0.8); Eosinophils % 0.1 % (0.00-10.9); Hematocrit 26.1 VOL% (35.7-47.0); Hemoglobin 8.1 GM/DL (12.0-16.0); Immature Granulocytes % 0.7 %; Immature Granulocytes Absolute 0.07 #; Lymphocytes # 0.6 10*3/uL (1.4-4.0); Lymphocytes % 5.5 % (21.3-54.2); Mean Corpuscular Hemoglobin 30 PG (27-34); Mean Platelet Volume 10.5 FL (9.6-12.0); Monocytes # 0.5 10*3/uL (0.11-0.8); Monocytes % 4.8 % (1.7-12.7); Neutrophils # 9.5 10*3/uL (1.4-7.4); Neutrophils % 88.7 % (38.7-73.9); Platelet Count 211 T/CUMM (130-400); Red Blood Count 2.72 MC/CUMM (3.8-5.5); Red Cell Distribution Width 16.7 % (9.3-17.3); White Blood Count 10.7 T/CUMM (4-12)
[2018-01-21 01:17] LABS: Calcium 7.9 MG/DL (8.5-10.1); Osmolality,Calculated 282.7 MOS/KG (273-304); Potassium 4.3 MMOL/L (3.5-5.1)
[2018-01-21 01:19] LABS: INR 1.5; PT Patient Result 16.1 SECS
[2018-01-21] MEDS: CLINDAMYCIN 300 MG CAPSULE PO SCH (06:45)
[2018-01-21] MEDS: INSULIN LISPRO 100 UNIT/ML SUBCUT SCH ×4 (08:12→21:39)
[2018-01-21] MEDS: ALLOPURINOL 100 MG TABLET PO SCH (09:12)
[2018-01-21] MEDS: POTASSIUM CHLORIDE 8 MEQ CAPSULE PO SCH ×2 (09:12→21:38)
[2018-01-21] MEDS: FUROSEMIDE 40 MG TABLET PO SCH ×2 (09:13→21:38)
[2018-01-21] MEDS: DOCUSATE SODIUM 100 MG CAPSULE PO SCH ×2 (09:13→21:39)
[2018-01-21] MEDS: CARVEDILOL 25 MG TABLET PO SCH ×2 (09:13→21:39)
[2018-01-21] MEDS: MULTIVITAMIN (OCUVITE) TABLET PO SCH (09:13)
[2018-01-21] MEDS: BUDESONIDE/FORMOTEROL 80-4.5 INHALER 6.9 GM INH SCH ×2 (09:13→21:12)
[2018-01-21] MEDS: GLIMEPIRIDE 4 MG TABLET PO SCH ×2 (09:13→21:38)
[2018-01-21] MEDS: PANTOPRAZOLE 40 MG TABLET PO SCH (09:17)
[2018-01-21 09:57] LABS: Apearance,Urine CLOUDY (Clear); Bacteria,Urine Few /HPF (Few); Bilirubin,Urine Negative (Negative); Blood, Urine Negative (Negative); Glucose,Urine (UA) Negative (Negative); Hyaline Casts,Urine 21 /LPF (0-3); Ketones,Urine Negative (Negative); Mucus,Urine Occasional /LPF (Occasional); Nitrite,Urine Negative (Negative); Protein,Urine Negative; RBC,Urine 5 /HPF (0-4); Squamous Epithelial Cell,Urine Moderate /HPF (0-10); Urine Color Amber (Yellow); Urine Specific Gravity 1.014 (1.001-1.035); WBC,Urine 3 /HPF (0-6)
[2018-01-21] MEDS: ALBUTEROL 2.5 MG/3 ML NEB RESP TX PRN ×2 (12:46→21:13)
[2018-01-21] MEDS: MEROPENEM 1,000 MG in SYRINGE 1 EACH IV SCH ×2 (13:02→18:21)
[2018-01-21] MEDS: LORATADINE 10 MG TABLET PO PRN (18:21)
[2018-01-21] MEDS: ACETAMINOPHEN 325 MG TABLET PO PRN (18:28)
[2018-01-21] MEDS: MAGNESIUM OXIDE 400 MG TABLET PO SCH (21:38)
[2018-01-21] MEDS: GABAPENTIN 300 MG CAPSULE PO SCH (21:38)
[2018-01-22] MEDS: ALBUTEROL 2.5 MG/3 ML NEB RESP TX PRN ×4 (02:30→19:31)
[2018-01-22] MEDS: MEROPENEM 1,000 MG in SYRINGE 1 EACH IV SCH ×3 (02:34→20:46)
[2018-01-22 04:16] LABS: Basophils % 0.2 % (0.0-0.8); Eosinophils # 0.1 10*3/uL (0.0-0.87); Eosinophils % 1.3 % (0.00-10.9); Hematocrit 25.6 VOL% (35.7-47.0); Immature Granulocytes % 0.8 %; Immature Granulocytes Absolute 0.05 #; Lymphocytes # 0.8 10*3/uL (1.4-4.0); Lymphocytes % 11.9 % (21.3-54.2); Mean Corpuscular HGB Conc 31.3 GM/DL (32-36); Mean Corpuscular Hemoglobin 30 PG (27-34); Mean Corpuscular Volume 96.2 FL (87-102); Mean Platelet Volume 10.7 FL (9.6-12.0); Monocytes # 0.6 10*3/uL (0.11-0.8); Monocytes % 8.7 % (1.7-12.7); Neutrophils # 4.9 10*3/uL (1.4-7.4); Neutrophils % 77.1 % (38.7-73.9); Platelet Count 195 T/CUMM (130-400); Red Blood Count 2.66 MC/CUMM (3.8-5.5); Red Cell Distribution Width 16.7 % (9.3-17.3); White Blood Count 6.3 T/CUMM (4-12)
[2018-01-22 04:22] LABS: INR 1.4; PT Patient Result 14.2 SECS
[2018-01-22 04:47] LABS: Calcium 8.3 MG/DL (8.5-10.1); Osmolality,Calculated 280.8 MOS/KG (273-304); Potassium 4.6 MMOL/L (3.5-5.1)
[2018-01-22] MEDS: INSULIN LISPRO 100 UNIT/ML SUBCUT SCH ×4 (08:42→20:45)
[2018-01-22] MEDS: CARVEDILOL 25 MG TABLET PO SCH ×2 (08:42→20:45)
[2018-01-22] MEDS: POTASSIUM CHLORIDE 8 MEQ CAPSULE PO SCH ×2 (08:42→20:44)
[2018-01-22] MEDS: GLIMEPIRIDE 4 MG TABLET PO SCH ×2 (08:43→20:45)
[2018-01-22] MEDS: BUDESONIDE/FORMOTEROL 80-4.5 INHALER 6.9 GM INH SCH ×2 (08:43→20:50)
[2018-01-22] MEDS: MULTIVITAMIN (OCUVITE) TABLET PO SCH (08:43)
[2018-01-22] MEDS: DOCUSATE SODIUM 100 MG CAPSULE PO SCH ×2 (08:43→20:45)
[2018-01-22] MEDS: ALLOPURINOL 100 MG TABLET PO SCH (08:43)
[2018-01-22] MEDS: PANTOPRAZOLE 40 MG TABLET PO SCH (08:43)
[2018-01-22] MEDS: FUROSEMIDE 40 MG TABLET PO SCH ×2 (08:43→20:45)
[2018-01-22] MEDS ORDERED: MAGNESIUM HYDROXIDE SUSP 30 ML UDCUP PO ONE (11:15)
[2018-01-22] MEDS: LORATADINE 10 MG TABLET PO PRN (12:03)
[2018-01-22] MEDS: MAGNESIUM OXIDE 400 MG TABLET PO SCH (20:45)
[2018-01-22] MEDS: GABAPENTIN 300 MG CAPSULE PO SCH (20:45)
[2018-01-23] MEDS: ALBUTEROL 2.5 MG/3 ML NEB RESP TX PRN ×4 (00:07→19:25)
[2018-01-23] MEDS: DILTIAZEM INJ 100 MG in SODIUM CHLORIDE 0.9% 100 ML IV SCH (00:30)
[2018-01-23 03:13] LABS: Basophils % 0.2 % (0.0-0.8); Eosinophils # 0.1 10*3/uL (0.0-0.87); Eosinophils % 1.7 % (0.00-10.9); Hematocrit 25.6 VOL% (35.7-47.0); Hemoglobin 7.9 GM/DL (12.0-16.0); Immature Granulocytes % 0.8 %; Immature Granulocytes Absolute 0.04 #; Lymphocytes # 0.9 10*3/uL (1.4-4.0); Lymphocytes % 19.5 % (21.3-54.2); Mean Corpuscular HGB Conc 30.9 GM/DL (32-36); Mean Corpuscular Hemoglobin 30 PG (27-34); Mean Corpuscular Volume 95.5 FL (87-102); Mean Platelet Volume 10.8 FL (9.6-12.0); Monocytes # 0.4 10*3/uL (0.11-0.8); Neutrophils # 3.3 10*3/uL (1.4-7.4); Neutrophils % 68.8 % (38.7-73.9); Platelet Count 213 T/CUMM (130-400); Red Blood Count 2.68 MC/CUMM (3.8-5.5); Red Cell Distribution Width 16.7 % (9.3-17.3); White Blood Count 4.8 T/CUMM (4-12)
[2018-01-23 03:22] LABS: INR 1.3; PT Patient Result 13.1 SECS
[2018-01-23 03:25] LABS: Calcium 8.3 MG/DL (8.5-10.1); Osmolality,Calculated 281.5 MOS/KG (273-304); Potassium 4.2 MMOL/L (3.5-5.1)
[2018-01-23] MEDS: MEROPENEM 1,000 MG in SYRINGE 1 EACH IV SCH ×3 (03:55→18:16)
[2018-01-23] MEDS ORDERED: SODIUM CHLORIDE 0.9% 1,000 ML IV PRN (07:47)
[2018-01-23] MEDS ORDERED: FUROSEMIDE 20 MG/2 ML VIAL IV ONE (07:48)
[2018-01-23] MEDS: POTASSIUM CHLORIDE 8 MEQ CAPSULE PO SCH ×2 (08:49→21:25)
[2018-01-23] MEDS: metOLazone 2.5 MG TABLET PO SCH (08:49)
[2018-01-23] MEDS: MULTIVITAMIN (OCUVITE) TABLET PO SCH (08:49)
[2018-01-23] MEDS: PANTOPRAZOLE 40 MG TABLET PO SCH (08:49)
[2018-01-23] MEDS: GLIMEPIRIDE 4 MG TABLET PO SCH ×2 (08:49→21:25)
[2018-01-23] MEDS: CARVEDILOL 25 MG TABLET PO SCH ×2 (08:49→21:25)
[2018-01-23] MEDS: FUROSEMIDE 40 MG TABLET PO SCH ×2 (08:49→21:25)
[2018-01-23] MEDS: ALLOPURINOL 100 MG TABLET PO SCH (08:50)
[2018-01-23] MEDS: INSULIN LISPRO 100 UNIT/ML SUBCUT SCH ×4 (08:50→21:25)
[2018-01-23] MEDS: BUDESONIDE/FORMOTEROL 80-4.5 INHALER 6.9 GM INH SCH ×2 (08:51→21:26)
[2018-01-23] MEDS: DOCUSATE SODIUM 100 MG CAPSULE PO SCH ×2 (08:52→21:26)
[2018-01-23] MEDS ORDERED: SKIN HEALING OINT (AQUAPHOR) 50 GM TUBE TOP PRN (11:52)
[2018-01-23] MEDS ORDERED: FUROSEMIDE 40 MG/4 ML VIAL IV ONE (12:24)
[2018-01-23] MEDS: GABAPENTIN 300 MG CAPSULE PO SCH (21:25)
[2018-01-23] MEDS: MAGNESIUM OXIDE 400 MG TABLET PO SCH (21:25)
[2018-01-24] MEDS: ALBUTEROL 2.5 MG/3 ML NEB RESP TX PRN ×2 (00:45→07:17)
[2018-01-24] MEDS: DILTIAZEM INJ 100 MG in SODIUM CHLORIDE 0.9% 100 ML IV SCH (00:51)
[2018-01-24] MEDS: MEROPENEM 1,000 MG in SYRINGE 1 EACH IV SCH (04:27)
[2018-01-24 04:59] LABS: Basophils % 0.2 % (0.0-0.8); Eosinophils # 0.1 10*3/uL (0.0-0.87); Eosinophils % 1.4 % (0.00-10.9); Hematocrit 28.1 VOL% (35.7-47.0); Hemoglobin 9.1 GM/DL (12.0-16.0); Immature Granulocytes % 0.8 %; Immature Granulocytes Absolute 0.04 #; Lymphocytes # 1.2 10*3/uL (1.4-4.0); Lymphocytes % 23.9 % (21.3-54.2); Mean Corpuscular HGB Conc 32.4 GM/DL (32-36); Mean Corpuscular Hemoglobin 29 PG (27-34); Mean Corpuscular Volume 90.6 FL (87-102); Mean Platelet Volume 10.5 FL (9.6-12.0); Monocytes # 0.5 10*3/uL (0.11-0.8); Monocytes % 9.8 % (1.7-12.7); Neutrophils # 3.1 10*3/uL (1.4-7.4); Neutrophils % 63.9 % (38.7-73.9); Platelet Count 228 T/CUMM (130-400); Red Cell Distribution Width 17.5 % (9.3-17.3); White Blood Count 4.9 T/CUMM (4-12)
[2018-01-24 05:10] LABS: INR 1.2; PT Patient Result 12.9 SECS
[2018-01-24 05:16] LABS: Calcium 8.2 MG/DL (8.5-10.1); Osmolality,Calculated 278.5 MOS/KG (273-304); Potassium 3.5 MMOL/L (3.5-5.1)
[2018-01-24 08:28] VITALS: BP 140/78
[2018-01-24] MEDS: INSULIN LISPRO 100 UNIT/ML SUBCUT SCH (08:44)
[2018-01-24] MEDS: MULTIVITAMIN (OCUVITE) TABLET PO SCH (08:45)
[2018-01-24] MEDS: GLIMEPIRIDE 4 MG TABLET PO SCH (08:45)
[2018-01-24] MEDS: POTASSIUM CHLORIDE 8 MEQ CAPSULE PO SCH (08:45)
[2018-01-24] MEDS: DOCUSATE SODIUM 100 MG CAPSULE PO SCH (08:45)
[2018-01-24] MEDS: ALLOPURINOL 100 MG TABLET PO SCH (08:45)
[2018-01-24] MEDS: CARVEDILOL 25 MG TABLET PO SCH (08:45)
[2018-01-24] MEDS: PANTOPRAZOLE 40 MG TABLET PO SCH (08:45)
[2018-01-24] MEDS: FUROSEMIDE 40 MG TABLET PO SCH (08:45)
[2018-01-24] MEDS: BUDESONIDE/FORMOTEROL 80-4.5 INHALER 6.9 GM INH SCH (08:46)
== END 2018-01-24 12:20 | disposition home or self-care (01) | DRG 902 ==
LOC: N.ED 22:19 → N.EDINP 22:19 → N.TELES 01-20 03:42
PROVIDERS: ADMIT Family Medicine; ATTEND Family Medicine

== ENCOUNTER 2018-02-26 19:59 | Inpatient (IN) ==
[2018-02-26] MEDS ORDERED: SODIUM CHLORIDE 0.9% 1,000 ML IV STA (20:57)
[2018-02-26] MEDS ORDERED: VANCOMYCIN INJ 1,000 MG in SODIUM CHLORIDE 0.9% 250 ML IV STA (20:59)
[2018-02-26] MEDS ORDERED: PIPERACILLIN/TAZOBACTAM 2,250 MG in SODIUM CHLORIDE 0.9% 100 ML IV STA (20:59)
[2018-02-26] MEDS ORDERED: PIPERACILLIN/TAZOBACTAM 3,375 MG in SODIUM CHLORIDE 0.9% 100 ML IV STA (21:16)
[2018-02-26 21:18] LABS: Basophils % 0.1 % (0.0-0.8); Hematocrit 37.1 VOL% (35.7-47.0); Immature Granulocytes % 0.6 %; Immature Granulocytes Absolute 0.08 #; Lymphocytes # 0.8 10*3/uL (1.4-4.0); Lymphocytes % 5.9 % (21.3-54.2); Mean Corpuscular HGB Conc 32.3 GM/DL (32-36); Mean Corpuscular Hemoglobin 29 PG (27-34); Mean Corpuscular Volume 90.7 FL (87-102); Mean Platelet Volume 10.2 FL (9.6-12.0); Monocytes # 0.8 10*3/uL (0.11-0.8); Monocytes % 5.9 % (1.7-12.7); Neutrophils # 11.8 10*3/uL (1.4-7.4); Neutrophils % 87.5 % (38.7-73.9); Platelet Count 170 T/CUMM (130-400); Red Blood Count 4.09 MC/CUMM (3.8-5.5); Red Cell Distribution Width 16.1 % (9.3-17.3); White Blood Count 13.5 T/CUMM (4-12)
[2018-02-26 21:43] LABS: Albumin 2.9 G/DL (3.4-5.0); Bilirubin,Total 0.8 MG/DL (0.2-1.0); Calcium 8.9 MG/DL (8.5-10.1); Osmolality,Calculated 265.7 MOS/KG (273-304); Potassium 3.3 MMOL/L (3.5-5.1); Total Protein 7.9 G/DL (6.4-8.3)
[2018-02-26] MEDS ORDERED: ACETAMINOPHEN 500 MG TABLET PO STA (21:45)
[2018-02-26 23:25] LABS: Apearance,Urine CLEAR (Clear); Bacteria,Urine Occasional /HPF (Few); Bilirubin,Urine Negative (Negative); Blood, Urine Moderate mg/dL (Negative); Glucose,Urine (UA) Negative (Negative); Hyaline Casts,Urine 1 /LPF (0-3); Ketones,Urine Negative (Negative); Mucus,Urine Occasional /LPF (Occasional); Nitrite,Urine Negative (Negative); Protein,Urine 100 MG/DL; RBC,Urine 9 /HPF (0-4); Squamous Epithelial Cell,Urine Occasional /HPF (0-10); Urine Color Yellow (Yellow); Urine Specific Gravity 1.013 (1.001-1.035); Urine Urobilinogen < 2.0 EU/DL (0.2-1.0); WBC,Urine 3 /HPF (0-6)
[2018-02-27] MEDS ORDERED: ACETAMINOPHEN 325 MG TABLET PO PRN ×2 (00:22→09:14)
[2018-02-27] MEDS ORDERED: ONDANSETRON 4 MG/2 ML VIAL IV PRN (00:22)
[2018-02-27 03:54] LABS: Basophils % 0.1 % (0.0-0.8); Hematocrit 30.7 VOL% (35.7-47.0); Hemoglobin 9.9 GM/DL (12.0-16.0); Immature Granulocytes % 0.5 %; Immature Granulocytes Absolute 0.04 #; Lymphocytes # 0.8 10*3/uL (1.4-4.0); Lymphocytes % 9.3 % (21.3-54.2); Mean Corpuscular HGB Conc 32.2 GM/DL (32-36); Mean Corpuscular Hemoglobin 30 PG (27-34); Mean Corpuscular Volume 91.4 FL (87-102); Mean Platelet Volume 10.1 FL (9.6-12.0); Monocytes # 0.6 10*3/uL (0.11-0.8); Monocytes % 6.7 % (1.7-12.7); Neutrophils # 7.1 10*3/uL (1.4-7.4); Neutrophils % 83.4 % (38.7-73.9); Platelet Count 125 T/CUMM (130-400); Red Blood Count 3.36 MC/CUMM (3.8-5.5); Red Cell Distribution Width 15.9 % (9.3-17.3); White Blood Count 8.5 T/CUMM (4-12)
[2018-02-27 04:34] LABS: Albumin 2.2 G/DL (3.4-5.0); Bilirubin,Total 0.8 MG/DL (0.2-1.0); Calcium 8.1 MG/DL (8.5-10.1); Osmolality,Calculated 270.4 MOS/KG (273-304); Total Protein 6.3 G/DL (6.4-8.3)
[2018-02-27] MEDS: POTASSIUM CHLORIDE 20 MEQ TABLET PO PRN ×3 (05:58→18:57)
[2018-02-27] MEDS ORDERED: ALUMINUM/MAGNES/SIMETH MAX STR 30 ML UDCUP PO PRN (09:09)
[2018-02-27] MEDS ORDERED: ALBUTEROL 2.5 MG/3 ML NEB RESP TX PRN (09:14)
[2018-02-27] MEDS ORDERED: INSULIN GLARGINE 100 UNIT/ML SUBCUT PRN (09:14)
[2018-02-27] MEDS: PIPERACILLIN/TAZOBACTAM 3,375 MG in SODIUM CHLORIDE 0.9% 100 ML IV SCH ×2 (09:46→18:57)
[2018-02-27] MEDS: ENOXAPARIN 40 MG/0.4 ML SYRINGE SUBCUT SCH (09:50)
[2018-02-27 09:54] LABS: INR 2.2
[2018-02-27] MEDS: DOCUSATE SODIUM 100 MG CAPSULE PO SCH ×2 (09:54→21:14)
[2018-02-27] MEDS: PANTOPRAZOLE 40 MG TABLET PO SCH (09:54)
[2018-02-27 10:00] LABS: PT Patient Result 22.7 SECS
[2018-02-27] MEDS: MULTIVITAMIN (OCUVITE) TABLET PO SCH (11:16)
[2018-02-27] MEDS ORDERED: SKIN HEALING OINT (AQUAPHOR) 50 GM TUBE TOP PRN (17:07)
[2018-02-27] MEDS ORDERED: WARFARIN 5 MG TABLET PO SCH (18:00)
[2018-02-27] MEDS: CARVEDILOL 12.5 MG TABLET PO SCH ×2 (20:15→21:16)
[2018-02-27] MEDS ORDERED: BORAGE OIL PO SCH (21:00)
[2018-02-27] MEDS ORDERED: DOCUSATE SODIUM 100 MG CAPSULE PO SCH (21:00)
[2018-02-27] MEDS ORDERED: FISH FLAX PO SCH (21:00)
[2018-02-27] MEDS: GABAPENTIN 300 MG CAPSULE PO SCH (21:14)
[2018-02-27] MEDS: POTASSIUM CHLORIDE 8 MEQ CAPSULE PO SCH (21:14)
[2018-02-27] MEDS: FUROSEMIDE 40 MG TABLET PO SCH (21:16)
[2018-02-27] MEDS: LORATADINE 10 MG TABLET PO PRN (21:16)
[2018-02-27] MEDS: MAGNESIUM OXIDE 400 MG TABLET PO SCH (21:17)
[2018-02-27] MEDS: GLIMEPIRIDE 4 MG TABLET PO SCH (21:18)
[2018-02-28] MEDS: BUDESONIDE/FORMOTEROL 80-4.5 INHALER 6.9 GM INH SCH ×3 (01:04→20:23)
[2018-02-28] MEDS: PIPERACILLIN/TAZOBACTAM 3,375 MG in SODIUM CHLORIDE 0.9% 100 ML IV SCH ×3 (02:55→18:33)
[2018-02-28 05:20] LABS: Basophils % 0.5 % (0.0-0.8); Eosinophils # 0.1 10*3/uL (0.0-0.87); Eosinophils % 2.4 % (0.00-10.9); Hematocrit 32.4 VOL% (35.7-47.0); Hemoglobin 10.5 GM/DL (12.0-16.0); Immature Granulocytes % 0.3 %; Immature Granulocytes Absolute 0.02 #; Lymphocytes # 0.7 10*3/uL (1.4-4.0); Lymphocytes % 11.8 % (21.3-54.2); Mean Corpuscular HGB Conc 32.4 GM/DL (32-36); Mean Corpuscular Hemoglobin 29 PG (27-34); Mean Platelet Volume 10.9 FL (9.6-12.0); Monocytes # 0.5 10*3/uL (0.11-0.8); Monocytes % 8.8 % (1.7-12.7); Neutrophils # 4.5 10*3/uL (1.4-7.4); Neutrophils % 76.2 % (38.7-73.9); Platelet Count 141 T/CUMM (130-400); Red Cell Distribution Width 16.2 % (9.3-17.3); White Blood Count 5.9 T/CUMM (4-12)
[2018-02-28 05:27] LABS: INR 1.9; PT Patient Result 19.4 SECS
[2018-02-28 05:33] LABS: Calcium 8.1 MG/DL (8.5-10.1); Osmolality,Calculated 268.2 MOS/KG (273-304); Potassium 4.1 MMOL/L (3.5-5.1)
[2018-02-28] MEDS ORDERED: cloNIDine 0.1 MG TABLET PO PRN (08:42)
[2018-02-28] MEDS ORDERED: PANTOPRAZOLE 40 MG TABLET PO SCH (09:00)
[2018-02-28] MEDS: CARVEDILOL 12.5 MG TABLET PO SCH ×2 (09:48→20:22)
[2018-02-28] MEDS: FUROSEMIDE 40 MG TABLET PO SCH ×2 (09:48→20:22)
[2018-02-28] MEDS: POTASSIUM CHLORIDE 8 MEQ CAPSULE PO SCH ×2 (09:48→20:22)
[2018-02-28] MEDS: OMEGA 3 ACID ETHYL ESTERS 1 GM CAPSULE PO SCH (09:48)
[2018-02-28] MEDS: ENOXAPARIN 40 MG/0.4 ML SYRINGE SUBCUT SCH (09:48)
[2018-02-28] MEDS: ALLOPURINOL 100 MG TABLET PO SCH (09:48)
[2018-02-28] MEDS: metOLazone 2.5 MG TABLET PO SCH (09:48)
[2018-02-28] MEDS: MULTIVITAMIN (OCUVITE) TABLET PO SCH (09:48)
[2018-02-28] MEDS: PANTOPRAZOLE 40 MG TABLET PO SCH (09:48)
[2018-02-28] MEDS: GLIMEPIRIDE 4 MG TABLET PO SCH ×2 (10:32→20:22)
[2018-02-28] MEDS: DOCUSATE SODIUM 100 MG CAPSULE PO SCH ×2 (10:33→20:22)
[2018-02-28] MEDS: WARFARIN 7.5 MG TABLET PO SCH (18:54)
[2018-02-28] MEDS: LORATADINE 10 MG TABLET PO PRN (20:22)
[2018-02-28] MEDS: GABAPENTIN 300 MG CAPSULE PO SCH (20:22)
[2018-02-28] MEDS: MAGNESIUM OXIDE 400 MG TABLET PO SCH (20:25)
[2018-03-01] MEDS: PIPERACILLIN/TAZOBACTAM 3,375 MG in SODIUM CHLORIDE 0.9% 100 ML IV SCH ×3 (01:10→18:28)
[2018-03-01 03:15] LABS: Basophils % 0.4 % (0.0-0.8); Eosinophils # 0.2 10*3/uL (0.0-0.87); Eosinophils % 4.1 % (0.00-10.9); Hematocrit 31.4 VOL% (35.7-47.0); Hemoglobin 10.4 GM/DL (12.0-16.0); Immature Granulocytes % 0.8 %; Immature Granulocytes Absolute 0.04 #; Lymphocytes # 0.9 10*3/uL (1.4-4.0); Lymphocytes % 16.7 % (21.3-54.2); Mean Corpuscular HGB Conc 33.1 GM/DL (32-36); Mean Corpuscular Hemoglobin 30 PG (27-34); Mean Corpuscular Volume 89.7 FL (87-102); Mean Platelet Volume 10.2 FL (9.6-12.0); Monocytes # 0.5 10*3/uL (0.11-0.8); Monocytes % 10.5 % (1.7-12.7); Neutrophils # 3.5 10*3/uL (1.4-7.4); Neutrophils % 67.5 % (38.7-73.9); Platelet Count 154 T/CUMM (130-400); Red Cell Distribution Width 16.1 % (9.3-17.3); White Blood Count 5.2 T/CUMM (4-12)
[2018-03-01 03:24] LABS: PT Patient Result 20.9 SECS
[2018-03-01 03:37] LABS: Calcium 8.3 MG/DL (8.5-10.1); Osmolality,Calculated 268.2 MOS/KG (273-304); Potassium 3.5 MMOL/L (3.5-5.1)
[2018-03-01] MEDS: POTASSIUM CHLORIDE 8 MEQ CAPSULE PO SCH ×2 (09:13→22:01)
[2018-03-01] MEDS: ENOXAPARIN 40 MG/0.4 ML SYRINGE SUBCUT SCH (09:13)
[2018-03-01] MEDS: PANTOPRAZOLE 40 MG TABLET PO SCH (09:13)
[2018-03-01] MEDS: metOLazone 2.5 MG TABLET PO SCH (09:13)
[2018-03-01] MEDS: CARVEDILOL 12.5 MG TABLET PO SCH ×2 (09:14→22:01)
[2018-03-01] MEDS: MULTIVITAMIN (OCUVITE) TABLET PO SCH (09:14)
[2018-03-01] MEDS: BUDESONIDE/FORMOTEROL 80-4.5 INHALER 6.9 GM INH SCH ×2 (09:14→22:03)
[2018-03-01] MEDS: DOCUSATE SODIUM 100 MG CAPSULE PO SCH ×2 (09:14→22:01)
[2018-03-01] MEDS: OMEGA 3 ACID ETHYL ESTERS 1 GM CAPSULE PO SCH (09:14)
[2018-03-01] MEDS: FUROSEMIDE 40 MG TABLET PO SCH ×2 (09:14→22:01)
[2018-03-01] MEDS: ALLOPURINOL 100 MG TABLET PO SCH (09:14)
[2018-03-01] MEDS: GLIMEPIRIDE 4 MG TABLET PO SCH ×2 (09:17→22:01)
[2018-03-01 11:24] LABS: Apearance,Urine CLEAR (Clear); Bilirubin,Urine Negative (Negative); Blood, Urine Moderate mg/dL (Negative); Glucose,Urine (UA) Negative (Negative); Ketones,Urine Negative (Negative); Mucus,Urine Occasional /LPF (Occasional); Nitrite,Urine Negative (Negative); Protein,Urine Negative; RBC,Urine 2 /HPF (0-4); Urine Color Straw (Yellow); Urine Specific Gravity 1.004 (1.001-1.035); Urine Urobilinogen < 2.0 EU/DL (0.2-1.0); WBC,Urine <1 /HPF (0-6)
[2018-03-01] MEDS: WARFARIN 7.5 MG TABLET PO SCH (18:28)
[2018-03-01] MEDS: GABAPENTIN 300 MG CAPSULE PO SCH (22:01)
[2018-03-01] MEDS: MAGNESIUM OXIDE 400 MG TABLET PO SCH (22:01)
[2018-03-02] MEDS: PIPERACILLIN/TAZOBACTAM 3,375 MG in SODIUM CHLORIDE 0.9% 100 ML IV SCH ×2 (01:55→09:20)
[2018-03-02 06:43] LABS: INR 2.4
[2018-03-02 06:49] LABS: PT Patient Result 24.9 SECS
[2018-03-02 08:43] VITALS: BP 179/79
[2018-03-02] MEDS: metOLazone 2.5 MG TABLET PO SCH (09:14)
[2018-03-02] MEDS: MULTIVITAMIN (OCUVITE) TABLET PO SCH (09:14)
[2018-03-02] MEDS: ALLOPURINOL 100 MG TABLET PO SCH (09:14)
[2018-03-02] MEDS: ENOXAPARIN 40 MG/0.4 ML SYRINGE SUBCUT SCH (09:14)
[2018-03-02] MEDS: PANTOPRAZOLE 40 MG TABLET PO SCH (09:14)
[2018-03-02] MEDS: POTASSIUM CHLORIDE 8 MEQ CAPSULE PO SCH (09:14)
[2018-03-02] MEDS: OMEGA 3 ACID ETHYL ESTERS 1 GM CAPSULE PO SCH (09:14)
[2018-03-02] MEDS: GLIMEPIRIDE 4 MG TABLET PO SCH (09:14)
[2018-03-02] MEDS: FUROSEMIDE 40 MG TABLET PO SCH ×2 (09:15→09:20)
[2018-03-02] MEDS: DOCUSATE SODIUM 100 MG CAPSULE PO SCH (09:15)
[2018-03-02] MEDS: CARVEDILOL 12.5 MG TABLET PO SCH (09:15)
[2018-03-02] MEDS: BUDESONIDE/FORMOTEROL 80-4.5 INHALER 6.9 GM INH SCH (09:15)
== END 2018-03-02 10:25 | disposition home health service (06) | DRG 194 ==
LOC: N.ED 19:59 → N.EDINP 19:59 → N.TELEN 02-27 01:16
PROVIDERS: ADMIT Internal Medicine; ATTEND Internal Medicine